=== PATIENT | male | born 1950 | race Caucasian/White ===

== ENCOUNTER 2022-02-12 13:20 | Inpatient (IN) | payer OTHER, SELFPAY ==
[2022-02-12] VITALS (12 sets, daily range): BP systolic 106–149; BP diastolic 64–88; PULSE 86–92; RESP 18–46; O2SAT 99–100; BMI 19.8; BMI 17.9
--- NOTE | 2022-02-12 14:00 | DI.RAD.S_ITS ---
PROCEDURE: XR ACUTE ABDOMEN SERIES INDICATIONS: abdominal pain, decreased BM TECHNIQUE: One view chest and two views of the abdomen were acquired. COMPARISON: None. FINDINGS: Surgical changes and devices: None. Chest: Lungs are clear. Heart size is normal. No pleural effusions. No pneumoperitoneum. Abdomen: Prominent colonic stool is present. There are several mildly dilated loops of colon in overall nonspecific pattern. No suspicious calcifications. Visualized solid organ contours appear normal. Bones: No suspicious bony lesions. IMPRESSION: Several prominent: Loops with significant stool consistent with constipation. Overall gas pattern is nonspecific. Dictated by: Margot Garcia M.D. on 02/12/2022 at 15:06 Approved by: Margot Garcia M.D. on 02/12/2022 at 15:15
--- NOTE | 2022-02-12 14:01 | ED_ITS ---
HPI - General Adult General Chief complaint: Abdominal Pain Stated complaint: Pain in Legs/Abdomen Time Seen by Provider: 02/12/22 13:32 History of Present Illness HPI narrative: 71-year-old male smoker presents by EMS for evaluation of abdominal pain and decreased bowel movements. He is well known to their EMS service and apparently frequently goes to [facility]. He lives at home alone but frequently has friends to check on him. He apparently has not been taking his medications for quite some time and has not been able to eat or drink. He does not have a phone and has not been able to call. He was seen by APS today who finally talked him into coming to be seen. He states he has not had a bowel movement multiple weeks and is unable to eat or drink, he does not have access to food and it is unclear why he is not taking his medications. He denies dizziness, lightheadedness but is profoundly weak. He denies chest pain, cough or shortness of breath. He states that he has abdominal pain and has had trouble with bowel movements for quite some time. He denies any urinary complaints. EMS states that his house is in terrible disrepair, patient is covered in his own urine and feces Related Data Allergies Allergy/AdvReac Type Severity Reaction Status Date / Time acetaminophen AdvReac Verified 02/12/22 14:11 aspirin AdvReac Verified 02/12/22 14:11 NSAIDS (Non-Steroidal AdvReac Verified 02/12/22 14:11 Anti-Inflamma Review of Systems Review of Systems Narrative: GENERAL: See HPI. HEENT: Denies sinus pain, ear pain, sore throat, difficulty swallowing, dizziness. RESPIRATORY: See HPI CARDIOVASCULAR: Denies chest pain, palpitations, orthopnea, edema, GASTROINTESTINAL: See HPI : Denies dysuria, frequency, incontinence, hematuria, urinary retention. MUSCULOSKELETAL: denies weakness, joint pain, or bony pain SKIN: Denies rash, skin lesions, or other NEUROLOGIC: Denies weakness, headache, numbness, change in speech, confusion, seizures, incoordination. PSYCHIATRIC: No concerning psychosocial issues. 12 point review of systems is negative except for those stated above Patient History Social History household members: friend(s) Smoking Status: Former smoker alcohol intake: former Exam Narrative Exam Narrative: GENERAL: [71] year old patient appears older than stated age. Thin, temporal wasting, poor skin turgor, foul-smelling of urine and fecal material HEAD: Atraumatic. Normocephalic. EYES: Pupils equal round and reactive. Extraocular motions intact. No scleral icterus. No injection or drainage. ENT: Poor dentition throughout, dry mucous membranes Nose without bleeding, purulent drainage. Throat without erythema, tonsillar hypertrophy or exudate. Airway patent. NECK: Trachea midline. Non tender CARDIOVASCULAR: Regular rate and rhythm without murmurs, gallops, or rubs. RESPIRATORY: Clear to auscultation. Breath sounds equal bilaterally. No wheezes, rales, or rhonchi. GASTROINTESTINAL: Abdomen soft, mild generalized tenderness, nondistended. Decreased bowel sounds in all 4 quadrants EXTREMITIES: Evidence of chronic venous stasis and some swelling, this is reported to be significantly improved over historical presentation by EMS BACK: Nontender without deformity or crepitance. No flank tenderness. NEURO: AOx3. SKIN: No rash or erythema of visible areas Initial Vital Signs Initial Vital Signs: Vital Signs Pulse Rate 91 H 02/12/22 13:57 Respiratory Rate 33 H 02/12/22 13:57 Pulse Oximetry 100 02/12/22 13:57 Course Orders Ordered: Hydromorphone HCl (Hydromorphone 0.5 Mg Inj) 0.25 mg IV Q4H PRN PRN Reason: Pain, Moderate (4-6) Last Admin: 02/13/22 00:23 Dose: 0.25 mg Documented By: JAMES Ceftriaxone Sodium 1,000 mg/ (Sodium Chloride) 100 mls @ 200 mls/hr IV Q24H [facility] Stop: 02/18/22 08:59 Last Admin: 02/13/22 08:56 Dose: 200 mls/hr Documented By: CANDIDO Melatonin (Melatonin 3 Mg Tablet) 6 mg PO BEDTIME PRN PRN Reason: Insomnia Naloxone HCl (Naloxone 0.4 Mg/Ml Vial) 0.2 mg IV Q2MIN PRN PRN Reason: Opiate Reversal Pantoprazole Sodium (Pantoprazole Dr 40 Mg Tablet) 40 mg PO 0700 [facility] Last Admin: 02/13/22 06:02 Dose: 40 mg Documented By: Admin: 02/12/22 19:46 Dose: 40 mg Documented By: JAMES Polyethylene Glycol (Polyethylene Glycol 3350 17 Gm Powd.Pack) 17 gm PO DAILY [facility] Last Admin: 02/13/22 09:11 Dose: Not Given Documented By: CANDIDO Sennosides (Sennosides 8.6 Mg Tablet) 8.6 mg PO BID [facility] Last Admin: 02/13/22 09:12 Dose: Not Given Documented By: Admin: 02/12/22 22:21 Dose: 8.6 mg Documented By: JAMES Discontinued Medications Sodium Chloride (Normal Saline 0.9%) 1,000 mls @ 1,000 mls/hr IV BOLUS ONE Stop: 02/12/22 14:48 Last Infusion: 02/12/22 16:43 Dose: 0 mls/hr Documented By: Admin: 02/12/22 15:16 Dose: 1,000 mls/hr Documented By: KAREN Sodium Chloride (Normal Saline 0.9%) 1,000 mls @ 1,000 mls/hr IV BOLUS ONE Stop: 02/12/22 17:52 Last Admin: 02/12/22 17:20 Dose: 1,000 mls/hr Documented By: KAREN Ceftriaxone Sodium 2,000 mg/ (Sodium Chloride) 100 mls @ 200 mls/hr IV NOW ONE Stop: 02/12/22 16:54 Last Admin: 02/12/22 17:20 Dose: 200 mls/hr Documented By: KAREN Sodium Chloride (Normal Saline 0.9%) 1,000 mls @ 125 mls/hr IV CONT KELLI Stop: 02/13/22 06:14 Last Admin: 02/13/22 04:05 Dose: 125 mls/hr Documented By: Infusion: 02/13/22 02:35 Dose: 125 mls/hr Documented By: Admin: 02/12/22 18:35 Dose: 125 mls/hr Documented By: CHELSI Potassium Chloride (Potassium Chloride 20 Meq Tab) 40 meq PO NOW ONE Stop: 02/12/22 18:45 Last Admin: 02/12/22 19:46 Dose: 40 meq Documented By: JAMES Vital Signs Vital signs: Vital Signs - 8 hr 02/12/22 13:57 02/12/22 14:00 02/12/22 14:22 Pulse Rate 91 H 92 H Respiratory Rate 33 H 40 H Blood Pressure 106/64 Pulse Oximetry 100 99 02/12/22 14:22 02/12/22 14:38 02/12/22 14:38 Pulse Rate 87 91 H Respiratory Rate 25 H 29 H Blood Pressure 138/80 Pulse Oximetry 100 99 02/12/22 15:00 02/12/22 15:00 02/12/22 15:30 Pulse Rate 88 Respiratory Rate 31 H Blood Pressure 134/74 134/74 Pulse Oximetry 100 02/12/22 15:30 02/12/22 16:00 02/12/22 16:00 Pulse Rate 86 88 Respiratory Rate 27 H 46 H Blood Pressure 149/80 H Pulse Oximetry 100 100 02/12/22 16:27 02/12/22 16:27 02/12/22 16:30 Pulse Rate 89 Respiratory Rate 22 Blood Pressure 139/79 143/88 H Pulse Oximetry 100 02/12/22 16:30 02/12/22 17:00 02/12/22 17:00 Pulse Rate 87 87 Respiratory Rate 22 21 Blood Pressure 140/81 Pulse Oximetry 100 100 02/12/22 17:30 Pulse Rate 90 Respiratory Rate 22 Blood Pressure Pulse Oximetry 100 Medical Decision Making Lab Data Result diagrams: 02/13/22 05:55 02/13/22 05:55 Labs: Lab Results 02/12/22 02/12/22 02/12/22 Range/Units 14:31 14:31 14:31 WBC 3.9 L (4.5-11.0) X10^3/uL RBC 2.99 L (4.5-5.9) X10^6/uL Hgb 9.2 L (13.5-17.5) g/dL Hct 27.0 L (41-53) % MCV 90.5 (80-100) fL MCH 30.8 (26-34) PG MCHC 34.0 (30-36) % RDW 16.7 H (11.6-14.8) % Plt Count 85 L (150-400) X10^3/uL Neut % (Auto) 57.3 (50-75) % Lymph % (Auto) 31.9 (25-40) % [place] % (Auto) 9.0 (3-14) % Eos % (Auto) 0.9 L (2-4) % Baso % (Auto) 0.9 (0-2) % Neut # (Auto) 2300 (2079-8641) /uL Lymph # (Auto) 1300 (7062-0857) /uL [place] # (Auto) 400 (0-900) /uL Eos # (Auto) 0 (0-450) /uL Baso # (Auto) 0 (0-100) /uL ESR 64 H (0-15) MM/HR PT 15.5 H (10.1-12.7) SECONDS INR 1.3 (0.9-1.3) APTT 28 (26-36) SECONDS Sodium 139 (137-145) mmol/L Potassium 3.4 (3.4-5.1) mmol/L Chloride 108 H (98-107) mmol/L Carbon Dioxide 23 (22-32) mmol/L BUN 15 (9-20) mg/dL Creatinine 0.75 (0.66-1.25) mg/dL Estimated GFR > 60 (>60) mL/min BUN/Creatinine Ratio 20.0 (6-22) Glucose 84 (80-110) mg/dL Lactate (0.7-2.1) mmol/L Calcium 7.2 L (8.4-10.2) mg/dL Magnesium 1.8 (1.6-2.3) mg/dL Total Bilirubin 0.5 (0.2-1.3) mg/dL AST 32 (17-59) IU/L ALT 17 (<50) IU/L Alkaline Phosphatase 191 H (38-126) U/L Total Creatine Kinase 41 L (55-170) U/L CK-MB (CK-2) TNP CK-MB (CK-2) Rel Index TNP Troponin I < 0.012 (0.01-0.034) ng/mL C-Reactive Protein 1.0 (<1.0) mg/dL NT-Pro-B Natriuret Pep 148 H (<125) pg/mL Total Protein 7.0 (6.3-8.2) g/dL Albumin 2.5 L (3.5-5.0) g/dL Globulin 4.5 H (1.7-4.1) g/dL Albumin/Globulin Ratio 0.6 L (1.0-2.8) Lipase 522 H (23-300) U/L Procalcitonin (<0.5) ng/mL TSH (0.47-4.68) uIU/mL Urine Color Urine Appearance Urine pH Ur Specific [place] Urine Protein Urine Glucose (UA) Urine Ketones Urine Occult Blood Urine Nitrate Urine Bilirubin Ur Bilirubin Confirm (Negative) Urine Urobilinogen Ur Leukocyte Esterase Urine RBC Urine WBC Ur Squamous Epith Cells Ur Transition Epith Cell Ur Renal Epithelial Cell Calcium Oxalate Crystal Uric Acid Crystals Triple Phos Crystals Other Crystals Amorphous Sediment Urine Bacteria Hyaline Casts Granular Casts RBC Casts WBC Casts Other Casts Urine Mucus Urine Trichomonas Urine Yeast Urine Sperm Ur Culture Indicated? Micro UA Comment U Opiates 300ng/mL cut (Negative) Ur Oxycodone Screen (Negative) Urine Methadone Screen (Negative) Ur Barbiturates Screen (Negative) U Tricyclic Antidepress (Negative) Ur Phencyclidine Scrn (Negative) Ur Amphetamines Screen (Negative) U Methamphetamines Scrn (Negative) Ur MDMA Scrn (Ecstasy) (Negative) U Benzodiazepines Scrn (Negative) Urine Cocaine Screen (Negative) U Marijuana (THC) Screen (Negative) Ethyl Alcohol ( - 10) mg/dL SARS-CoV-2 (PCR) (Negative) 02/12/22 02/12/22 02/12/22 Range/Units 14:31 14:31 14:31 WBC (4.5-11.0) X10^3/uL RBC (4.5-5.9) X10^6/uL Hgb (13.5-17.5) g/dL Hct (41-53) % MCV (80-100) fL MCH (26-34) PG MCHC (30-36) % RDW (11.6-14.8) % Plt Count (150-400) X10^3/uL Neut % (Auto) (50-75) % Lymph % (Auto) (25-40) % [place] % (Auto) (3-14) % Eos % (Auto) (2-4) % Baso % (Auto) (0-2) % Neut # (Auto) (7938-1190) /uL Lymph # (Auto) (9986-7575) /uL [place] # (Auto) (0-900) /uL Eos # (Auto) (0-450) /uL Baso # (Auto) (0-100) /uL ESR (0-15) MM/HR PT (10.1-12.7) SECONDS INR (0.9-1.3) APTT (26-36) SECONDS Sodium (137-145) mmol/L Potassium (3.4-5.1) mmol/L Chloride (98-107) mmol/L Carbon Dioxide (22-32) mmol/L BUN (9-20) mg/dL Creatinine (0.66-1.25) mg/dL Estimated GFR (>60) mL/min BUN/Creatinine Ratio (6-22) Glucose (80-110) mg/dL Lactate 2.3 H (0.7-2.1) mmol/L Calcium (8.4-10.2) mg/dL Magnesium (1.6-2.3) mg/dL Total Bilirubin (0.2-1.3) mg/dL AST (17-59) IU/L ALT (<50) IU/L Alkaline Phosphatase (38-126) U/L Total Creatine Kinase (55-170) U/L CK-MB (CK-2) CK-MB (CK-2) Rel Index Troponin I (0.01-0.034) ng/mL C-Reactive Protein (<1.0) mg/dL NT-Pro-B Natriuret Pep (<125) pg/mL Total Protein (6.3-8.2) g/dL Albumin (3.5-5.0) g/dL Globulin (1.7-4.1) g/dL Albumin/Globulin Ratio (1.0-2.8) Lipase (23-300) U/L Procalcitonin 0.13 (<0.5) ng/mL TSH 3.38 (0.47-4.68) uIU/mL Urine Color Urine Appearance Urine pH Ur Specific [place] Urine Protein Urine Glucose (UA) Urine Ketones Urine Occult Blood Urine Nitrate Urine Bilirubin Ur Bilirubin Confirm (Negative) Urine Urobilinogen Ur Leukocyte Esterase Urine RBC Urine WBC Ur Squamous Epith Cells Ur Transition Epith Cell Ur Renal Epithelial Cell Calcium Oxalate Crystal Uric Acid Crystals Triple Phos Crystals Other Crystals Amorphous Sediment Urine Bacteria Hyaline Casts Granular Casts RBC Casts WBC Casts Other Casts Urine Mucus Urine Trichomonas Urine Yeast Urine Sperm Ur Culture Indicated? Micro UA Comment U Opiates 300ng/mL cut (Negative) Ur Oxycodone Screen (Negative) Urine Methadone Screen (Negative) Ur Barbiturates Screen (Negative) U Tricyclic Antidepress (Negative) Ur Phencyclidine Scrn (Negative) Ur Amphetamines Screen (Negative) U Methamphetamines Scrn (Negative) Ur MDMA Scrn (Ecstasy) (Negative) U Benzodiazepines Scrn (Negative) Urine Cocaine Screen (Negative) U Marijuana (THC) Screen (Negative) Ethyl Alcohol ( - 10) mg/dL SARS-CoV-2 (PCR) (Negative) 02/12/22 02/12/22 02/12/22 Range/Units 14:31 15:46 15:46 WBC (4.5-11.0) X10^3/uL RBC (4.5-5.9) X10^6/uL Hgb (13.5-17.5) g/dL Hct (41-53) % MCV (80-100) fL MCH (26-34) PG MCHC (30-36) % RDW (11.6-14.8) % Plt Count (150-400) X10^3/uL Neut % (Auto) (50-75) % Lymph % (Auto) (25-40) % [place] % (Auto) (3-14) % Eos % (Auto) (2-4) % Baso % (Auto) (0-2) % Neut # (Auto) (9425-5512) /uL Lymph # (Auto) (3784-3246) /uL [place] # (Auto) (0-900) /uL Eos # (Auto) (0-450) /uL Baso # (Auto) (0-100) /uL ESR (0-15) MM/HR PT (10.1-12.7) SECONDS INR (0.9-1.3) APTT (26-36) SECONDS Sodium (137-145) mmol/L Potassium (3.4-5.1) mmol/L Chloride (98-107) mmol/L Carbon Dioxide (22-32) mmol/L BUN (9-20) mg/dL Creatinine (0.66-1.25) mg/dL Estimated GFR (>60) mL/min BUN/Creatinine Ratio (6-22) Glucose (80-110) mg/dL Lactate (0.7-2.1) mmol/L Calcium (8.4-10.2) mg/dL Magnesium (1.6-2.3) mg/dL Total Bilirubin (0.2-1.3) mg/dL AST (17-59) IU/L ALT (<50) IU/L Alkaline Phosphatase (38-126) U/L Total Creatine Kinase (55-170) U/L CK-MB (CK-2) CK-MB (CK-2) Rel Index Troponin I (0.01-0.034) ng/mL C-Reactive Protein (<1.0) mg/dL NT-Pro-B Natriuret Pep (<125) pg/mL Total Protein (6.3-8.2) g/dL Albumin (3.5-5.0) g/dL Globulin (1.7-4.1) g/dL Albumin/Globulin Ratio (1.0-2.8) Lipase (23-300) U/L Procalcitonin (<0.5) ng/mL TSH (0.47-4.68) uIU/mL Urine Color Cancelled Urine Appearance Cancelled Urine pH Cancelled Ur Specific [place] Cancelled Urine Protein Cancelled Urine Glucose (UA) Cancelled Urine Ketones Cancelled Urine Occult Blood Cancelled Urine Nitrate Cancelled Urine Bilirubin Cancelled Ur Bilirubin Confirm (Negative) Urine Urobilinogen Cancelled Ur Leukocyte Esterase Cancelled Urine RBC Cancelled 30-100/hpf H Urine WBC Cancelled 5-10/hpf H Ur Squamous Epith Cells Cancelled Ur Transition Epith Cell Cancelled Ur Renal Epithelial Cell Cancelled Calcium Oxalate Crystal Cancelled Uric Acid Crystals Cancelled Triple Phos Crystals Cancelled Other Crystals Cancelled Amorphous Sediment Cancelled Urine Bacteria Cancelled Many (>30) H Hyaline Casts Cancelled Granular Casts Cancelled RBC Casts Cancelled WBC Casts Cancelled Other Casts Cancelled Urine Mucus Cancelled Urine Trichomonas Cancelled Urine Yeast Cancelled Urine Sperm Cancelled Ur Culture Indicated? Cancelled Micro UA Comment Cancelled U Opiates 300ng/mL cut (Negative) Ur Oxycodone Screen (Negative) Urine Methadone Screen (Negative) Ur Barbiturates Screen (Negative) U Tricyclic Antidepress (Negative) Ur Phencyclidine Scrn (Negative) Ur Amphetamines Screen (Negative) U Methamphetamines Scrn (Negative) Ur MDMA Scrn (Ecstasy) (Negative) U Benzodiazepines Scrn (Negative) Urine Cocaine Screen (Negative) U Marijuana (THC) Screen (Negative) Ethyl Alcohol < 10 ( - 10) mg/dL SARS-CoV-2 (PCR) (Negative) 02/12/22 02/12/22 02/12/22 Range/Units 15:46 15:46 15:46 WBC (4.5-11.0) X10^3/uL RBC (4.5-5.9) X10^6/uL Hgb (13.5-17.5) g/dL Hct (41-53) % MCV (80-100) fL MCH (26-34) PG MCHC (30-36) % RDW (11.6-14.8) % Plt Count (150-400) X10^3/uL Neut % (Auto) (50-75) % Lymph % (Auto) (25-40) % [place] % (Auto) (3-14) % Eos % (Auto) (2-4) % Baso % (Auto) (0-2) % Neut # (Auto) (1693-9824) /uL Lymph # (Auto) (9794-0004) /uL [place] # (Auto) (0-900) /uL Eos # (Auto) (0-450) /uL Baso # (Auto) (0-100) /uL ESR (0-15) MM/HR PT (10.1-12.7) SECONDS INR (0.9-1.3) APTT (26-36) SECONDS Sodium (137-145) mmol/L Potassium (3.4-5.1) mmol/L Chloride (98-107) mmol/L Carbon Dioxide (22-32) mmol/L BUN (9-20) mg/dL Creatinine (0.66-1.25) mg/dL Estimated GFR (>60) mL/min BUN/Creatinine Ratio (6-22) Glucose (80-110) mg/dL Lactate (0.7-2.1) mmol/L Calcium (8.4-10.2) mg/dL Magnesium (1.6-2.3) mg/dL Total Bilirubin (0.2-1.3) mg/dL AST (17-59) IU/L ALT (<50) IU/L Alkaline Phosphatase (38-126) U/L Total Creatine Kinase (55-170) U/L CK-MB (CK-2) CK-MB (CK-2) Rel Index Troponin I (0.01-0.034) ng/mL C-Reactive Protein (<1.0) mg/dL NT-Pro-B Natriuret Pep (<125) pg/mL Total Protein (6.3-8.2) g/dL Albumin (3.5-5.0) g/dL Globulin (1.7-4.1) g/dL Albumin/Globulin Ratio (1.0-2.8) Lipase (23-300) U/L Procalcitonin (<0.5) ng/mL TSH (0.47-4.68) uIU/mL Urine Color Cancelled Urine Appearance Cancelled Urine pH Cancelled Ur Specific [place] Cancelled Urine Protein Cancelled Urine Glucose (UA) Cancelled Urine Ketones Cancelled Urine Occult Blood Cancelled Urine Nitrate Cancelled Urine Bilirubin Cancelled Ur Bilirubin Confirm Negative (Negative) Urine Urobilinogen Cancelled Ur Leukocyte Esterase Cancelled Urine RBC Cancelled Urine WBC Cancelled Ur Squamous Epith Cells Cancelled Ur Transition Epith Cell Cancelled Ur Renal Epithelial Cell Cancelled Calcium Oxalate Crystal Cancelled Uric Acid Crystals Cancelled Triple Phos Crystals Cancelled Other Crystals Cancelled Amorphous Sediment Cancelled Urine Bacteria Cancelled Hyaline Casts Cancelled Granular Casts Cancelled RBC Casts Cancelled WBC Casts Cancelled Other Casts Cancelled Urine Mucus Cancelled Urine Trichomonas Cancelled Urine Yeast Cancelled Urine Sperm Cancelled Ur Culture Indicated? Cancelled Micro UA Comment Cancelled U Opiates 300ng/mL cut Negative (Negative) Ur Oxycodone Screen Negative (Negative) Urine Methadone Screen Negative (Negative) Ur Barbiturates Screen Negative (Negative) U Tricyclic Antidepress Negative (Negative) Ur Phencyclidine Scrn Negative (Negative) Ur Amphetamines Screen Negative (Negative) U Methamphetamines Scrn Positive H (Negative) Ur MDMA Scrn (Ecstasy) Negative (Negative) U Benzodiazepines Scrn Negative (Negative) Urine Cocaine Screen Negative (Negative) U Marijuana (THC) Screen Negative (Negative) Ethyl Alcohol ( - 10) mg/dL SARS-CoV-2 (PCR) (Negative) 02/12/22 02/12/22 Range/Units 16:11 16:40 WBC (4.5-11.0) X10^3/uL RBC (4.5-5.9) X10^6/uL Hgb (13.5-17.5) g/dL Hct (41-53) % MCV (80-100) fL MCH (26-34) PG MCHC (30-36) % RDW (11.6-14.8) % Plt Count (150-400) X10^3/uL Neut % (Auto) (50-75) % Lymph % (Auto) (25-40) % [place] % (Auto) (3-14) % Eos % (Auto) (2-4) % Baso % (Auto) (0-2) % Neut # (Auto) (9457-8740) /uL Lymph # (Auto) (9224-5535) /uL [place] # (Auto) (0-900) /uL Eos # (Auto) (0-450) /uL Baso # (Auto) (0-100) /uL ESR (0-15) MM/HR PT (10.1-12.7) SECONDS INR (0.9-1.3) APTT (26-36) SECONDS Sodium (137-145) mmol/L Potassium (3.4-5.1) mmol/L Chloride (98-107) mmol/L Carbon Dioxide (22-32) mmol/L BUN (9-20) mg/dL Creatinine (0.66-1.25) mg/dL Estimated GFR (>60) mL/min BUN/Creatinine Ratio (6-22) Glucose (80-110) mg/dL Lactate 1.3 (0.7-2.1) mmol/L Calcium (8.4-10.2) mg/dL Magnesium (1.6-2.3) mg/dL Total Bilirubin (0.2-1.3) mg/dL AST (17-59) IU/L ALT (<50) IU/L Alkaline Phosphatase (38-126) U/L Total Creatine Kinase (55-170) U/L CK-MB (CK-2) CK-MB (CK-2) Rel Index Troponin I (0.01-0.034) ng/mL C-Reactive Protein (<1.0) mg/dL NT-Pro-B Natriuret Pep (<125) pg/mL Total Protein (6.3-8.2) g/dL Albumin (3.5-5.0) g/dL Globulin (1.7-4.1) g/dL Albumin/Globulin Ratio (1.0-2.8) Lipase (23-300) U/L Procalcitonin (<0.5) ng/mL TSH (0.47-4.68) uIU/mL Urine Color Urine Appearance Urine pH Ur Specific [place] Urine Protein Urine Glucose (UA) Urine Ketones Urine Occult Blood Urine Nitrate Urine Bilirubin Ur Bilirubin Confirm (Negative) Urine Urobilinogen Ur Leukocyte Esterase Urine RBC Urine WBC Ur Squamous Epith Cells Ur Transition Epith Cell Ur Renal Epithelial Cell Calcium Oxalate Crystal Uric Acid Crystals Triple Phos Crystals Other Crystals Amorphous Sediment Urine Bacteria Hyaline Casts Granular Casts RBC Casts WBC Casts Other Casts Urine Mucus Urine Trichomonas Urine Yeast Urine Sperm Ur Culture Indicated? Micro UA Comment U Opiates 300ng/mL cut (Negative) Ur Oxycodone Screen (Negative) Urine Methadone Screen (Negative) Ur Barbiturates Screen (Negative) U Tricyclic Antidepress (Negative) Ur Phencyclidine Scrn (Negative) Ur Amphetamines Screen (Negative) U Methamphetamines Scrn (Negative) Ur MDMA Scrn (Ecstasy) (Negative) U Benzodiazepines Scrn (Negative) Urine Cocaine Screen (Negative) U Marijuana (THC) Screen (Negative) Ethyl Alcohol ( - 10) mg/dL SARS-CoV-2 (PCR) Positive H (Negative) Urine Dip Bedside Urine Glucose Negative Bedside Urine Bilirubin - Negative Bedside Urine Ketone - Negative Urine Specific [place] 1.020 Bedside Urine Occult Blood +++ Bedside Urine pH 6.0 Bedside Urine Protein +/- 15 Bedside Urine Urobilinogen +/- 1mg Bedside Urine Nitrite + Positive Bedside Urine Leukocytes + 70 Esterase Point of care testing: Urine Dip Bedside Urine Glucose Negative Bedside Urine Bilirubin - Negative Bedside Urine Ketone - Negative Urine Specific [place] 1.020 Bedside Urine Occult Blood +++ Bedside Urine pH 6.0 Bedside Urine Protein +/- 15 Bedside Urine Urobilinogen +/- 1mg Bedside Urine Nitrite + Positive Bedside Urine Leukocytes + 70 Esterase MDM Narrative Medical decision making narrative: [71-year-old male presents by EMS for evaluation of abdominal pain] Multiple etiologies for patient's symptoms considered including, but not limited to: [Bowel obstruction, pancreatitis versus other] Prior Charts reviewed: Charts sent up from [facility] Emergency Department Labs reviewed and interpreted by myself: Lipase noted to be elevated, there is evidence of UTI which has been treated Imaging reviewed: No obstructive process noted on imaging, no evidence of pancreatitis on CT Patient will require hospitalization to treat and stabilize pancreatitis and urinary tract infection. Furthermore social determinants contributing to his decision include APS consultation earlier, patient's inability to eat, drink and perform ADLs at home with lack of social support. Patient has not had access to medications and will require social work consultation Patient's symptoms improved over duration of stay with above-stated therapies. Findings and admission diagnosis discussed with patient/family followed by verbalization of understanding Discharge Plan Departure Patient Disposition: Admitted as Observation Clinical Impression: Acute pancreatitis, Acute UTI Admit Date/Time: 02/12/22 17:34 Admit Provider: Rashid Moncada
[2022-02-12 14:42] LABS: Add Manual Diff / Slide Review NO; Basophils Absolute Auto 0 /uL (0-100); Basophils Percent Auto 0.9 % (0-2); Eosinophils Absolute Auto 0 /uL (0-450); Eosinophils Percent Auto 0.9 % (2-4); Hemoglobin 9.2 g/dL (13.5-17.5); Lymphocytes Absolute Auto 1300 /uL (1100-4500); Lymphocytes Percent Auto 31.9 % (25-40); Mean Corpuscular Hemoglobin 30.8 PG (26-34); Mean Corpuscular Volume 90.5 fL (80-100); Monocytes Absolute Auto 400 /uL (0-900); Neutrophils Absolute Auto 2300 /uL (1500-7000); Neutrophils Percent Auto 57.3 % (50-75); Platelet Count 85 X10^3/uL (150-400); Red Blood Cell Count 2.99 X10^6/uL (4.5-5.9); Red Cell Distribution Width 16.7 % (11.6-14.8); White Blood Cell Count 3.9 X10^3/uL (4.5-11.0)
[2022-02-12 14:43] LABS: INR 1.3 (0.9-1.3); Prothrombin Time 15.5 SECONDS (10.1-12.7)
[2022-02-12 14:46] LABS: PTT Partial Thromboplastin Tim 28 SECONDS (26-36)
[2022-02-12 14:50] LABS: Lactate (Lactic Acid) 2.3 mmol/L (0.7-2.1)
[2022-02-12 14:54] LABS: Alanine Aminotransferase 17 IU/L (<50); Albumin 2.5 g/dL (3.5-5.0); Albumin Globulin Ratio 0.6 (1.0-2.8); Alkaline Phosphatase 191 U/L (38-126); Aspartate Aminotransferase 32 IU/L (17-59); Bilirubin Total 0.5 mg/dL (0.2-1.3); Blood Urea Nitrogen 15 mg/dL (9-20); Carbon Dioxide 23 mmol/L (22-32); Chloride 108 mmol/L (98-107); Creatine Kinase 41 U/L (55-170); Estimated Glomerular Filt Rate > 60 mL/min (>60); Globulin 4.5 g/dL (1.7-4.1); Glucose 84 mg/dL (80-110); HEMOLYSIS < 15 (0-50); Lipase 522 U/L (23-300); Magnesium 1.8 mg/dL (1.6-2.3); Potassium 3.4 mmol/L (3.4-5.1); Sodium 139 mmol/L (137-145)
[2022-02-12 15:03] LABS: NT-proBNP (BNP-Adult 18+) 148 pg/mL (<125); Troponin I < 0.012 ng/mL (0.01-0.034)
[2022-02-12 15:07] LABS: Erythrocyte Sedimentation Rate 64 MM/HR (0-15)
[2022-02-12 15:13] LABS: Calcium 7.2 mg/dL (8.4-10.2)
[2022-02-12] MEDS: SODIUM CHLORIDE 0.9% 1,000 ML 1000 ML IV ×2 (15:16→17:20)
--- NOTE | 2022-02-12 15:44 | DI.CT.S_ITS ---
PROCEDURE: CT CHEST ABD PEL W CON INDICATIONS: pain, elevated lipase TECHNIQUE: After the administration of intravenous contrast, 5 mm thick sections acquired from the lung apices to the symphysis. 5 mm coronal and sagittal reformats were performed, with additional 7 mm MIP reformats through the lungs. For radiation dose reduction, the following was used: automated exposure control, adjustment of mA and/or kV according to patient size. COMPARISON: None. FINDINGS: Image quality: Excellent. CHEST: Lungs and pleura: No acute air space opacities. Patchy areas of atelectasis in the right posterior lung base are seen. No pleural effusions or pneumothorax. Central and peripheral airways are patent and normal in caliber. Mediastinum: Heart size is normal. No pericardial effusion. No mediastinal adenopathy by size criteria. The aorta has atherosclerosis with no aneurysmal dilatation. Esophagus is normal in caliber. Small hiatal hernia. Chest wall: No axillary or supraclavicular adenopathy by size criteria. Thyroid gland is normal . ABDOMEN: Liver: The liver is cirrhotic. There is enlargement of the left lobe of the liver. The right lobe of the liver has a 1.8 cm hypodensity in hepatic segment VII which is indeterminate, with a density of 55 Hounsfield units. The main portal vein is dilated measuring 1.7 cm. Biliary: The gallbladder has a large stone. No wall thickening or pericholecystic fluid. Pancreas: The pancreas has no mass or ductal dilatation. There is no surrounding inflammation. Spleen: The spleen is enlarged. Adrenals: No hypertrophy or nodules. Kidneys: No obstructive calculus or hydronephrosis. No solid mass. No cystic mass. Bowel: Small hiatal hernia. The stomach is normal. The small bowel has a normal caliber and appearance. The terminal ileum is normal. The large bowel has increased stool consistent with constipation. The appendix is not definitively visualized and therefore acute appendicitis cannot be excluded; however there are no secondary findings to suggest acute appendicitis. Small amount of ascites is seen. No free air. Nodes and vessels: No retroperitoneal or mesenteric adenopathy by size criteria. The aorta has atherosclerosis with no aneurysmal dilatation. Abdominal wall: No abdominal wall mass or hernia. PELVIS: Genitourinary: The bladder has no wall thickening or mass. No bladder calcifications. Bone: Degenerative changes with no focal abnormality. No vertebral body compression fractures. Multiple healed bilateral rib fractures. Multiple healed bilateral rib fractures. IMPRESSION: 1. Cirrhosis with evidence of portal venous hypertension including ascites, enlargement of the main portal vein, and splenomegaly. 2. 1.8 cm hypodensity in hepatic segment VII is indeterminate and cannot exclude neoplasm. In the setting of cirrhosis hepatocellular carcinoma should be considered. Recommend correlation with AFP. 3. Cholelithiasis without evidence of cholecystitis. 4. Coronary artery disease. Dictated by: Júnior Todd M.D. on 02/12/2022 at 16:51 Approved by: Júnior Todd M.D. on 02/12/2022 at 17:05
[2022-02-12 16:02] LABS: RBC Urine 30-100/HPF (0-5/HPF)
[2022-02-12 16:03] LABS: Bacteria Urine Many (>30); Ictotest Urine Negative (Negative); WBC Urine 5-10/HPF (0-5/HPF)
--- NOTE | 2022-02-12 16:13 | PC.NURSE ---
pt presents to ER with incontinence of bowel. permission obtained to cut clothing off pt. fecal matter is caked on pt and appears to have been there for some time. attempts made to clean this off, pt did not tolerate well. states it feels like i am rubbing my skin off. soiled brief taken off patient, mold was present on brief. pt has scale like appearance on bilateral lower extremities. EMS reports this is much improved since last seen. pt did have severe edema that was oozing previously. Edema is localized to feet currently. good pedal pulses palpated. pt has redness, stage one pressure ulcer on left hip. states he thinks it is out of socket or broken, denies any trauma. pt states he has history of kidney stones and he can feel them now blocking his penis, which makes it hard to pee. Pt urinated with much difficulty, blood seen dripping of urethral meatus. tip of penis is very swollen and has open sores present. multiple sores in various stages of healing on forearms.
[2022-02-12 16:31] LABS: Reflexed Lactate in 2 Hours Y
[2022-02-12 16:48] LABS: COVID19 -Nasal RAPID POSITIVE (Negative)
[2022-02-12] MEDS: cefTRIAXone 2,000 MG in SODIUM CHLORIDE 0.9% 100 ML 200 MG IV (17:20)
[2022-02-12 17:23] LABS: Lactate 2HR (Lactic Acid Rflx) 1.3 mmol/L (0.7-2.1)
--- NOTE | 2022-02-12 18:31 | P.HP_ITS ---
History of Present Illness History of Present Illness Date Patient Seen: 02/12/22 Time Patient Seen: 18:34 Chief complaint: Pain in Legs/Abdomen Narrative: Demarcus Paredes is a 71yo M with past medical history of 60 pack year smoker, and previous alcohol abuse who presents to the ED from EMS due to being found in his home covered in stool and urine and his home in disarray. Found to be COVID positive in ED. Patient is very hard of hearing. He says his abdominal pain is due to acid reflux. He is wanting to eat and asking for juice. Patient says he was supposed to get a colonoscopy coming up but he cancelled it due to not having a ride to get there. Patient says he has friends who bring him food and cook for him. He says he has trouble walking so stays in bed most of the time. He denies recent alcohol use but said he drank heavily in the past. Continues to smoke. Says he has had a cough with dyspnea the past week or so and didn't realize he had COVID. He denies CP, NV, diarrhea or headache. Patient History Family & Social History Safety & Behavioral: Feels Safe in Current Unwilling to Answer Environment Been Physically Hurt or Unwilling to Answer Threatened By a Person Tobacco & Substance use: Smoking Status Former smoker Substance Use Type does not use Meds Home Medications and Allergies Allergies Allergy/AdvReac Type Severity Reaction Status Date / Time acetaminophen AdvReac Verified 02/12/22 14:11 aspirin AdvReac Verified 02/12/22 14:11 NSAIDS (Non-Steroidal AdvReac Verified 02/12/22 14:11 Anti-Inflamma Review of Systems Review of Systems Narrative: All other systems reviewed with the patient and are negative unless otherwise stated. Exam Vital Signs (past 8 hours): - 02/12/22 13:57 02/12/22 14:00 02/12/22 14:22 Pulse Rate 91 H 92 H Respiratory Rate 33 H 40 H Blood Pressure 106/64 Pulse Oximetry 100 99 02/12/22 14:22 02/12/22 14:38 02/12/22 14:38 Pulse Rate 87 91 H Respiratory Rate 25 H 29 H Blood Pressure 138/80 Pulse Oximetry 100 99 02/12/22 15:00 02/12/22 15:00 02/12/22 15:30 Pulse Rate 88 Respiratory Rate 31 H Blood Pressure 134/74 134/74 Pulse Oximetry 100 02/12/22 15:30 02/12/22 16:00 02/12/22 16:00 Pulse Rate 86 88 Respiratory Rate 27 H 46 H Blood Pressure 149/80 H Pulse Oximetry 100 100 02/12/22 16:27 02/12/22 16:27 02/12/22 16:30 Pulse Rate 89 Respiratory Rate 22 Blood Pressure 139/79 143/88 H Pulse Oximetry 100 02/12/22 16:30 02/12/22 17:00 02/12/22 17:00 Pulse Rate 87 87 Respiratory Rate 22 21 Blood Pressure 140/81 Pulse Oximetry 100 100 02/12/22 17:30 Pulse Rate 90 Respiratory Rate 22 Blood Pressure Pulse Oximetry 100 Narrative Exam Narrative: GEN: no acute distress HEENT: moist mucous membranes, PERRL NECK: trachea midline, no JVD CV: regular rate and rhythm, no murmurs PULM: clear bilaterally ABD: soft, nontender, nondistended, no organomegaly EXT: warm and well perfused with no edema NEURO: awake, alert, oriented, no focal deficits Objective Labs Result Diagrams: 02/12/22 14:31 02/12/22 14:31 Labs: Laboratory Results - last 24 hr 02/12/22 02/12/22 02/12/22 14:31 14:31 14:31 WBC 3.9 L RBC 2.99 L Hgb 9.2 L Hct 27.0 L MCV 90.5 MCH 30.8 MCHC 34.0 RDW 16.7 H Plt Count 85 L Neut % (Auto) 57.3 Lymph % (Auto) 31.9 [place] % (Auto) 9.0 Eos % (Auto) 0.9 L Baso % (Auto) 0.9 Neut # (Auto) 2300 Lymph # (Auto) 1300 [place] # (Auto) 400 Eos # (Auto) 0 Baso # (Auto) 0 ESR 64 H PT 15.5 H INR 1.3 APTT 28 Sodium 139 Potassium 3.4 Chloride 108 H Carbon Dioxide 23 BUN 15 Creatinine 0.75 Estimated GFR > 60 BUN/Creatinine Ratio 20.0 Glucose 84 Lactate Calcium 7.2 L Magnesium 1.8 Total Bilirubin 0.5 AST 32 ALT 17 Alkaline Phosphatase 191 H Total Creatine Kinase 41 L CK-MB (CK-2) TNP CK-MB (CK-2) Rel Index TNP Troponin I < 0.012 C-Reactive Protein 1.0 NT-Pro-B Natriuret Pep 148 H Total Protein 7.0 Albumin 2.5 L Globulin 4.5 H Albumin/Globulin Ratio 0.6 L Lipase 522 H Urine Color Urine Appearance Urine pH Ur Specific [place] Urine Protein Urine Glucose (UA) Urine Ketones Urine Occult Blood Urine Nitrate Urine Bilirubin Ur Bilirubin Confirm Urine Urobilinogen Ur Leukocyte Esterase Urine RBC Urine WBC Ur Squamous Epith Cells Ur Transition Epith Cell Ur Renal Epithelial Cell Calcium Oxalate Crystal Uric Acid Crystals Triple Phos Crystals Other Crystals Amorphous Sediment Urine Bacteria Hyaline Casts Granular Casts RBC Casts WBC Casts Other Casts Urine Mucus Urine Trichomonas Urine Yeast Urine Sperm Ur Culture Indicated? Micro UA Comment SARS-CoV-2 (PCR) 02/12/22 02/12/22 02/12/22 14:31 15:46 15:46 WBC RBC Hgb Hct MCV MCH MCHC RDW Plt Count Neut % (Auto) Lymph % (Auto) [place] % (Auto) Eos % (Auto) Baso % (Auto) Neut # (Auto) Lymph # (Auto) [place] # (Auto) Eos # (Auto) Baso # (Auto) ESR PT INR APTT Sodium Potassium Chloride Carbon Dioxide BUN Creatinine Estimated GFR BUN/Creatinine Ratio Glucose Lactate 2.3 H Calcium Magnesium Total Bilirubin AST ALT Alkaline Phosphatase Total Creatine Kinase CK-MB (CK-2) CK-MB (CK-2) Rel Index Troponin I C-Reactive Protein NT-Pro-B Natriuret Pep Total Protein Albumin Globulin Albumin/Globulin Ratio Lipase Urine Color Cancelled Urine Appearance Cancelled Urine pH Cancelled Ur Specific [place] Cancelled Urine Protein Cancelled Urine Glucose (UA) Cancelled Urine Ketones Cancelled Urine Occult Blood Cancelled Urine Nitrate Cancelled Urine Bilirubin Cancelled Ur Bilirubin Confirm Urine Urobilinogen Cancelled Ur Leukocyte Esterase Cancelled Urine RBC Cancelled 30-100/hpf H Urine WBC Cancelled 5-10/hpf H Ur Squamous Epith Cells Cancelled Ur Transition Epith Cell Cancelled Ur Renal Epithelial Cell Cancelled Calcium Oxalate Crystal Cancelled Uric Acid Crystals Cancelled Triple Phos Crystals Cancelled Other Crystals Cancelled Amorphous Sediment Cancelled Urine Bacteria Cancelled Many (>30) H Hyaline Casts Cancelled Granular Casts Cancelled RBC Casts Cancelled WBC Casts Cancelled Other Casts Cancelled Urine Mucus Cancelled Urine Trichomonas Cancelled Urine Yeast Cancelled Urine Sperm Cancelled Ur Culture Indicated? Cancelled Micro UA Comment Cancelled SARS-CoV-2 (PCR) 02/12/22 02/12/22 02/12/22 15:46 16:11 16:40 WBC RBC Hgb Hct MCV MCH MCHC RDW Plt Count Neut % (Auto) Lymph % (Auto) [place] % (Auto) Eos % (Auto) Baso % (Auto) Neut # (Auto) Lymph # (Auto) [place] # (Auto) Eos # (Auto) Baso # (Auto) ESR PT INR APTT Sodium Potassium Chloride Carbon Dioxide BUN Creatinine Estimated GFR BUN/Creatinine Ratio Glucose Lactate 1.3 Calcium Magnesium Total Bilirubin AST ALT Alkaline Phosphatase Total Creatine Kinase CK-MB (CK-2) CK-MB (CK-2) Rel Index Troponin I C-Reactive Protein NT-Pro-B Natriuret Pep Total Protein Albumin Globulin Albumin/Globulin Ratio Lipase Urine Color Urine Appearance Urine pH Ur Specific [place] Urine Protein Urine Glucose (UA) Urine Ketones Urine Occult Blood Urine Nitrate Urine Bilirubin Ur Bilirubin Confirm Negative Urine Urobilinogen Ur Leukocyte Esterase Urine RBC Urine WBC Ur Squamous Epith Cells Ur Transition Epith Cell Ur Renal Epithelial Cell Calcium Oxalate Crystal Uric Acid Crystals Triple Phos Crystals Other Crystals Amorphous Sediment Urine Bacteria Hyaline Casts Granular Casts RBC Casts WBC Casts Other Casts Urine Mucus Urine Trichomonas Urine Yeast Urine Sperm Ur Culture Indicated? Micro UA Comment SARS-CoV-2 (PCR) Positive H Assessment & Plan Assessment & Plan narrative: # generalized abd pain -patient says he has pain from acid reflux -start protonix po daily # UTI -pyuria on UA, culture pending -continue rocephin 1g daily x5 days # COVID positive -tested positive in ED, no current resp symptoms and on room air so will not treat -isolation precautions # cirrhosis with ascites and portal HTN # 1.8cm hepatic density concerning for HCC -seen on CT abd pelvis, pt notes he previously drank alcohol heavily so likely cause of cirrhosis -check AFP, ethanol level #normocytic anemia, thrombocytopenia -Hgb 9.2 and platelets 85, likely due to cirrhosis -will avoid lovenox/heparin as platelets <100k -monitor for bleeding # hypokalemia -K 3.4 on admission -replete and monitor # constipation -scheduled laxatives # failure to thrive # unsafe living environment -patient apparently not caring for himself and house is in disarray -brought in covered in urine and feces -MASS [employer] consult for dispo planning # malnutrition -evidence of temporal wasting on exam -fixed capital clerk consult Code status is full code. COVID positive. DVT prophylaxis with SCD's. Patient has no proxy. I have reviewed home meds and used all available resources to reconcile the home meds. This patient will be admitted as obs and will require less than 2 midnights of hospital time to treat UTI, failure to thrive. Time Spent With Patient Critical Care time: I spent a total of [] minutes of critical care time on this patient's care today; this time is exclusive of procedural time.
[2022-02-12] MEDS: SODIUM CHLORIDE 0.9% 1,000 ML 125 ML IV (18:35)
[2022-02-12 19:08] LABS: Ethanol (ETOH) < 10 mg/dL
[2022-02-12 19:24] LABS: Procalcitonin 0.13 ng/mL (<0.5)
--- NOTE | 2022-02-12 19:28 | PC.NURSE ---
Pt arrived on a stretcher from ED at 1800, incredibly hard of hearing making assessment difficult. Alert and oriented to self and location. Lung sounds diminished, bowel sounds present. Legs contracted, unable to straighten. Bedding soiled, pt cleaned and bedding changed. Pt moaned with pain during movement and with any pressure to his skin from the washcloth. Open/reddened areas on back and all over bottom, very painful to patient. Open sores on penis. Skin on bilat LE rough, scaly and discolored from knees down. Pictures taken for documentation. NS at 125mL/hr infusing to IV in L forearm. Pt oriented to call light, bed left in low position, bed alarm activated.
[2022-02-12 19:40] LABS: TSH w/ Reflex to FT4 3.38 uIU/mL (0.47-4.68)
[2022-02-12] MEDS: PANTOPRAZOLE DR 40 MG TABLET PO (19:46)
[2022-02-12] MEDS: POTASSIUM CHLORIDE 20 MEQ TAB 40 MEQ PO (19:46)
[2022-02-12] MEDS: SENNOSIDES 8.6 MG TABLET PO (22:21)
[2022-02-13] MEDS: HYDROMORPHONE 0.5 MG INJ 0.25 MG IV (00:23)
[2022-02-13 02:40] LABS: UR Morphine/Opiate cutoff 300 Negative (Negative); Ur Creatinine 20 (Normal); Urine Amphetamines Negative (Negative); Urine Barbiturates Negative (Negative); Urine Benzodiazepines Negative (Negative); Urine Cocaine Negative (Negative); Urine MDMA Negative (Negative); Urine Methadone Negative (Negative); Urine Methamphetamines Positive (Negative); Urine Oxycodone Negative (Negative); Urine Phencyclidine Negative (Negative); Urine Tetrahydrocannabinol Negative (Negative); Urine Tricyclic Antidepressant Negative (Negative); Urine pH 5 (Normal)
[2022-02-13 03:40] VITALS: BP 105/60; PULSE 87; RESP 22; TEMP 36.8; O2SAT 97
[2022-02-13] MEDS: SODIUM CHLORIDE 0.9% 1,000 ML 125 ML IV ×2 (04:05→14:33)
[2022-02-13] MEDS: PANTOPRAZOLE DR 40 MG TABLET PO (06:02)
[2022-02-13 06:30] LABS: Add Manual Diff / Slide Review NO; Basophils Absolute Auto 0 /uL (0-100); Basophils Percent Auto 0.7 % (0-2); Eosinophils Absolute Auto 0 /uL (0-450); Eosinophils Percent Auto 1.1 % (2-4); Hematocrit 26.9 % (41-53); Hemoglobin 9.2 g/dL (13.5-17.5); Lymphocytes Absolute Auto 800 /uL (1100-4500); Lymphocytes Percent Auto 33.8 % (25-40); Mean Corpuscular HGB Conc 34.4 % (30-36); Mean Corpuscular Hemoglobin 30.9 PG (26-34); Mean Corpuscular Volume 90.1 fL (80-100); Monocytes Absolute Auto 200 /uL (0-900); Monocytes Percent Auto 9.5 % (3-14); Neutrophils Absolute Auto 1300 /uL (1500-7000); Neutrophils Percent Auto 54.9 % (50-75); Platelet Count 60 X10^3/uL (150-400); Red Blood Cell Count 2.99 X10^6/uL (4.5-5.9); Red Cell Distribution Width 16.7 % (11.6-14.8); White Blood Cell Count 2.4 X10^3/uL (4.5-11.0)
[2022-02-13 06:31] LABS: BUN Creatinine Ratio 18.9 (6-22); Blood Urea Nitrogen 14 mg/dL (9-20); Calcium 6.8 mg/dL (8.4-10.2); Carbon Dioxide 21 mmol/L (22-32); Chloride 114 mmol/L (98-107); Estimated Glomerular Filt Rate > 60 mL/min (>60); Glucose 79 mg/dL (80-110); HEMOLYSIS < 15 (0-50); Potassium 3.6 mmol/L (3.4-5.1); Sodium 141 mmol/L (137-145)
[2022-02-13 06:40] LABS: Lipase 425 U/L (23-300)
--- NOTE | 2022-02-13 07:39 | PM.PN.1 ---
Subjective Subjective Date Patient Seen: 02/13/22 Interval history: Patient febrile to 100.4F at noon today. He has no complaints. PT eval rec SNF. Exam Vital Signs (past 8 hours): - 02/13/22 03:40 Temperature 98.3 F Pulse Rate 87 Respiratory Rate 22 Blood Pressure 105/60 Pulse Oximetry 97 Oxygen Flow Rate 0 Oxygen Delivery Method Room Air Oxygen Flow Rate 0 Narrative Exam Narrative: GEN: no acute distress, cachectic male, very hard of hearing HEENT: moist mucous membranes, PERRL NECK: trachea midline, no JVD CV: regular rate and rhythm, no murmurs PULM: clear bilaterally ABD: firm, mildly tender, evidence caput madusae on abdomen EXT: warm and well perfused with no edema NEURO: awake, alert, oriented, no focal deficits Objective Labs Result Diagrams: 02/13/22 05:55 02/13/22 05:55 Labs: Laboratory Results - last 24 hr 02/12/22 02/12/22 02/12/22 14:31 14:31 14:31 WBC 3.9 L RBC 2.99 L Hgb 9.2 L Hct 27.0 L MCV 90.5 MCH 30.8 MCHC 34.0 RDW 16.7 H Plt Count 85 L Neut % (Auto) 57.3 Lymph % (Auto) 31.9 [place] % (Auto) 9.0 Eos % (Auto) 0.9 L Baso % (Auto) 0.9 Neut # (Auto) 2300 Lymph # (Auto) 1300 [place] # (Auto) 400 Eos # (Auto) 0 Baso # (Auto) 0 ESR 64 H PT 15.5 H INR 1.3 APTT 28 Sodium 139 Potassium 3.4 Chloride 108 H Carbon Dioxide 23 BUN 15 Creatinine 0.75 Estimated GFR > 60 BUN/Creatinine Ratio 20.0 Glucose 84 Lactate Calcium 7.2 L Magnesium 1.8 Total Bilirubin 0.5 AST 32 ALT 17 Alkaline Phosphatase 191 H Total Creatine Kinase 41 L CK-MB (CK-2) TNP CK-MB (CK-2) Rel Index TNP Troponin I < 0.012 C-Reactive Protein 1.0 NT-Pro-B Natriuret Pep 148 H Total Protein 7.0 Albumin 2.5 L Globulin 4.5 H Albumin/Globulin Ratio 0.6 L Lipase 522 H Procalcitonin TSH Urine Color Urine Appearance Urine pH Ur Specific [place] Urine Protein Urine Glucose (UA) Urine Ketones Urine Occult Blood Urine Nitrate Urine Bilirubin Ur Bilirubin Confirm Urine Urobilinogen Ur Leukocyte Esterase Urine RBC Urine WBC Ur Squamous Epith Cells Ur Transition Epith Cell Ur Renal Epithelial Cell Calcium Oxalate Crystal Uric Acid Crystals Triple Phos Crystals Other Crystals Amorphous Sediment Urine Bacteria Hyaline Casts Granular Casts RBC Casts WBC Casts Other Casts Urine Mucus Urine Trichomonas Urine Yeast Urine Sperm Ur Culture Indicated? Micro UA Comment U Opiates 300ng/mL cut Ur Oxycodone Screen Urine Methadone Screen Ur Barbiturates Screen U Tricyclic Antidepress Ur Phencyclidine Scrn Ur Amphetamines Screen U Methamphetamines Scrn Ur MDMA Scrn (Ecstasy) U Benzodiazepines Scrn Urine Cocaine Screen U Marijuana (THC) Screen Ethyl Alcohol SARS-CoV-2 (PCR) 02/12/22 02/12/22 02/12/22 14:31 14:31 14:31 WBC RBC Hgb Hct MCV MCH MCHC RDW Plt Count Neut % (Auto) Lymph % (Auto) [place] % (Auto) Eos % (Auto) Baso % (Auto) Neut # (Auto) Lymph # (Auto) [place] # (Auto) Eos # (Auto) Baso # (Auto) ESR PT INR APTT Sodium Potassium Chloride Carbon Dioxide BUN Creatinine Estimated GFR BUN/Creatinine Ratio Glucose Lactate 2.3 H Calcium Magnesium Total Bilirubin AST ALT Alkaline Phosphatase Total Creatine Kinase CK-MB (CK-2) CK-MB (CK-2) Rel Index Troponin I C-Reactive Protein NT-Pro-B Natriuret Pep Total Protein Albumin Globulin Albumin/Globulin Ratio Lipase Procalcitonin 0.13 TSH 3.38 Urine Color Urine Appearance Urine pH Ur Specific [place] Urine Protein Urine Glucose (UA) Urine Ketones Urine Occult Blood Urine Nitrate Urine Bilirubin Ur Bilirubin Confirm Urine Urobilinogen Ur Leukocyte Esterase Urine RBC Urine WBC Ur Squamous Epith Cells Ur Transition Epith Cell Ur Renal Epithelial Cell Calcium Oxalate Crystal Uric Acid Crystals Triple Phos Crystals Other Crystals Amorphous Sediment Urine Bacteria Hyaline Casts Granular Casts RBC Casts WBC Casts Other Casts Urine Mucus Urine Trichomonas Urine Yeast Urine Sperm Ur Culture Indicated? Micro UA Comment U Opiates 300ng/mL cut Ur Oxycodone Screen Urine Methadone Screen Ur Barbiturates Screen U Tricyclic Antidepress Ur Phencyclidine Scrn Ur Amphetamines Screen U Methamphetamines Scrn Ur MDMA Scrn (Ecstasy) U Benzodiazepines Scrn Urine Cocaine Screen U Marijuana (THC) Screen Ethyl Alcohol SARS-CoV-2 (PCR) 02/12/22 02/12/22 02/12/22 14:31 15:46 15:46 WBC RBC Hgb Hct MCV MCH MCHC RDW Plt Count Neut % (Auto) Lymph % (Auto) [place] % (Auto) Eos % (Auto) Baso % (Auto) Neut # (Auto) Lymph # (Auto) [place] # (Auto) Eos # (Auto) Baso # (Auto) ESR PT INR APTT Sodium Potassium Chloride Carbon Dioxide BUN Creatinine Estimated GFR BUN/Creatinine Ratio Glucose Lactate Calcium Magnesium Total Bilirubin AST ALT Alkaline Phosphatase Total Creatine Kinase CK-MB (CK-2) CK-MB (CK-2) Rel Index Troponin I C-Reactive Protein NT-Pro-B Natriuret Pep Total Protein Albumin Globulin Albumin/Globulin Ratio Lipase Procalcitonin TSH Urine Color Cancelled Urine Appearance Cancelled Urine pH Cancelled Ur Specific [place] Cancelled Urine Protein Cancelled Urine Glucose (UA) Cancelled Urine Ketones Cancelled Urine Occult Blood Cancelled Urine Nitrate Cancelled Urine Bilirubin Cancelled Ur Bilirubin Confirm Urine Urobilinogen Cancelled Ur Leukocyte Esterase Cancelled Urine RBC Cancelled 30-100/hpf H Urine WBC Cancelled 5-10/hpf H Ur Squamous Epith Cells Cancelled Ur Transition Epith Cell Cancelled Ur Renal Epithelial Cell Cancelled Calcium Oxalate Crystal Cancelled Uric Acid Crystals Cancelled Triple Phos Crystals Cancelled Other Crystals Cancelled Amorphous Sediment Cancelled Urine Bacteria Cancelled Many (>30) H Hyaline Casts Cancelled Granular Casts Cancelled RBC Casts Cancelled WBC Casts Cancelled Other Casts Cancelled Urine Mucus Cancelled Urine Trichomonas Cancelled Urine Yeast Cancelled Urine Sperm Cancelled Ur Culture Indicated? Cancelled Micro UA Comment Cancelled U Opiates 300ng/mL cut Ur Oxycodone Screen Urine Methadone Screen Ur Barbiturates Screen U Tricyclic Antidepress Ur Phencyclidine Scrn Ur Amphetamines Screen U Methamphetamines Scrn Ur MDMA Scrn (Ecstasy) U Benzodiazepines Scrn Urine Cocaine Screen U Marijuana (THC) Screen Ethyl Alcohol < 10 SARS-CoV-2 (PCR) 02/12/22 02/12/22 02/12/22 15:46 15:46 15:46 WBC RBC Hgb Hct MCV MCH MCHC RDW Plt Count Neut % (Auto) Lymph % (Auto) [place] % (Auto) Eos % (Auto) Baso % (Auto) Neut # (Auto) Lymph # (Auto) [place] # (Auto) Eos # (Auto) Baso # (Auto) ESR PT INR APTT Sodium Potassium Chloride Carbon Dioxide BUN Creatinine Estimated GFR BUN/Creatinine Ratio Glucose Lactate Calcium Magnesium Total Bilirubin AST ALT Alkaline Phosphatase Total Creatine Kinase CK-MB (CK-2) CK-MB (CK-2) Rel Index Troponin I C-Reactive Protein NT-Pro-B Natriuret Pep Total Protein Albumin Globulin Albumin/Globulin Ratio Lipase Procalcitonin TSH Urine Color Cancelled Urine Appearance Cancelled Urine pH Cancelled Ur Specific [place] Cancelled Urine Protein Cancelled Urine Glucose (UA) Cancelled Urine Ketones Cancelled Urine Occult Blood Cancelled Urine Nitrate Cancelled Urine Bilirubin Cancelled Ur Bilirubin Confirm Negative Urine Urobilinogen Cancelled Ur Leukocyte Esterase Cancelled Urine RBC Cancelled Urine WBC Cancelled Ur Squamous Epith Cells Cancelled Ur Transition Epith Cell Cancelled Ur Renal Epithelial Cell Cancelled Calcium Oxalate Crystal Cancelled Uric Acid Crystals Cancelled Triple Phos Crystals Cancelled Other Crystals Cancelled Amorphous Sediment Cancelled Urine Bacteria Cancelled Hyaline Casts Cancelled Granular Casts Cancelled RBC Casts Cancelled WBC Casts Cancelled Other Casts Cancelled Urine Mucus Cancelled Urine Trichomonas Cancelled Urine Yeast Cancelled Urine Sperm Cancelled Ur Culture Indicated? Cancelled Micro UA Comment Cancelled U Opiates 300ng/mL cut Negative Ur Oxycodone Screen Negative Urine Methadone Screen Negative Ur Barbiturates Screen Negative U Tricyclic Antidepress Negative Ur Phencyclidine Scrn Negative Ur Amphetamines Screen Negative U Methamphetamines Scrn Positive H Ur MDMA Scrn (Ecstasy) Negative U Benzodiazepines Scrn Negative Urine Cocaine Screen Negative U Marijuana (THC) Screen Negative Ethyl Alcohol SARS-CoV-2 (PCR) 02/12/22 02/12/22 02/13/22 16:11 16:40 05:55 WBC 2.4 L RBC 2.99 L Hgb 9.2 L Hct 26.9 L MCV 90.1 MCH 30.9 MCHC 34.4 RDW 16.7 H Plt Count 60 L Neut % (Auto) 54.9 Lymph % (Auto) 33.8 [place] % (Auto) 9.5 Eos % (Auto) 1.1 L Baso % (Auto) 0.7 Neut # (Auto) 1300 L Lymph # (Auto) 800 L [place] # (Auto) 200 Eos # (Auto) 0 Baso # (Auto) 0 ESR PT INR APTT Sodium Potassium Chloride Carbon Dioxide BUN Creatinine Estimated GFR BUN/Creatinine Ratio Glucose Lactate 1.3 Calcium Magnesium Total Bilirubin AST ALT Alkaline Phosphatase Total Creatine Kinase CK-MB (CK-2) CK-MB (CK-2) Rel Index Troponin I C-Reactive Protein NT-Pro-B Natriuret Pep Total Protein Albumin Globulin Albumin/Globulin Ratio Lipase Procalcitonin TSH Urine Color Urine Appearance Urine pH Ur Specific [place] Urine Protein Urine Glucose (UA) Urine Ketones Urine Occult Blood Urine Nitrate Urine Bilirubin Ur Bilirubin Confirm Urine Urobilinogen Ur Leukocyte Esterase Urine RBC Urine WBC Ur Squamous Epith Cells Ur Transition Epith Cell Ur Renal Epithelial Cell Calcium Oxalate Crystal Uric Acid Crystals Triple Phos Crystals Other Crystals Amorphous Sediment Urine Bacteria Hyaline Casts Granular Casts RBC Casts WBC Casts Other Casts Urine Mucus Urine Trichomonas Urine Yeast Urine Sperm Ur Culture Indicated? Micro UA Comment U Opiates 300ng/mL cut Ur Oxycodone Screen Urine Methadone Screen Ur Barbiturates Screen U Tricyclic Antidepress Ur Phencyclidine Scrn Ur Amphetamines Screen U Methamphetamines Scrn Ur MDMA Scrn (Ecstasy) U Benzodiazepines Scrn Urine Cocaine Screen U Marijuana (THC) Screen Ethyl Alcohol SARS-CoV-2 (PCR) Positive H 02/13/22 02/13/22 05:55 05:55 WBC RBC Hgb Hct MCV MCH MCHC RDW Plt Count Neut % (Auto) Lymph % (Auto) [place] % (Auto) Eos % (Auto) Baso % (Auto) Neut # (Auto) Lymph # (Auto) [place] # (Auto) Eos # (Auto) Baso # (Auto) ESR PT INR APTT Sodium 141 Potassium 3.6 Chloride 114 H Carbon Dioxide 21 L BUN 14 Creatinine 0.74 Estimated GFR > 60 BUN/Creatinine Ratio 18.9 Glucose 79 L Lactate Calcium 6.8 L Magnesium Total Bilirubin AST ALT Alkaline Phosphatase Total Creatine Kinase CK-MB (CK-2) CK-MB (CK-2) Rel Index Troponin I C-Reactive Protein NT-Pro-B Natriuret Pep Total Protein Albumin Globulin Albumin/Globulin Ratio Lipase 425 H Procalcitonin TSH Urine Color Urine Appearance Urine pH Ur Specific [place] Urine Protein Urine Glucose (UA) Urine Ketones Urine Occult Blood Urine Nitrate Urine Bilirubin Ur Bilirubin Confirm Urine Urobilinogen Ur Leukocyte Esterase Urine RBC Urine WBC Ur Squamous Epith Cells Ur Transition Epith Cell Ur Renal Epithelial Cell Calcium Oxalate Crystal Uric Acid Crystals Triple Phos Crystals Other Crystals Amorphous Sediment Urine Bacteria Hyaline Casts Granular Casts RBC Casts WBC Casts Other Casts Urine Mucus Urine Trichomonas Urine Yeast Urine Sperm Ur Culture Indicated? Micro UA Comment U Opiates 300ng/mL cut Ur Oxycodone Screen Urine Methadone Screen Ur Barbiturates Screen U Tricyclic Antidepress Ur Phencyclidine Scrn Ur Amphetamines Screen U Methamphetamines Scrn Ur MDMA Scrn (Ecstasy) U Benzodiazepines Scrn Urine Cocaine Screen U Marijuana (THC) Screen Ethyl Alcohol SARS-CoV-2 (PCR) [facility] Social History household members: friend(s) Smoking Status: Former smoker alcohol intake: former Assessment & Plan Assessment & Plan narrative: # failure to thrive # unsafe living environment -patient apparently not caring for himself and house is in disarray -brought in covered in urine and feces -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 -PT eval recommending SNF # generalized abd pain, improving -patient says he has pain from acid reflux -start protonix po daily # UTI -pyuria on UA, culture with >100k GNB -continue rocephin 1g daily x5 days # COVID positive -tested positive in ED, no current resp symptoms and on room air so will not treat -isolation precautions -fever on 02/13 to 100.4F likely due to COVID # cirrhosis with ascites and portal HTN # 1.8cm hepatic density concerning for HCC -seen on CT abd pelvis, pt notes he previously drank alcohol heavily so likely cause of cirrhosis -AFP pending, ethanol level normal #pancytopenia -WBC 2.4, Hgb 9.2 and platelets 85, unclear cause but could be due to cirrhosis and portal HTN causing splenomegaly -will avoid lovenox/heparin as platelets <100k -monitor for bleeding -check B12/folate # hypokalemia -K 3.4 on admission -replete and monitor # constipation -scheduled laxatives # Severe chronic protein calorie malnutrition r/t limited ability to cook, predicted inadequate PO, and poor dentition aeb BMI low for age (<21) and physical signs of wasting per physical exam. The patient is at much higher risk for medical and surgical complications because of his malnutrition. This increases the difficulty and complexity of medical and surgical interventions and increases the chances of poor outcomes such as morbidity and mortality. Code status is full code. COVID positive. DVT prophylaxis with SCD's. Patient has no proxy. I have reviewed home meds and used all available resources to reconcile the home meds. This patient will be admitted as obs and will require less than 2 midnights of hospital time to treat UTI, failure to thrive. Time Spent With Patient Critical Care time: I spent a total of [] minutes of critical care time on this patient's care today; this time is exclusive of procedural time. Quality VTE Deep Vein Thrombosis/Pulmonary Embolism Present on Admission: No
[2022-02-13] MEDS: cefTRIAXone 1,000 MG in SODIUM CHLORIDE 0.9% 100 ML 200 MG IV (08:56)
--- NOTE | 2022-02-13 09:20 | PC.NURSE ---
Pt is extremely [place]. Communication is assisted with agrease board. Pt is able to make his needs knonw and is cooperative and helpful with turns and daily cares. Meds and care continues as ordered.
--- NOTE | 2022-02-13 11:24 | DIET.CONS ---
Dietary Consultation Note Admission Date: 02/12/2022 17:34 Assessment: 71 y/o M admitted covid+ with FTT, cirrhosis, hypokalemia, and normocytic anemia with h/o ETOH abuse. Toxicology + for methamphetamines. BMI low especially for age (<21 for adult over 65 y/o)-- severe. Hospitalist endorses significant muscle and fat wasting, including temporal wasting, protruding clavicle, orbital hollowed, and square shoulders-- severe. Per notes, pt is mostly bed bound with friends providing food and cooking. Due to Covid+, RD tried calling pt to further assess. No answer. pt is hard of hearing. Per nursing, they are using an [employer] board for communication. RN states he has poor dentition and unable to chew foods easily. No weight hx in EMR. Ht: 185.42 cm Wt: 61.5 kg BMI: 17.9 Last BM: 02/13/22 (02/13/22 01:00) MNA: 5 Prasanna Score: 14 Diet: 02/12/22 Dinner Regular [General (Regular) Diet] Diet Modifications: Labs: RBC 2.99 X10^6/uL (4.5-5.9) L 02/13/22 05:55 Hgb 9.2 g/dL (13.5-17.5) L 02/13/22 05:55 Hct 26.9 % (41-53) L 02/13/22 05:55 Creatinine 0.74 mg/dL (0.66-1.25) 02/13/22 05:55 Lactate 1.3 mmol/L (0.7-2.1) 02/12/22 16:40 NT-Pro-B Natriuret Pep 148 pg/mL (<125) H 02/12/22 14:31 Nutrition Diagnosis: Severe chronic protein calorie malnutrition r/t limited ability to cook, predicted inadequate PO, and poor dentition aeb BMI low for age (<21) and physical signs of wasting per physical exam. The patient is at much higher risk for medical and surgical complications because of his malnutrition.? This increases the difficulty and complexity of medical and surgical interventions and increases the chances of poor outcomes such as morbidity and mortality. Interventions: 1. high kcal ONS BID 2. coordinate with kitchen easy chew textures EER: 2498-6303 kcals per day (35-40kcal/kg per BMI 110-120g PRO (1.8-2g/kg per malnutrition) Monitoring/Evaluations: ONS tolerance, weights, and PO. RD follow-up in 3 days Electronically Signed by: Madnie Rene 02/13/22 11:24 Clinical Dietitian [address] [id number]
--- NOTE | 2022-02-13 11:45 | PT.IIE ---
Physical Therapy Inpatient Evaluation/Re-Eval M1 PT/OT-IP Prior Functional Status Start: 02/13/22 13:28 Freq: NEEDED Status: Active Protocol: Document 02/13/22 11:45 AB (Rec: 02/13/22 13:46 AB [email or web address]) Medical Review Prior Functional Status Medical History Reviewed Yes Communication with confusion and hard to understand verbage, very MOHEGAN Mobility and Gait unable to obtain PLOF and home set up due to pt's cognitive level, very MOHEGAN and hard to understand verbage Social History Additional Social History Comment pt is not very clear with information but stated that he lives alone but has somebody that does his groceries M2 PT-IP Current Condition Start: 02/13/22 13:28 Freq: NEEDED Status: Active Protocol: Document 02/13/22 11:45 AB (Rec: 02/13/22 13:46 AB [email or web address]) Physical Therapy Current Condition Current Condition Evaluation Date 02/13/22 Treatment Diagnosis pancreatitis; UTI; Covid; difficulty in walking Onset Date 02/12/22 M3 PT-IP Subjective Start: 02/13/22 13:28 Freq: NEEDED Status: Active Protocol: Document 02/13/22 11:45 AB (Rec: 02/13/22 13:46 AB [email or web address]) Subjective Physical Therapy Visit Type Type Initial Evaluation Visit Start Time 11:45 Visit Stop Time 12:45 Total Visit Minutes 60 Number of VALVE GRINDER Visits 0 Physical Therapy Visit Comments Patient Comments pt moans and groans and when ask why, he said he does not know Therapy Pain Assessment Pain When Pain Assessed During Mobility Location Generalized Scale Used pain scale not stated; mainly his LE due to arthritis per pt M4 PT-IP Mobility and Gait Start: 02/13/22 13:28 Freq: NEEDED Status: Active Protocol: Document 02/13/22 11:45 AB (Rec: 02/13/22 13:46 AB [email or web address]) PT-Bed Mobility Assessment Rolling Type of Rolling Log Rolling Level of Assist Maximal Assistance,1 Person Assistance Supine to Sit Supine to Sit Total Assistance,2 Person Assistance,Head of Bed Elevated,Bedrails Sit to Supine Sit to Supine Total Assistance,2 Person Assistance Scooting Scooting to Edge of Bed Dependent Scooting Up and Down in Bed Dependent PT-Transfer Assessment Sit to and From Stand Sit to and from Stand Maximum Assistance,2 Person Assistance,Use of Upper Extremities Equipment Transfer Assistive Device Front Wheeled Walker Orthotic/Prosthetic Devices or Brace: No Comments Mobility Comments O2 sat: 98-100% MS: 86 unable to obtain BP due to pt's excessive motion. pt is very restless, moan and groans but does not actually state that he feels. NAC in room to assist. pt needs to be cleaned up and brief change. completed rolling L<>R max A and max cues. pt is very MOHEGAN, used white board to communicate with pt. pt completed supine to sit total A x 2 and max cues. able to sit on EOB min A. LE in adduction and with B knee flexion contractures. completed sit to stand max A x 2 and max cues. repeated x 2 and pt only tolerated ~ 5 -7 sec of standing. unable to complete a pivot transfer. assisted back to bed total A x 2 and max cues. positioned in bed total A x 2 and max cues. positioned in bed. call light and table placed within reach. PT-Balance Assessment Sitting Balance and Reactions Static Sitting Balance Ability Fair Dynamic Sitting Balance Ability Poor Standing Balance and Reactions Static Standing Balance Ability Poor Dynamic Standing Balance Ability Poor Device Used FWW M5 PT-IP Objective Assessments Start: 02/13/22 13:28 Freq: NEEDED Status: Active Protocol: Document 02/13/22 11:45 AB (Rec: 02/13/22 13:46 AB [email or web address]) Orientation Orientation/Cognition Level of Alertness Confusional State Orientation Name Language Function Ability Hard of Hearing Safety Awareness Decreased Safety Awareness Memory Description Short Term 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 Muscle Tone Muscle Tone WNL Yes M6 PT-IP Treatment Start: 02/13/22 13:28 Freq: NEEDED Status: Active Protocol: Document 02/13/22 11:45 AB (Rec: 02/13/22 13:46 AB [email or web address]) Physical Therapy Treatment Education Education Provided Safety M7 PT-IP Assessment and Plan Start: 02/13/22 13:28 Freq: NEEDED Status: Active Protocol: Document 02/13/22 11:45 AB (Rec: 02/13/22 13:46 AB [email or web address]) PT Summary Assessment and Plan Potential Rehabilitation Potential Fair Status of Condition at Evaluation Evolving Summary Impairments Pain,ROM,Strength,Balance, Coordination,Sensation,Tone, Cognition,Bed Mobility, Transfers,Gait,Activity Tolerance Assessment Summary pt requiring total A x 2 and max cues. Has (+) B knee contractures affecting mobility. pt also has decrease cognitive level affecting following directions and safety awareness. pt will require SNF rehab but eventually needs LTC. will continue to assess. Goals Bed Mobility Goal Moderate Assistance Transfer Goal Moderate Assistance,Front Wheeled Walker Gait Goal Moderate Assistance,Front Wheel Walker Gait Distance 20 Days to Meet Goals 10 Frequency of Treatment Frequency Of Treatment Once a Day Treatment Plan Physical Therapy Treatment Plan Bed Mobility Training,Transfer Training,Gait Training, Therapeutic Exercise,Balance Retraining,Discharge Planning, Hot or Cold Pack,Neuromuscular Re-ed,Coordination Retraining ,Manual Therapy Precautions Other Precautions Covid; falls Recommendations To Nursing Amount of Assist Needed Mechanical Lift Discharge Recommendations PT Discharge Recommendations SNF Rehab Transportation Needs at Discharge Wheelchair/Cabulance,Stretcher /Ambulance
[2022-02-13 12:00] VITALS: BP 136/94; PULSE 91; RESP 20; TEMP 38; O2SAT 99
[2022-02-13 18:00] VITALS: BP 114/65; PULSE 92; RESP 18; TEMP 37.8; O2SAT 98
[2022-02-13 19:06] LABS: Folate 7.5 ng/mL (2.76-20.0); Vitamin B12 Reflex MMA if <400 680 pg/mL (239-931)
--- NOTE | 2022-02-13 19:44 | OT.IPNOTE ---
Unable to see pt for OT eval as at meal time and high census load.
[2022-02-13] MEDS: MELATONIN 3 MG TABLET 6 MG PO (22:04)
[2022-02-13] MEDS: SENNOSIDES 8.6 MG TABLET PO (22:04)
[2022-02-13 22:38] VITALS: BP 111/58; PULSE 86; RESP 18; TEMP 37.6; O2SAT 97
[2022-02-14 03:17] VITALS: BP 91/59; PULSE 81; RESP 18; TEMP 37.1; O2SAT 96
[2022-02-14] MEDS: PANTOPRAZOLE DR 40 MG TABLET PO (06:12)
[2022-02-14 07:17] LABS: Hematocrit 25.4 % (41-53); Hemoglobin 8.7 g/dL (13.5-17.5); Mean Corpuscular HGB Conc 34.1 % (30-36); Mean Corpuscular Hemoglobin 30.8 PG (26-34); Mean Corpuscular Volume 90.2 fL (80-100); Platelet Count 54 X10^3/uL (150-400); Red Blood Cell Count 2.81 X10^6/uL (4.5-5.9); Red Cell Distribution Width 16.3 % (11.6-14.8)
[2022-02-14 07:22] LABS: Add Manual Diff / Slide Review YES; White Blood Cell Count 1.5 X10^3/uL (4.5-11.0)
[2022-02-14 07:27] LABS: BUN Creatinine Ratio 18.4 (6-22); Blood Urea Nitrogen 14 mg/dL (9-20); Calcium 6.8 mg/dL (8.4-10.2); Carbon Dioxide 20 mmol/L (22-32); Chloride 112 mmol/L (98-107); Estimated Glomerular Filt Rate > 60 mL/min (>60); Glucose 115 mg/dL (80-110); HEMOLYSIS < 15 (0-50); Potassium 3.5 mmol/L (3.4-5.1); Sodium 138 mmol/L (137-145)
[2022-02-14 07:40] LABS: Alpha Fetoprotein 3.7 ng/mL (0.0-8.4)
[2022-02-14 07:47] LABS: Anisocytosis 1+; Neutrophils Absolute Manual 660 /uL (3000-5900); Total Cells Counted 50
--- NOTE | 2022-02-14 09:15 | PT.IPTN ---
Current Diagnoses COVID-19 (02/13/22) Physical Therapy Treatment Note M2 PT-IP Current Condition Start: 02/13/22 13:28 Freq: NEEDED Status: Active Protocol: Document 02/13/22 11:45 AB (Rec: 02/13/22 13:46 AB [id number]) Physical Therapy Current Condition Current Condition Evaluation Date 02/13/22 Treatment Diagnosis pancreatitis; UTI; Covid; difficulty in walking Onset Date 02/12/22 M3 PT-IP Subjective Start: 02/13/22 13:28 Freq: NEEDED Status: Active Protocol: Document 02/14/22 09:15 AB (Rec: 02/14/22 12:33 AB [email or web address]) Subjective Physical Therapy Visit Type Type Treatment Note Visit Start Time 09:15 Visit Stop Time 09:55 Total Visit Minutes 40 Number of SOLAR PROJECT COORDINATION SPECIALIST Visits 0 Therapy Pain Assessment Pain When Pain Assessed During Mobility Location Bilateral Leg Scale Used pain scale not stated Pain Behaviors Calling Out,Facial Grimacing, Guarding,Moaning,Restlessness, Wincing Pain Management Techniques Distraction,Modification of Treatment,Re-positioning M4 PT-IP Mobility and Gait Start: 02/13/22 13:28 Freq: NEEDED Status: Active Protocol: Document 02/14/22 09:15 AB (Rec: 02/14/22 12:33 AB [id number]) PT-Bed Mobility Assessment Supine to Sit Supine to Sit Maximum Assistance,1 Person Assistance,2 Person Assistance ,Head of Bed Elevated Sit to Supine Sit to Supine Total Assistance,2 Person Assistance,Bedrails PT-Transfer Assessment Sit to and From Stand Sit to and from Stand Maximum Assistance,2 Person Assistance,Use of Upper Extremities Equipment Transfer Assistive Device Gait Belt,Front Wheeled Walker Orthotic/Prosthetic Devices or Brace: No Comments Mobility Comments used white board to communicate with pt due to WALES . pt moans and groans throughout tx session but when asked why, cannot really say why. pt also stated that he cannot get up due to BLE pain and has been stated that it has been bent for a while. informed pt that he has to try to move and pt agreed. completed supine to sit max A x 1-2 and max cues. able to sit on EOB mod to max A. completed sit to stand max Ax 2 and max cues and repeated x 2. unable to stand fully upright due to B knee contractures. assisted pt back to bed. total Ax 2 and max cues. pt needs to be cleaned up and changed. max A for rolling L<>R and NAC assist pt with toileting needs . positioned pt in bed. Left pt with NAC and nurse. M5 PT-IP Objective Assessments Start: 02/13/22 13:28 Freq: NEEDED Status: Active Protocol: Document 02/13/22 11:45 AB (Rec: 02/13/22 13:46 AB [id number]) Orientation Orientation/Cognition Level of Alertness Confusional State Orientation Name Language Function Ability Hard of Hearing Safety Awareness Decreased Safety Awareness Memory Description Short Term Impaired,Usp Impaired Gross Range of Motion Lower Extremity ROM Assessment Bilaterally Impaired Impairments R knee flexion contracture: ~ 20 deg PROM L knee flexion contractre: ~ 30 deg PROM Strength Lower Extremity Strength Assessment Bilaterally Impaired Comments Strength Comments pt unable to following directions to complete MMT but unable to move LE to EOB during bed mobility requiring max A and max cues. Muscle Tone Muscle Tone WNL Yes M6 PT-IP Treatment Start: 02/13/22 13:28 Freq: NEEDED Status: Active Protocol: Document 02/14/22 09:15 AB (Rec: 02/14/22 12:33 AB [email or web address]) Physical Therapy Treatment Education Education Provided Safety M7 PT-IP Assessment and Plan Start: 02/13/22 13:28 Freq: NEEDED Status: Active Protocol: Document 02/14/22 09:15 AB (Rec: 02/14/22 12:33 AB [email or web address]) PT Summary Assessment and Plan Potential Rehabilitation Potential Fair Summary Impairments Pain,ROM,Strength,Balance, Coordination,Sensation,Tone, Cognition,Bed Mobility, Transfers,Gait,Activity Tolerance Progress Towards Goals Slow Progress due to Pain,Slow Progress due to Medical Issues,Slow Progress due to Activity Tolerance Assessment Summary pt requiring max A x 2 to total A x 2 with mobility and will require SNF rehab to improve strength and function. will continue to assess progress. Goals Bed Mobility Goal Moderate Assistance Transfer Goal Moderate Assistance,Front Wheeled Walker Gait Goal Moderate Assistance,Front Wheel Walker Gait Distance 20 Days to Meet Goals 10 Frequency of Treatment Frequency Of Treatment Once a Day Treatment Plan Physical Therapy Treatment Plan Bed Mobility Training,Transfer Training,Gait Training, Therapeutic Exercise,Balance Retraining,Discharge Planning, Hot or Cold Pack,Neuromuscular Re-ed,Coordination Retraining ,Manual Therapy Precautions Other Precautions Covid; falls Recommendations To Nursing Amount of Assist Needed Mechanical Lift Discharge Recommendations PT Discharge Recommendations SNF Rehab Transportation Needs at Discharge Wheelchair/Cabulance,Stretcher /Ambulance
[2022-02-14] MEDS: SENNOSIDES 8.6 MG TABLET PO ×2 (09:33→23:11)
[2022-02-14] MEDS: polyethylene glycoL 3350 17 GM POWD.PACK PO (09:33)
[2022-02-14] MEDS: HYDROMORPHONE 0.5 MG INJ 0.25 MG IV (09:33)
[2022-02-14] MEDS: cefTRIAXone 1,000 MG in SODIUM CHLORIDE 0.9% 100 ML 200 MG IV (09:34)
[2022-02-14 10:00] VITALS: BP 109/65; PULSE 93; RESP 18; TEMP 36.8; O2SAT 95
[2022-02-14 12:00] VITALS: BP 136/68; PULSE 67; RESP 17; TEMP 36.4; O2SAT 96
--- NOTE | 2022-02-14 12:12 | PM.PN.1 ---
Subjective Subjective Date Patient Seen: 02/14/22 Interval history: 71yo M with past medical history of 60 pack year smoker, and previous alcohol abuse who presents to the ED from EMS due to being found in his home covered in stool and urine and his home in disarray. Found to be COVID positive in ED. Patient is very hard of hearing.? Patient complains of cough. He is extremely weak, with bilateral knee flexion contractures, requiring max assist. He complains of generalized pain. He is on antibiotic for UTI. He has dropping blood counts with pancytopenia. Exam Vital Signs (past 8 hours): - 02/14/22 10:00 Temperature 98.2 F Pulse Rate 93 H Respiratory Rate 18 Blood Pressure 109/65 Pulse Oximetry 95 Oxygen Delivery Method Room Air Oxygen Flow Rate 0 Narrative Exam Narrative: General: Alert very hard of hearing cooperative male Lungs: Clear to auscultation Heart: Regular rhythm Abdomen: Severe ascites, liver palpable in right upper quadrant, large abdominal varicose veins noted as well Extremities: No pitting pretibial edema Neurological: Affect okay, speech normal, appears well oriented Objective Labs Result Diagrams: 02/14/22 06:50 02/14/22 06:50 Labs: Laboratory Results - last 24 hr 02/13/22 02/13/22 02/14/22 05:55 17:29 06:50 WBC 1.5 L* RBC 2.81 L Hgb 8.7 L Hct 25.4 L MCV 90.2 MCH 30.8 MCHC 34.1 RDW 16.3 H Plt Count 54 L Neut % (Auto) Not Reportable Lymph % (Auto) Not Reportable [place] % (Auto) Not Reportable Eos % (Auto) Not Reportable Baso % (Auto) Not Reportable Lymph # (Auto) Not Reportable [place] # (Auto) Not Reportable Baso # (Auto) Not Reportable Total Counted 50 Seg Neutrophils % 44.0 Lymphocytes % (Manual) 50.0 H Monocytes % (Manual) 4.0 Basophils % (Manual) 2.0 H Neutrophils # (Manual) 660 L RBC Morphology See below Anisocytosis 1+ H Sodium Potassium Chloride Carbon Dioxide BUN Creatinine Estimated GFR BUN/Creatinine Ratio Glucose Calcium Alpha Fetoprotein 3.7 Vitamin B12 680 Folate 7.5 02/14/22 06:50 WBC RBC Hgb Hct MCV MCH MCHC RDW Plt Count Neut % (Auto) Lymph % (Auto) [place] % (Auto) Eos % (Auto) Baso % (Auto) Lymph # (Auto) [place] # (Auto) Baso # (Auto) Total Counted Seg Neutrophils % Lymphocytes % (Manual) Monocytes % (Manual) Basophils % (Manual) Neutrophils # (Manual) RBC Morphology Anisocytosis Sodium 138 Potassium 3.5 Chloride 112 H Carbon Dioxide 20 L BUN 14 Creatinine 0.76 Estimated GFR > 60 BUN/Creatinine Ratio 18.4 Glucose 115 H Calcium 6.8 L Alpha Fetoprotein Vitamin B12 Folate [facility] Social History household members: friend(s) Smoking Status: Former smoker alcohol intake: former Assessment & Plan Assessment & Plan narrative: # failure to thrive # unsafe living environment -patient apparently not caring for himself and house is in disarray -brought in covered in urine and feces -CELLAR PUMPER consult for dispo planning -PT eval recommending SNF # generalized abd pain, improving -patient says he has pain from acid reflux -on protonix po daily -cannot rule out SBE, consider US guided paracentesis if not improving # UTI, E coli -pyuria on UA, culture with >100k GNB -continue rocephin 1g daily x5 days # COVID positive -tested positive in ED, has dry cough with normal O2 sats -isolation precautions -fever on 02/13 to 100.4F likely due to COVID -manage symptomatically # cirrhosis with ascites and portal HTN # 1.8cm hepatic density concerning for HCC -seen on CT abd pelvis, pt notes he previously drank alcohol heavily so likely cause of cirrhosis -has significant abdominal varices on exam -AFP 3.7 (normal), hepatitis panel pending -check INR for coag status #pancytopenia -initial WBC 2.4, Hgb 9.2 and platelets 85, unclear cause but could be due to cirrhosis and portal HTN causing splenomegaly -avoid lovenox/heparin as platelets <100k -monitor for bleeding -B12 and folate normal -worsening pancytopenia probably due to COVID and cirrhosis # hypokalemia, corrected -K 3.4 on admission -replete and monitor # constipation -scheduled laxatives # Severe chronic protein calorie malnutrition r/t limited ability to cook, predicted inadequate PO, and poor dentition aeb BMI low for age (<21) and physical signs of wasting per physical exam. The patient is at much higher risk for medical and surgical complications because of his malnutrition.? This increases the difficulty and complexity of medical and surgical interventions and increases the chances of poor outcomes such as morbidity and mortality. #generalized pain -musculoskeletal pain with significant bilateral knee contractures in extremeties -use low to moderate dose schedule Tylenol, avoid narcotics due to advanced liver disease DVT prophylaxis: SCDs Time Spent With Patient Critical Care time: I spent a total of [] minutes of critical care time on this patient's care today; this time is exclusive of procedural time. Quality VTE Deep Vein Thrombosis/Pulmonary Embolism Present on Admission: No
[2022-02-14] MEDS: POTASSIUM CHLORIDE 20 MEQ TAB 40 MEQ PO (12:37)
--- NOTE | 2022-02-14 14:47 | CM.DANOTE ---
Initial DCP Assessment Note Pt is a 71 yo male, resident of [place]. patient presents via EMS. Record indicates that patient does not have a phone, has not been taking medications, not able to ambulate and so covered in urine and feces when picked up. APS talked him into coming to be seen d/t complaints of abd pain and constipation. Patient is profoundly weak upon presentation to the ED, had fecal matter caked on clothing and skin, brief taken off patient's body had mold. Patient has multiple sores in various stages of healing to include BLE, hip and penis. report from EMS is that patient is well known to EMS in [place], house is always in disarray and patient is a frequent flyer at [facility]. Patient COVID+ multiple attempts to contact patient by phone in room have failed. Communication difficult since patient is documented as being confused and extremely [place] Patient seen by PT and the recommendation is SNF Payer: [facility] Initial assessment started with information available on the chart. Patient certainly is a failure to thrive at home with self neglectful behaviors Discussion with APS Wednesday. Contacts ? ALISHA Chavez Discharge Planning/Care Management CM Discharge Assessment Start: 02/14/22 14:44 Freq: Status: Active Protocol: Document 02/14/22 14:45 KAYLA (Rec: 02/14/22 14:47 KAYLA [id number]) Discharge Planning Assessment Assigned Director Cpg ALISHA Benson DPOA/Assigned Designee Name No one listed Advance Directives? No History Provided By Medical Record Prior Living Arrangements Mobile home Household Members friend(s) Independent with ADL's No Is patient alert and oriented? No Barriers to Discharge Yes Comment See narrative for discussion re barriers to safe DC home
[2022-02-14 15:49] VITALS: BP 103/59; PULSE 85; RESP 16; TEMP 37.3; O2SAT 94
--- NOTE | 2022-02-14 16:39 | PC.NURSE ---
Spoke to Dr. Long about the pt's pain. She said that she would review his chart and then order something for pain.
[2022-02-14] MEDS: HYDROMORPHONE 2 MG TABLET PO (17:09)
[2022-02-14 18:51] VITALS: BP 110/56; PULSE 85; RESP 16; TEMP 36.7; O2SAT 92
[2022-02-14 23:00] VITALS: BP 104/59; PULSE 86; RESP 18; TEMP 37.3; O2SAT 95
[2022-02-15] MEDS: MELATONIN 3 MG TABLET 6 MG PO (02:33)
[2022-02-15 03:38] VITALS: BP 108/71; PULSE 77; RESP 16; TEMP 36.9; O2SAT 96
[2022-02-15] MEDS: PANTOPRAZOLE DR 40 MG TABLET PO (06:04)
[2022-02-15 06:44] LABS: Hematocrit 25.6 % (41-53); Hemoglobin 8.7 g/dL (13.5-17.5); INR 1.5 (0.9-1.3); Mean Corpuscular HGB Conc 34.2 % (30-36); Mean Corpuscular Hemoglobin 30.5 PG (26-34); Mean Corpuscular Volume 89.2 fL (80-100); Platelet Count 60 X10^3/uL (150-400); Prothrombin Time 16.9 SECONDS (10.1-12.7); Red Blood Cell Count 2.87 X10^6/uL (4.5-5.9); Red Cell Distribution Width 16.7 % (11.6-14.8)
[2022-02-15 06:49] LABS: BUN Creatinine Ratio 25.3 (6-22); Blood Urea Nitrogen 19 mg/dL (9-20); Calcium 6.9 mg/dL (8.4-10.2); Carbon Dioxide 22 mmol/L (22-32); Chloride 110 mmol/L (98-107); Estimated Glomerular Filt Rate > 60 mL/min (>60); Glucose 95 mg/dL (80-110); HEMOLYSIS < 15 (0-50); Potassium 4.2 mmol/L (3.4-5.1); Sodium 136 mmol/L (137-145)
[2022-02-15 06:58] LABS: Add Manual Diff / Slide Review YES; White Blood Cell Count 1.9 X10^3/uL (4.5-11.0)
[2022-02-15 07:20] LABS: Neutrophils Absolute Manual 798 /uL (3000-5900); Total Cells Counted 50
[2022-02-15 07:21] LABS: Anisocytosis 1+
[2022-02-15] MEDS: cefTRIAXone 1,000 MG in SODIUM CHLORIDE 0.9% 100 ML 200 MG IV (09:18)
[2022-02-15] MEDS: SENNOSIDES 8.6 MG TABLET PO (09:20)
[2022-02-15] MEDS: polyethylene glycoL 3350 17 GM POWD.PACK PO (09:20)
--- NOTE | 2022-02-15 11:25 | P.PN_ITS ---
Subjective Subjective Date Patient Seen: 02/15/22 Interval history: He is seen today to follow-up his cirrhosis, COVID infection, severe dishevelment and disorganized living situation. The white blood count has risen from 1.5 up to 1.9. The hemoglobin is stable at 8.7. The BMP is normal. He has quite a rigid abdomen and exhibits tenderness/guarding but otherwise appears quite comfortable. He is generally unresponsive and uncooperative to my attempts to interact with him. Nursing staff report that he had recently said ?just let me sleep, and that appears to be his fixation at the moment. Exam Vital Signs (past 8 hours): - 02/15/22 03:38 Temperature 98.5 F Pulse Rate 77 Respiratory Rate 16 Blood Pressure 108/71 Pulse Oximetry 96 Oxygen Flow Rate 0 Oxygen Delivery Method Room Air Oxygen Flow Rate 0 Narrative Exam Narrative: The patient is avoiding interaction, sleeping and only responds when his abdomen is palpated. Heart is regular rate and rhythm without murmur Lungs are clear to auscultation bilaterally Extremities have 1+ pitting edema with brownish darkened skin on the ankles. Abdomen is moderately distended and rigid consistent with known cirrhosis. His tenderness is definitely a reactive/guarding type tenderness as he appears to have no primary pain. Objective Labs Result Diagrams: 02/15/22 06:30 02/15/22 06:30 Labs: Laboratory Results - last 24 hr 02/15/22 02/15/22 02/15/22 06:30 06:30 06:30 WBC 1.9 L* RBC 2.87 L Hgb 8.7 L Hct 25.6 L MCV 89.2 MCH 30.5 MCHC 34.2 RDW 16.7 H Plt Count 60 L Neut % (Auto) Not Reportable Lymph % (Auto) Not Reportable [place] % (Auto) Not Reportable Eos % (Auto) Not Reportable Baso % (Auto) Not Reportable Lymph # (Auto) Not Reportable [place] # (Auto) Not Reportable Baso # (Auto) Not Reportable Total Counted 50 Seg Neutrophils % 42.0 Lymphocytes % (Manual) 50.0 H Monocytes % (Manual) 8.0 Neutrophils # (Manual) 798 L RBC Morphology See below Anisocytosis 1+ H PT 16.9 H INR 1.5 H Sodium 136 L Potassium 4.2 Chloride 110 H Carbon Dioxide 22 BUN 19 Creatinine 0.75 Estimated GFR > 60 BUN/Creatinine Ratio 25.3 H Glucose 95 Calcium 6.9 L [facility] Social History household members: friend(s) Smoking Status: Former smoker alcohol intake: former Assessment & Plan Assessment & Plan narrative: This is a 71-year-old male brought in for grave disability and found to have COVID along with cirrhosis, ascites and portal hypertension on CT scan. # failure to thrive # unsafe living environment -patient apparently not caring for himself and house is in disarray -brought in covered in urine and feces -CREDIT RISK SPECIALIST consult for dispo planning -PT eval recommending SNF # generalized abd pain, improving -patient says he has pain from acid reflux -on protonix po daily -cannot rule out SBE, consider US guided paracentesis if not improving # UTI, E coli -pyuria on UA, culture with >100k GNB -continue rocephin 1g daily x5 days # COVID positive -tested positive in ED, has dry cough with normal O2 sats -isolation precautions -fever on 02/13 to 100.4F likely due to COVID -manage symptomatically # cirrhosis with ascites and portal HTN # 1.8cm hepatic density concerning for HCC -seen on CT abd pelvis, pt notes he previously drank alcohol heavily so likely cause of cirrhosis -has significant abdominal varices on exam -AFP 3.7 (normal), hepatitis panel pending -check INR for coag status -CMP pending for 02/16 #pancytopenia -initial WBC 2.4, Hgb 9.2 and platelets 85, unclear cause but could be due to cirrhosis and portal HTN causing splenomegaly -WBC 1.9 on 02/15/22 -avoid lovenox/heparin as platelets <100k -monitor for bleeding -B12 and folate normal -worsening pancytopenia probably due to COVID and cirrhosis # hypokalemia, corrected -K 3.4 on admission -replete and monitor # constipation -scheduled laxatives # Severe chronic protein calorie malnutrition r/t limited ability to cook, predicted inadequate PO, and poor dentition aeb BMI low for age (<21) and phys ical signs of wasting per physical exam. The patient is at much higher risk for medical and surgical complications because of his malnutrition.? This increases the difficulty and complexity of medical and surgical interventions and increases the chances of poor outcomes such as morbidity and mortality. #generalized pain -musculoskeletal pain with significant bilateral knee contractures in extremi ties -use low to moderate dose schedule Tylenol, avoid narcotics due to advanced liver disease On 02/15/2022 the patient was unable to cooperate with a discussion about next of kin, backup decision maker, possibility of hospice/palliative care. Time Spent With Patient Critical Care time: I spent a total of [] minutes of critical care time on this patient's care today; this time is exclusive of procedural time. Quality VTE Deep Vein Thrombosis/Pulmonary Embolism Present on Admission: No
[2022-02-15 12:00] VITALS: BP 113/71; PULSE 84; RESP 20; TEMP 36.2; O2SAT 97
--- NOTE | 2022-02-15 17:05 | PT-IP ANOTE ---
Attempted to see pt at 1650. He had just been repositioned in bed by nursing and his meal tray had just been delivered. Communicated with pt by writing on white board. Pt clearly refused mobility. Attempted to assist pt with supine exercises but pt called out in pain with all touch. Assisted pt to set up his meal tray and observed pt eating with no overt signs of aspiration. Will attempt to follow up with pt next day.
[2022-02-15 18:00] VITALS: BP 106/59; PULSE 91; RESP 18; TEMP 36.9; O2SAT 92
[2022-02-15] MEDS: HYDROMORPHONE 0.5 MG INJ 0.25 MG IV (18:51)
[2022-02-15 23:56] VITALS: BP 90/55; PULSE 85; RESP 19; TEMP 37.6; O2SAT 92
[2022-02-16 00:28] VITALS: BP 93/52; PULSE 89; RESP 15; TEMP 37.7; O2SAT 94
[2022-02-16 01:59] VITALS: BP 103/62; PULSE 83; RESP 19; TEMP 37.9; O2SAT 94
[2022-02-16 06:00] VITALS: BP 119/77; PULSE 77; RESP 14; TEMP 36.9; O2SAT 95
[2022-02-16 06:25] LABS: Mean Corpuscular HGB Conc 34.5 % (30-36); Mean Corpuscular Hemoglobin 30.4 PG (26-34); Mean Corpuscular Volume 88.2 fL (80-100); Platelet Count 60 X10^3/uL (150-400); Red Blood Cell Count 2.95 X10^6/uL (4.5-5.9); Red Cell Distribution Width 16.4 % (11.6-14.8)
[2022-02-16 06:27] LABS: White Blood Cell Count 1.9 X10^3/uL (4.5-11.0)
[2022-02-16 06:36] LABS: Alanine Aminotransferase 15 IU/L (<50); Albumin 2.1 g/dL (3.5-5.0); Albumin Globulin Ratio 0.5 (1.0-2.8); Alkaline Phosphatase 128 U/L (38-126); Aspartate Aminotransferase 27 IU/L (17-59); BUN Creatinine Ratio 21.7 (6-22); Bilirubin Total 0.4 mg/dL (0.2-1.3); Blood Urea Nitrogen 15 mg/dL (9-20); Calcium 6.8 mg/dL (8.4-10.2); Carbon Dioxide 22 mmol/L (22-32); Chloride 109 mmol/L (98-107); Estimated Glomerular Filt Rate > 60 mL/min (>60); Glucose 83 mg/dL (80-110); HEMOLYSIS < 15 (0-50); Potassium 3.7 mmol/L (3.4-5.1); Sodium 136 mmol/L (137-145); Total Protein 6.1 g/dL (6.3-8.2)
[2022-02-16 08:09] LABS: Add Manual Diff / Slide Review YES
[2022-02-16 08:13] LABS: Neutrophils Absolute Manual 912 /uL (3000-5900); Poikilocytosis 1+; Total Cells Counted 50
--- NOTE | 2022-02-16 08:46 | PM.PN.1 ---
Subjective Subjective Date Patient Seen: 02/16/22 Interval history: Demarcus Paredes is a 71yo M with past medical history of 60 pack year smoker, and previous alcohol abuse who presented to the ED from EMS due to being found in his home covered in stool and urine and his home in disarray. Found to be COVID positive in ED. Patient very hard of hearing and not willing to listen or try to listen to my questions or answer any questions. Exam Vital Signs (past 8 hours): - 02/16/22 01:59 02/16/22 06:00 Temperature 100.2 F H 98.5 F Pulse Rate 83 77 Respiratory Rate 19 14 Blood Pressure 103/62 119/77 Pulse Oximetry 94 95 Oxygen Flow Rate 0 0 Oxygen Delivery Method Room Air Oxygen Flow Rate 0 Narrative Exam Narrative: GEN: no acute distress, has very dramatic mouth breathing HEENT: PERRL, wearing glasses head is normocephalic NECK: trachea midline CV: regular rate and rhythm, no murmurs PULM: clear bilaterally ABD: soft, nontender, nondistended, no organomegaly EXT: warm and well perfused with no edema NEURO: Awake and alert, will not answer questions about orientation Objective Labs Result Diagrams: 02/16/22 06:08 02/16/22 06:08 Labs: Laboratory Results - last 24 hr 02/16/22 02/16/22 06:08 06:08 WBC 1.9 L* RBC 2.95 L Hgb 9.0 L Hct 26.0 L MCV 88.2 MCH 30.4 MCHC 34.5 RDW 16.4 H Plt Count 60 L Neut % (Auto) Mixer Operator Vacuum [place] Lymph % (Auto) Mixer Operator Vacuum Pan [place] % (Auto) Mixer Operator Vacuum [place] Eos % (Auto) Mixer Operator Vacuum [place] Baso % (Auto) Mixer Operator Vacuum [place] Neut # (Auto) Mixer Operator Vacuum [place] Lymph # (Auto) Mixer Operator Vacuum [place] # (Auto) Mixer Operator Vacuum [place] Eos # (Auto) Mixer Operator Vacuum [place] Baso # (Auto) Mixer Operator Vacuum Pan [place] Total Counted 50 Seg Neutrophils % 44.0 Band Neutrophils % 4.0 Lymphocytes % (Manual) 36.0 Monocytes % (Manual) 14.0 H Eosinophils % (Manual) 2.0 Neutrophils # (Manual) 912 L RBC Morphology Not Reportable Poikilocytosis 1+ H Sodium 136 L Potassium 3.7 Chloride 109 H Carbon Dioxide 22 BUN 15 Creatinine 0.69 Estimated GFR > 60 BUN/Creatinine Ratio 21.7 Glucose 83 Calcium 6.8 L Total Bilirubin 0.4 AST 27 ALT 15 Alkaline Phosphatase 128 H Total Protein 6.1 L Albumin 2.1 L Globulin 4.0 Albumin/Globulin Ratio 0.5 L PFSH Social History household members: friend(s) Smoking Status: Former smoker alcohol intake: former Assessment & Plan Assessment & Plan narrative: This is a 71-year-old male brought in for grave disability and found to have COVID along with cirrhosis, ascites and portal hypertension on CT scan.? # failure to thrive # unsafe living environment -patient apparently not caring for himself and house is in disarray -brought in covered in urine and feces -BROKERAGE CLERK consult for dispo planning -PT eval recommending SNF # generalized abd pain, improving -patient has said previously he has pain from acid reflux -on protonix po daily -cannot rule out SBE, consider US guided paracentesis if not improving # UTI, E coli -pyuria on UA, culture with >100k GNB -continue rocephin 1g daily x5 days, last dose will be February 17. # COVID positive -tested positive in ED, has dry cough with normal O2 sats -isolation precautions -fever on 02/13 to 100.4F likely due to COVID, still spiking fevers with 100.2F last night. -manage symptomatically # cirrhosis with ascites and portal HTN # 1.8cm hepatic density concerning for HCC -seen on CT abd pelvis, pt notes he previously drank alcohol heavily so likely cause of cirrhosis -has significant abdominal varices on exam -AFP 3.7 (normal), INR 1.5 yesterday and today ALT and AST are normal -CMP -sodium 136 calcium 6.8 alkaline phosphatase 128 total protein 6.1 and albumin 2.1 #pancytopenia -initial WBC 2.4, Hgb 9.2 and platelets 85, unclear cause but could be due to cirrhosis and portal HTN causing splenomegaly -WBC 1.9 on 02/16/22, this is stable, platelets 60 today -avoid lovenox/heparin as platelets <100k -monitor for bleeding -B12 and folate normal -worsening pancytopenia probably due to COVID and cirrhosis # hypokalemia, corrected -K 3.4 on admission, normal today at 3.7 -replete and monitor as necessary # hypocalcemia. Replace and also give multivitamin, vitamin-D # constipation -scheduled laxatives # Severe chronic protein calorie malnutrition r/t limited ability to cook, predicted inadequate PO, and poor dentition aeb BMI low for age (<21) and physical signs of wasting per physical exam. Eating breakfast well currently. The patient is at much higher risk for medical and surgical complications because of his malnutrition.? This increases the difficulty and complexity of medical and surgical interventions and increases the chances of poor outcomes such as morbidity and mortality. #generalized pain -musculoskeletal pain with significant bilateral knee contractures in extremities -use low to moderate dose schedule Tylenol, avoid narcotics due to advanced liver disease Follow labs and patient clinically. DVT prophylaxis: Held due to thrombocytopenia On 02/16/2022 the patient was unable to cooperate with a discussion about next of kin, backup decision maker, possibility of hospice/palliative care. Time Spent With Patient Critical Care time: I spent a total of [] minutes of critical care time on this patient's care today; this time is exclusive of procedural time. Quality VTE Deep Vein Thrombosis/Pulmonary Embolism Present on Admission: No
[2022-02-16] MEDS: cefTRIAXone 1,000 MG in SODIUM CHLORIDE 0.9% 100 ML 200 MG IV (08:53)
[2022-02-16 08:56] VITALS: BP 101/66; PULSE 78; RESP 22; TEMP 35.9; O2SAT 91
[2022-02-16] MEDS: CALCIUM CARBONATE 600 MG TABLET 1200 MG PO (10:01)
[2022-02-16] MEDS: MULTIVITAMIN 1 TABLET 1 TAB PO (10:01)
[2022-02-16] MEDS: CHOLECALCIFEROL (VITAMIN D3) 1,000 UNIT TABLET 1000 UNIT PO (10:01)
--- NOTE | 2022-02-16 11:26 | CM.DPNOTE ---
Addendum entered by Orin Kaye R.N. 02/16/22 12:51: Called over at [facility], and left a message for care management, transitions of transitional care nurse, Renee, a message, did not leave patient's name over the phone. Attempting to get more information on patient, since notes indicate patient is a frequent flyer there. Will ask Renee if they have attempted swing bed at their facility for patient as well. Addendum entered by Orin Kaye R.N. 02/16/22 11:54: Called over at the [facility] number. The number is: [phone]. Andres is the [facility] rep for [facility]. Asked him if he would be eligible for any type of [facility] rehab. He indicated that he has no VA connection, and would at least need to have 70%. Original Note: DCP: Assisting ALISHA Rice, with case. [facility] Their phone number is: [phone]. Left a message asking if they still have motel vouchers for those with COVID> Did get a return call from [facility], and they no longer have motel vouchers for COVID, they ended on . Orin Kaye RN/Stitch Bonding Machine Operator
[2022-02-16] MEDS: HYDROMORPHONE 2 MG TABLET PO (12:24)
--- NOTE | 2022-02-16 13:27 | PT-IP ANOTE ---
Discussed pt with hospitalist physician and care management. Pt has been refusing care and therapies. Hospitalist directed to see pt again to assess willingness to participate with skilled therapy. Pt clearly states that he has been bed bound for at least three months but has struggled with his mobility for 20+ years. I know my limitations and I can't stand without falling over. Educated pt that PT and OT could provide assist for standing and transfer. Educated pt on risks of immobility. Pt continued to decline. Pt did mention that he has a wheelchair at home but that the brakes do not function properly. Pt states he has friends who bring him food. Pt is refusing therapies. Discharge PT at this time.
--- NOTE | 2022-02-16 13:48 | OT.IPNOTE ---
Attempted to see pt for OT eval with PT. Pt not willing to get up as feels that he is at his baseline and not wanting to try skilled therapy. Pt insists that he has been bed bound for the past 3 months and has friends bring him food. Pt states he know his limitations and therefore refusing OT eval. Hospitalist and renal case manager aware of pt's refusal to participate, therefore discharge OT eval orders.
[2022-02-16 15:37] VITALS: BP 131/71; PULSE 85; RESP 20; TEMP 37.4; O2SAT 93
[2022-02-17] VITALS: BP 116/71; PULSE 84; RESP 18; TEMP 37.5; O2SAT 98
--- NOTE | 2022-02-17 00:28 | PC.NURSE ---
Pt c/o 11/17 pain, Dilaudid PO offered and pt refused saying 'that shit doesn't work'. Offered water pt stated 'get that out of my face before i throw it'. Pt continuously hacking, educated pt to spit saliva out into baggie to prevent aspiration, pt again stated 'get that out of my face before i throw it'. Pt was educated no aggression is tolerated per policy. Pt placed in high fowlers position.
[2022-02-17 05:55] VITALS: BP 102/64; PULSE 80; RESP 19; TEMP 37.3; O2SAT 97
[2022-02-17 07:32] LABS: Hematocrit 27.1 % (41-53); Hemoglobin 9.1 g/dL (13.5-17.5); Mean Corpuscular HGB Conc 33.7 % (30-36); Mean Corpuscular Hemoglobin 30.1 PG (26-34); Mean Corpuscular Volume 89.3 fL (80-100); Platelet Count 62 X10^3/uL (150-400); Red Blood Cell Count 3.03 X10^6/uL (4.5-5.9); Red Cell Distribution Width 16.4 % (11.6-14.8)
[2022-02-17 07:34] LABS: Add Manual Diff / Slide Review YES; White Blood Cell Count 1.9 X10^3/uL (4.5-11.0)
[2022-02-17 07:48] LABS: Neutrophils Absolute Manual 855 /uL (3000-5900); Total Cells Counted 100
[2022-02-17 07:49] LABS: Alanine Aminotransferase 15 IU/L (<50); Albumin 2.2 g/dL (3.5-5.0); Albumin Globulin Ratio 0.6 (1.0-2.8); Alkaline Phosphatase 147 U/L (38-126); Aspartate Aminotransferase 30 IU/L (17-59); Bilirubin Total 0.3 mg/dL (0.2-1.3); Blood Urea Nitrogen 15 mg/dL (9-20); Carbon Dioxide 24 mmol/L (22-32); Chloride 109 mmol/L (98-107); Estimated Glomerular Filt Rate > 60 mL/min (>60); Glucose 92 mg/dL (80-110); HEMOLYSIS < 15 (0-50); Potassium 3.9 mmol/L (3.4-5.1); RBC Morphology Normal Morphology; Sodium 136 mmol/L (137-145); Total Protein 6.2 g/dL (6.3-8.2)
--- NOTE | 2022-02-17 08:04 | P.DS_ITS ---
History of Present Illness History of Present Illness Date Patient Seen: 02/17/22 Chief complaint: Pain in Legs/Abdomen Narrative: Demarcus Paredes is a 71yo M with past medical history of 60 pack year smoker, and previous alcohol abuse who presents to the ED from EMS due to being found in his home covered in stool and urine and his home in disarray. Found to be COVID positive in ED. Patient is very hard of hearing. He says his abdominal pain is due to acid reflux. He is wanting to eat and asking for juice. Patient says he was supposed to get a colonoscopy coming up but he cancelled it due to not having a ride to get there. Patient says he has friends who bring him food and cook for him. He says he has trouble walking so stays in bed most of the time. He denies recent alcohol use but said he drank heavily in the past. Continues to smoke. Says he has had a cough with dyspnea the past week or so and didn't realize he had COVID. He denies CP, NV, diarrhea or headache. Discharge Providers Provider Date of admission: 02/13/22 09:16 Discharge Date: 02/17/22 Primary care physician: Doctor Adalberto MD Consults: 02/12/22 15:21 Consult to INFORMATION SCIENTIST - Community Placement Worker Stat Comment: 02/12/22 18:05 Consult to Dietitian, Adult Routine Comment: Reason For Exam: malnutrition, temporal wasting 02/12/22 19:08 Consult to Occupational Therapy Evaluate & Treat Comment: Physician Instructions: Evaluate and treat Consult to Physical Therapy Evaluate & Treat Comment: Physician Instructions: Evaluate and Treat Discharge provider: Rashid Moncada DO Summary Hospital Course Discharge Diagnosis: # failure to thrive # unsafe living environment -patient apparently not caring for himself and house is in disarray -brought in covered in urine and feces -[facility] [place] consult for dispo planning -PT eval recommending SNF, however per INFORMATION SCIENTIST patient doesn't have the insurance benefits to pay for SNF. He will need to dc home. Given this patient and I had a 17 minute conversation about hospice given he would likely qualify due to his advanced liver cirrhosis and malnutrition. He agreed to hospice so a referral was placed. # generalized abd pain, improving -patient has said previously he has pain from acid reflux -on protonix po daily # UTI, E coli -pyuria on UA, culture with >100k GNB -continue rocephin 1g daily x5 days # COVID positive -tested positive in ED, has dry cough with normal O2 sats -isolation precautions -fever on 02/13 to 100.4F likely due to COVID -manage symptomatically # cirrhosis with ascites and portal HTN # 1.8cm hepatic density concerning for HCC -seen on CT abd pelvis, pt notes he previously drank alcohol and is also hep C positive so likely cause of cirrhosis -has significant abdominal varices on exam -AFP 3.7 (normal), ALT and AST are normal -sodium 136 calcium 6.8 alkaline phosphatase 128 total protein 6.1 and albumin 2.1 -would likely not be candidate for liver transplant due to lack of support #pancytopenia -initial WBC 2.4, Hgb 9.2 and platelets 85, unclear cause but could be due to cirrhosis and portal HTN causing splenomegaly -WBC 1.9 on 02/16/22, this is stable, platelets 60 today -avoid lovenox/heparin as platelets <100k -monitor for bleeding -B12 and folate normal -worsening pancytopenia probably due to COVID and cirrhosis # hypokalemia, corrected -K 3.4 on admission, normal today at 3.7 -replete and monitor as necessary # hypocalcemia.? Replace and also give multivitamin, vitamin-D # constipation -scheduled laxatives # Severe chronic protein calorie malnutrition r/t limited ability to cook, predicted inadequate PO, and poor dentition aeb BMI low for age (<21) and physical signs of wasting per physical exam.? Eating breakfast well currently. The patient is at much higher risk for medical and surgical complications because of his malnutrition.? This increases the difficulty and complexity of medical and surgical interventions and increases the chances of poor outcomes such as morbidity and mortality. #generalized pain -musculoskeletal pain with significant bilateral knee contractures in extremities -use low to moderate dose schedule Tylenol, avoid narcotics due to advanced liver disease Hospital Course: Admitted for failure to thrive and found to have advanced liver cirrhosis and chronic hep C. PT rec SNF but patient unwilling to continue working with PT and doesn't want to go to rehab. He also didn't have the insurance benefits per INFORMATION SCIENTIST to pay for it. Was noted to have severe malnutrition per dietary. Due to these, hospice was recommended and patient obliged. He was discharged home on hospice and with to supplement. Time Spent with Patient Time spent: Greater than 30 minutes Exam Vital Signs (past 8 hours): - 02/17/22 05:55 Temperature 99.2 F Pulse Rate 80 Respiratory Rate 19 Blood Pressure 102/64 Pulse Oximetry 97 Oxygen Flow Rate 0 Oxygen Delivery Method Room Air Oxygen Flow Rate 0 Narrative Exam Narrative: The patient is avoiding interaction, sleeping and only responds when his abdomen is palpated. Heart is regular rate and rhythm without murmur Lungs are clear to auscultation bilaterally Extremities have 1+ pitting edema with brownish darkened skin on the ankles. Abdomen is moderately distended and rigid consistent with known cirrhosis. His tenderness is definitely a reactive/guarding type tenderness as he appears to have no primary pain. Objective Labs Result Diagrams: 02/17/22 07:14 02/17/22 07:14 Labs: Laboratory Results - last 24 hr 02/16/22 02/17/22 02/17/22 06:08 07:14 07:14 WBC 1.9 L* RBC 3.03 L Hgb 9.1 L Hct 27.1 L MCV 89.3 MCH 30.1 MCHC 33.7 RDW 16.4 H Plt Count 62 L Neut % (Auto) Director Product Not Reportable Lymph % (Auto) Director Product Not Reportable [place] % (Auto) Director Product Not Reportable Eos % (Auto) Director Product Not Reportable Baso % (Auto) Director Product Not Reportable Neut # (Auto) Director Product Lymph # (Auto) Director Product Not Reportable [place] # (Auto) Director Product Not Reportable Eos # (Auto) Director Product Baso # (Auto) Director Product Not Reportable Total Counted 50 100 Seg Neutrophils % 44.0 45.0 Band Neutrophils % 4.0 Lymphocytes % (Manual) 36.0 24.0 L Atypical Lymphs % 19.0 H Monocytes % (Manual) 14.0 H 10.0 Eosinophils % (Manual) 2.0 2.0 Neutrophils # (Manual) 912 L 855 L RBC Morphology Not Reportable Normal morphology Poikilocytosis 1+ H Sodium 136 L Potassium 3.9 Chloride 109 H Carbon Dioxide 24 BUN 15 Creatinine 0.60 L Estimated GFR > 60 BUN/Creatinine Ratio 25.0 H Glucose 92 Calcium 7.0 L Total Bilirubin 0.3 AST 30 ALT 15 Alkaline Phosphatase 147 H Total Protein 6.2 L Albumin 2.2 L Globulin 4.0 Albumin/Globulin Ratio 0.6 L PFSH Social History household members: friend(s) Smoking Status: Former smoker alcohol intake: former Discharge Plan Discharge Plan Patient Disposition: Hospice - Home Discharge orders & Medications Follow up/Referrals: Miscellaneous,Doctor, MD [Primary Care Provider] - Visit Report/Discharge Packet Instructions: DI for Cirrhosis, DI for Urinary Tract Infection (UTI), DI for Abdominal Pain-Adult, How to Prevent Falls, DI for Pancytopenia, DI for COVID-19 (Suspected or Confirmed ) Stand Alone Forms: Patient Portal/API, Stroke Signs & Symptoms Discharge Data Primary Care Provider: Sandracellaneous,Doctor Quality VTE Deep Vein Thrombosis/Pulmonary Embolism Present on Admission: No
[2022-02-17 08:38] VITALS: BP 124/82; PULSE 80; RESP 20; TEMP 36.9; O2SAT 94
[2022-02-17] MEDS: MULTIVITAMIN 1 TABLET 1 TAB PO (09:58)
[2022-02-17] MEDS: SENNOSIDES 8.6 MG TABLET PO (09:58)
[2022-02-17] MEDS: CALCIUM CARBONATE 600 MG TABLET 1200 MG PO (09:58)
[2022-02-17] MEDS: CHOLECALCIFEROL (VITAMIN D3) 1,000 UNIT TABLET 1000 UNIT PO (09:58)
[2022-02-17] MEDS: cefTRIAXone 1,000 MG in SODIUM CHLORIDE 0.9% 100 ML 200 MG IV (09:59)
[2022-02-17 10:24] LABS: HBsAg Screen Negative (Negative); Hepatitis A Antibody IgM Negative (Negative); Hepatitis B Core Antibody IgM Negative (Negative); Hepatitis C Antibody >11.0 s/co ratio (0.0-0.9); Hepatitis C Quant 4570 IU/mL (.)
--- NOTE | 2022-02-17 13:44 | CM.DPNOTE ---
Called for BLS transport for pickup to patient's residence. Spoke to Lupillo at [facility] for a [phone] pickup time. Told her pt. is Covid + with no O2. Not sure if there were stairs and told her patient cannot go by stair emy. Relayed this information to ALISHA Larkin. Eva West CM Assist.
--- NOTE | 2022-02-17 14:38 | CM.DPC ---
Addendum entered by Honey Elizabeth, HUMAN FACTORS ERGONOMIST 02/18/22 08:57: ADD: MD Digital Research Analyst, [facility], Cheryl Izquierdo [phone] ext [phone] called to follow up. Reviewed note below. MD Jose F plans to follow up w/patient re any available [facility] resources and services JW Addendum entered by Krystal Samuels, HUMAN FACTORS ERGONOMIST 02/17/22 16:03: ADD: Call back from [facility] and they have a cancellation and can provide transport closer to 1615 today. RN, IT ASSOCIATE, and waxed bag machine operator aware. Original Note: DCP Discharge Home with HH Per MD, pt medically stable to d/c today and confirmed bedside that pt declines going to a facility (LTC or SNF) and pt also currently does not have insurance benefits for either and pt states his preference is to go home but wants HH RN and was noncommittal about Hospice referral but was not opposed to MD requesting Hospice Info Visit and referral. VERÓNICA updated [facility] on d/c home today and faxed F2F and HH orders and d/c summ not yet available and alerted them that pt may be agreeable with [facility] in the near future but not yet wanting to commit to Hospice. HH RN/PT/OT/MISSION ANALYST/HUMAN FACTORS ERGONOMIST towards attempting to assist pt in maybe applying for Medicare/medicaid/community resources. VERÓNICA called APS assigned VERÓNICA Nguyenblin [phone] and left ms updating on HH and Hospice referral and d/c to home tonight. VERÓNICA called pt's PCP office at [facility] and updated on d/c to home with HH today and faxed clinicals for PCP to review to fax [phone] towards scheduling a f/u appointment and they confirm they can do Telehealth or in person appointment and pt has not been seen by PCP for at least 6 months and they did set up HH through [facility] back in May 2020. VERÓNICA left msg for MD VERÓNICA Vazquez requesting she review pt to determine if any other services could be put in place to better assist pt and alerted her that clinicals were faxed to their office to review. SUBHASH Velasquez kindly called [facility] and scheduled BLS transport for next available which is 1800 to home today and BLS form completed and on chart. Plan: Patient to d/c home today with [facility] to follow via [facility] and [facility] to help determine if pt agreeable with Hospice after discharge. APS to continue following. ALISHA Larkin
[2022-02-17] MEDS: HYDROMORPHONE 2 MG TABLET PO (16:37)
--- NOTE | 2022-02-17 19:37 | PC.NURSE ---
Discharge: Pt distressed he was to be discharged. Had him work with DAY CARE AIDE. He made comments such as SI'm going to go home and . Know one cares Everyone is gone now. When asked about self harm he would not answer the question. Dr. Moncada made aware of patients comments and he went in and spoke with pt for a long time. A hospice referral was made. [facility] was also [facility]. DAY CARE AIDE made calls to numerous agency's. In the end pt was satisfied with the results. [facility] crew came and given report. Given paper work and house collins, however later the paper work was found in the room, they had accidently forgotten it and it is to be mailed to him. Paper work was reviewed with the patient but he appeared to not understand some of the information. Pt d/c to home via ambulance.
== END 2022-02-17 16:00 | disposition hospice, home (50) | DRG 177 ==
LOC: ED 17:23 → AC 17:35
PROVIDERS: Family Medicine; Internal Medicine; Neuromusculoskeletal Medicine, Sports Medicine; Admitting Provider Student in an Organized Health Care Education/Training Program; Emergency Provider Emergency Medicine; Referring Provider Emergency Medicine; Visit Provider Student in an Organized Health Care Education/Training Program
DX: U07.1 COVID-19 (principal); E43 Unspecified severe protein-calorie malnutrition; N39.0 Urinary tract infection, site not specified; D61.818 Other pancytopenia; A08.39 Other viral enteritis; Z68.1 Body mass index [BMI] 19.9 or less, adult; K76.6 Portal hypertension; K70.31 Alcoholic cirrhosis of liver with ascites; E87.6 Hypokalemia; K59.00 Constipation, unspecified; R62.7 Adult failure to thrive; K21.9 Gastro-esophageal reflux disease without esophagitis; B96.20 Unspecified Escherichia coli [E. coli] as the cause of diseases classified elsewhere; R52 Pain, unspecified; F10.11 Alcohol abuse, in remission; E83.51 Hypocalcemia; Y90.0 Blood alcohol level of less than 20 mg/100 ml; Z87.891 Personal history of nicotine dependence
CPT/HCPCS: 36415; 71260; 74022; 74177; 80048; 80053; 80074; 80305; 80320; 81003; 81015; 82105; 82550; 82607; 82746; 83605; 83690; 83735; 83880; 84145; 84443; 84484; 85007; 85025; 85610; 85651; 85730; 86140; 87040; 87077; 87086; 87186; 87635; 93005; 93010; 97162; 97530; 99284; C9803; G0378; J0696; J1170; Q9967

== ENCOUNTER 2022-03-06 13:33 | Observation (INO) | payer OTHER, SELFPAY ==
[2022-02-12 17:43] VITALS: BMI 17.9
[2022-03-06] VITALS (25 sets, daily range): BP systolic 108–158; BP diastolic 68–96; PULSE 66–92; RESP 12–56; TEMP 35.9; O2SAT 95–100
--- NOTE | 2022-03-06 13:40 | DI.RAD.S_ITS ---
PROCEDURE: XR ACUTE ABDOMEN SERIES INDICATIONS: states no bm in 4 weeks TECHNIQUE: One view chest and two views of the abdomen were acquired. COMPARISON: [facility], CR, XR ACUTE ABDOMEN SERIES, 02/12/2022, 14:12. FINDINGS: Surgical changes and devices: None. Chest: Lungs are clear. Heart size is normal. No pleural effusions. No pneumoperitoneum. Abdomen: Bowel gas pattern is normal. No suspicious calcifications. Visualized solid organ contours appear normal. Bones: No suspicious bony lesions. Multiple healed left rib fractures are noted. IMPRESSION: No acute intra-abdominal findings. Minimal to moderate stool burden appreciated. Dictated by: Almaz Kerr M.D. on 03/06/2022 at 14:37 Approved by: Almaz Kerr M.D. on 03/06/2022 at 14:38
[2022-03-06] MEDS: LACTULOSE 20 GM/30 ML SOLUTION PO (15:11)
[2022-03-06 15:35] LABS: Add Manual Diff / Slide Review NO; Basophils Absolute Auto 0 /uL (0-100); Basophils Percent Auto 0.6 % (0-2); Eosinophils Absolute Auto 100 /uL (0-450); Eosinophils Percent Auto 0.7 % (2-4); Hematocrit 30.5 % (41-53); Hemoglobin 10.4 g/dL (13.5-17.5); Lymphocytes Absolute Auto 1200 /uL (1100-4500); Mean Corpuscular HGB Conc 34.1 % (30-36); Mean Corpuscular Hemoglobin 31.2 PG (26-34); Mean Corpuscular Volume 91.6 fL (80-100); Monocytes Absolute Auto 600 /uL (0-900); Monocytes Percent Auto 8.1 % (3-14); Neutrophils Absolute Auto 5800 /uL (1500-7000); Neutrophils Percent Auto 75.6 % (50-75); Platelet Count 136 X10^3/uL (150-400); Red Blood Cell Count 3.34 X10^6/uL (4.5-5.9); White Blood Cell Count 7.7 X10^3/uL (4.5-11.0)
[2022-03-06 15:50] LABS: Alanine Aminotransferase 19 IU/L (<50); Albumin 2.4 g/dL (3.5-5.0); Albumin Globulin Ratio 0.5 (1.0-2.8); Alkaline Phosphatase 92 U/L (38-126); Aspartate Aminotransferase 41 IU/L (17-59); BUN Creatinine Ratio 28.8 (6-22); Bilirubin Total 1.3 mg/dL (0.2-1.3); Blood Urea Nitrogen 19 mg/dL (9-20); Calcium 7.7 mg/dL (8.4-10.2); Carbon Dioxide 26 mmol/L (22-32); Chloride 109 mmol/L (98-107); Estimated Glomerular Filt Rate > 60 mL/min (>60); Globulin 4.6 g/dL (1.7-4.1); Glucose 110 mg/dL (80-110); Lipase 94 U/L (23-300); Potassium 4.2 mmol/L (3.4-5.1); Sodium 141 mmol/L (137-145)
[2022-03-06 15:51] LABS: HEMOLYSIS 87 (0-50)
[2022-03-06] MEDS: BISACODYL 10 MG SUPP PR (15:59)
--- NOTE | 2022-03-06 16:10 | PC.NURSE ---
pt is poor historian. states he was just in the hospital and the antibiotics that they gave him did not work and he has not pooped in over 4 weeks. patient presents with fecal matter dried onto his backside. pressure ulcers on hips and buttocks.
--- NOTE | 2022-03-06 16:52 | ED_ITS ---
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 (Negative) U Benzodiazepines Scrn (Negative) Urine Cocaine Screen (Negative) U Marijuana (THC) Screen (Negative) Ethyl Alcohol ( - 10) mg/dL SARS-CoV-2 (PCR) (Negative) 03/06/22 03/06/22 03/06/22 Range/Units 15:20 18:26 18:26 WBC (4.5-11.0) X10^3/uL RBC (4.5-5.9) X10^6/uL Hgb (13.5-17.5) g/dL Hct (41-53) % MCV (80-100) fL MCH (26-34) PG MCHC (30-36) % RDW (11.6-14.8) % Plt Count (150-400) X10^3/uL Neut % (Auto) (50-75) % Lymph % (Auto) (25-40) % [place] % (Auto) (3-14) % Eos % (Auto) (2-4) % Baso % (Auto) (0-2) % Neut # (Auto) (2453-4399) /uL Lymph # (Auto) (5155-8088) /uL [place] # (Auto) (0-900) /uL Eos # (Auto) (0-450) /uL Baso # (Auto) (0-100) /uL PT (10.1-12.7) SECONDS INR (0.9-1.3) APTT (26-36) SECONDS Sodium (137-145) mmol/L Potassium (3.4-5.1) mmol/L Chloride (98-107) mmol/L Carbon Dioxide (22-32) mmol/L BUN (9-20) mg/dL Creatinine (0.66-1.25) mg/dL Estimated GFR (>60) mL/min BUN/Creatinine Ratio (6-22) Glucose (80-110) mg/dL Calcium (8.4-10.2) mg/dL Total Bilirubin (0.2-1.3) mg/dL AST (17-59) IU/L ALT (<50) IU/L Alkaline Phosphatase (38-126) U/L Total Protein (6.3-8.2) g/dL Albumin (3.5-5.0) g/dL Globulin (1.7-4.1) g/dL Albumin/Globulin Ratio (1.0-2.8) Lipase (23-300) U/L Urine Color Yellow Urine Appearance Clear Urine pH 6.0 (4.5-8.0) Ur Specific [place] 1.025 (1.000-1.035) Urine Protein Negative (Negative) Urine Glucose (UA) Negative (Negative) g/dL Urine Ketones Trace H (NEGATIVE) Urine Occult Blood Trace-intact (Negative) Urine Nitrate Negative (Negative) Urine Bilirubin 1+ H (NEGATIVE) Ur Bilirubin Confirm Negative (Negative) Urine Urobilinogen >=8.0 (0.2) E.U./dL Ur Leukocyte Esterase Negative (NEGATIVE) Urine RBC 1-5/hpf D (0-5/HPF) Urine WBC 5-10/hpf H (0-5/HPF) Ur Squamous Epith Cells 0-1 /hpf (0-5/HPF) Urine Bacteria Many (>30) H (None) Ur Culture Indicated? Specimen cultured U Opiates 300ng/mL cut Negative (Negative) Ur Oxycodone Screen Negative (Negative) Urine Methadone Screen Negative (Negative) Ur Barbiturates Screen Negative (Negative) U Tricyclic Antidepress Negative (Negative) Ur Phencyclidine Scrn Negative (Negative) Ur Amphetamines Screen Negative (Negative) U Methamphetamines Scrn Negative (Negative) Ur MDMA Scrn (Ecstasy) Negative (Negative) U Benzodiazepines Scrn Negative (Negative) Urine Cocaine Screen Negative (Negative) U Marijuana (THC) Screen Negative (Negative) Ethyl Alcohol < 10 ( - 10) mg/dL SARS-CoV-2 (PCR) (Negative) 03/06/22 03/07/22 03/07/22 Range/Units 19:31 07:30 07:30 WBC 5.5 (4.5-11.0) X10^3/uL RBC 3.17 L (4.5-5.9) X10^6/uL Hgb 9.8 L (13.5-17.5) g/dL Hct 28.8 L (41-53) % MCV 90.9 (80-100) fL MCH 30.8 (26-34) PG MCHC 33.9 (30-36) % RDW 16.2 H (11.6-14.8) % Plt Count 121 L (150-400) X10^3/uL Neut % (Auto) 68.5 (50-75) % Lymph % (Auto) 19.2 L (25-40) % [place] % (Auto) 9.9 (3-14) % Eos % (Auto) 1.5 L (2-4) % Baso % (Auto) 0.9 (0-2) % Neut # (Auto) 3800 (3703-9555) /uL Lymph # (Auto) 1100 (6504-8219) /uL [place] # (Auto) 500 (0-900) /uL Eos # (Auto) 100 (0-450) /uL Baso # (Auto) 100 (0-100) /uL PT (10.1-12.7) SECONDS INR (0.9-1.3) APTT (26-36) SECONDS Sodium 141 (137-145) mmol/L Potassium 3.7 (3.4-5.1) mmol/L Chloride 112 H (98-107) mmol/L Carbon Dioxide 27 (22-32) mmol/L BUN 15 (9-20) mg/dL Creatinine 0.63 L (0.66-1.25) mg/dL Estimated GFR > 60 (>60) mL/min BUN/Creatinine Ratio 23.8 H (6-22) Glucose 96 (80-110) mg/dL Calcium 7.4 L (8.4-10.2) mg/dL Total Bilirubin 1.0 (0.2-1.3) mg/dL AST 35 (17-59) IU/L ALT 16 (<50) IU/L Alkaline Phosphatase 91 (38-126) U/L Total Protein 6.4 (6.3-8.2) g/dL Albumin 2.2 L (3.5-5.0) g/dL Globulin 4.2 H (1.7-4.1) g/dL Albumin/Globulin Ratio 0.5 L (1.0-2.8) Lipase (23-300) U/L Urine Color Urine Appearance Urine pH (4.5-8.0) Ur Specific [place] (1.000-1.035) Urine Protein (Negative) Urine Glucose (UA) (Negative) g/dL Urine Ketones (NEGATIVE) Urine Occult Blood (Negative) Urine Nitrate (Negative) Urine Bilirubin (NEGATIVE) Ur Bilirubin Confirm (Negative) Urine Urobilinogen (0.2) E.U./dL Ur Leukocyte Esterase (NEGATIVE) Urine RBC (0-5/HPF) Urine WBC (0-5/HPF) Ur Squamous Epith Cells (0-5/HPF) Urine Bacteria (None) Ur Culture Indicated? U Opiates 300ng/mL cut (Negative) Ur Oxycodone Screen (Negative) Urine Methadone Screen (Negative) Ur Barbiturates Screen (Negative) U Tricyclic Antidepress (Negative) Ur Phencyclidine Scrn (Negative) Ur Amphetamines Screen (Negative) U Methamphetamines Scrn (Negative) Ur MDMA Scrn (Ecstasy) (Negative) U Benzodiazepines Scrn (Negative) Urine Cocaine Screen (Negative) U Marijuana (THC) Screen (Negative) Ethyl Alcohol ( - 10) mg/dL SARS-CoV-2 (PCR) Positive H (Negative) Point of care testing: Point of Care Testing Glucose POC 137 Imaging Data chest/abd xray: Radiologist's Impression: [address] [address] XRay Report Signed Patient: Demarcus Paredes MR#: [id number] : 1950 Acct:[id number] Age/Sex: 71 / M Date of Service: 03/06/22 Loc: ED Accession Number: [id number] ?? Procedure: XR acute abdomen series Ordering Provider: Verónica Hairston D.O. PROCEDURE:? XR ACUTE ABDOMEN SERIES ? INDICATIONS:? states no bm in 4 weeks ? TECHNIQUE:? One view chest and two views of the abdomen were acquired.? ? COMPARISON:? [facility], CR, XR ACUTE ABDOMEN SERIES, 02/12/2022, 14:12. ? FINDINGS:? ? Surgical changes and devices:? None.? ? Chest:? Lungs are clear.? Heart size is normal.? No pleural effusions.? No pneumoperitoneum.? ? Abdomen:? Bowel gas pattern is normal.? No suspicious calcifications.? Visualized solid organ contours appear normal.? ? Bones:? No suspicious bony lesions.? Multiple healed left rib fractures are noted. ? IMPRESSION:? No acute intra-abdominal findings.? Minimal to moderate stool burden appreciated. ? ? Dictated by: Almaz Kerr M.D. on 03/06/2022 at 14:37 ? ? Approved by: Almaz Kerr M.D. on 03/06/2022 at 14:38?? US - DVT: Radiologist's Impression: prelim from tech negative. ECG Data Attestation: I personally reviewed and interpreted this ECG as follows: Prior ECG tracings: available for review Interpretation: Sinus rhythm rate of 76 WA 178 QRS 86 QTC 481. No acute ST changes. No acute ST changes. MDM Narrative Medical decision making narrative: This is a 71-year-old male who presents for multiple complaints he states he is not able to stool but is currently stooling appropriately here in the department. Is not diarrheal is not black or bloody. X-ray was obtained shows no acute changes labs overall are much improved from his last visit and he is no longer pancytopenic, platelets are low at 136 but improved from the 60s range, hemoglobin is 10.4 also much improved. Patient's INR is elevated 1.5 consistent with visit on 02/15/2022 likely secondary to his cirrhosis. Patient's CMP shows a chloride of 109 normal renal function electrolytes, bilirubin, AST alk-phos are slightly improved and lipase is negative. UTI shows trace ketones positive for bilirubin. U tox negative, ETOH is negative. <Aftab Cortez, DO - Last Filed: 03/08/22 02:24> Lab Data Labs: Lab Results 03/06/22 03/06/22 03/06/22 Range/Units 15:20 15:20 15:20 WBC 7.7 (4.5-11.0) X10^3/uL RBC 3.34 L (4.5-5.9) X10^6/uL Hgb 10.4 L (13.5-17.5) g/dL Hct 30.5 L (41-53) % MCV 91.6 (80-100) fL MCH 31.2 (26-34) PG MCHC 34.1 (30-36) % RDW 16.0 H (11.6-14.8) % Plt Count 136 L (150-400) X10^3/uL Neut % (Auto) 75.6 H (50-75) % Lymph % (Auto) 15.0 L (25-40) % [place] % (Auto) 8.1 (3-14) % Eos % (Auto) 0.7 L (2-4) % Baso % (Auto) 0.6 (0-2) % Neut # (Auto) 5800 (4983-7381) /uL Lymph # (Auto) 1200 (0394-6727) /uL [place] # (Auto) 600 (0-900) /uL Eos # (Auto) 100 (0-450) /uL Baso # (Auto) 0 (0-100) /uL PT 17.7 H (10.1-12.7) SECONDS INR 1.5 H (0.9-1.3) APTT 32 (26-36) SECONDS Sodium 141 (137-145) mmol/L Potassium 4.2 (3.4-5.1) mmol/L Chloride 109 H (98-107) mmol/L Carbon Dioxide 26 (22-32) mmol/L BUN 19 (9-20) mg/dL Creatinine 0.66 (0.66-1.25) mg/dL Estimated GFR > 60 (>60) mL/min BUN/Creatinine Ratio 28.8 H (6-22) Glucose 110 (80-110) mg/dL Calcium 7.7 L (8.4-10.2) mg/dL Total Bilirubin 1.3 (0.2-1.3) mg/dL AST 41 (17-59) IU/L ALT 19 (<50) IU/L Alkaline Phosphatase 92 (38-126) U/L Total Protein 7.0 (6.3-8.2) g/dL Albumin 2.4 L (3.5-5.0) g/dL Globulin 4.6 H (1.7-4.1) g/dL Albumin/Globulin Ratio 0.5 L (1.0-2.8) Lipase 94 (23-300) U/L Urine Color Urine Appearance Urine pH (4.5-8.0) Ur Specific [place] (1.000-1.035) Urine Protein (Negative) Urine Glucose (UA) (Negative) g/dL Urine Ketones (NEGATIVE) Urine Occult Blood (Negative) Urine Nitrate (Negative) Urine Bilirubin (NEGATIVE) Ur Bilirubin Confirm (Negative) Urine Urobilinogen (0.2) E.U./dL Ur Leukocyte Esterase (NEGATIVE) Urine RBC (0-5/HPF) Urine WBC (0-5/HPF) Ur Squamous Epith Cells (0-5/HPF) Urine Bacteria (None) Ur Culture Indicated? U Opiates 300ng/mL cut (Negative) Ur Oxycodone Screen (Negative) Urine Methadone Screen (Negative) Ur Barbiturates Screen (Negative) U Tricyclic Antidepress (Negative) Ur Phencyclidine Scrn (Negative) Ur Amphetamines Screen (Negative) U Methamphetamines Scrn (Negative) Ur MDMA Scrn (Ecstasy) (Negative) U Benzodiazepines Scrn (Negative) Urine Cocaine Screen (Negative) U Marijuana (THC) Screen (Negative) Ethyl Alcohol ( - 10) mg/dL SARS-CoV-2 (PCR) (Negative) 03/06/22 03/06/22 03/06/22 Range/Units 15:20 18:26 18:26 WBC (4.5-11.0) X10^3/uL RBC (4.5-5.9) X10^6/uL Hgb (13.5-17.5) g/dL Hct (41-53) % MCV (80-100) fL MCH (26-34) PG MCHC (30-36) % RDW (11.6-14.8) % Plt Count (150-400) X10^3/uL Neut % (Auto) (50-75) % Lymph % (Auto) (25-40) % [place] % (Auto) (3-14) % Eos % (Auto) (2-4) % Baso % (Auto) (0-2) % Neut # (Auto) (6923-9822) /uL Lymph # (Auto) (3697-0929) /uL [place] # (Auto) (0-900) /uL Eos # (Auto) (0-450) /uL Baso # (Auto) (0-100) /uL PT (10.1-12.7) SECONDS INR (0.9-1.3) APTT (26-36) SECONDS Sodium (137-145) mmol/L Potassium (3.4-5.1) mmol/L Chloride (98-107) mmol/L Carbon Dioxide (22-32) mmol/L BUN (9-20) mg/dL Creatinine (0.66-1.25) mg/dL Estimated GFR (>60) mL/min BUN/Creatinine Ratio (6-22) Glucose (80-110) mg/dL Calcium (8.4-10.2) mg/dL Total Bilirubin (0.2-1.3) mg/dL AST (17-59) IU/L ALT (<50) IU/L Alkaline Phosphatase (38-126) U/L Total Protein (6.3-8.2) g/dL Albumin (3.5-5.0) g/dL Globulin (1.7-4.1) g/dL Albumin/Globulin Ratio (1.0-2.8) Lipase (23-300) U/L Urine Color Yellow Urine Appearance Clear Urine pH 6.0 (4.5-8.0) Ur Specific [place] 1.025 (1.000-1.035) Urine Protein Negative (Negative) Urine Glucose (UA) Negative (Negative) g/dL Urine Ketones Trace H (NEGATIVE) Urine Occult Blood Trace-intact (Negative) Urine Nitrate Negative (Negative) Urine Bilirubin 1+ H (NEGATIVE) Ur Bilirubin Confirm Negative (Negative) Urine Urobilinogen >=8.0 (0.2) E.U./dL Ur Leukocyte Esterase Negative (NEGATIVE) Urine RBC 1-5/hpf D (0-5/HPF) Urine WBC 5-10/hpf H (0-5/HPF) Ur Squamous Epith Cells 0-1 /hpf (0-5/HPF) Urine Bacteria Many (>30) H (None) Ur Culture Indicated? Specimen cultured U Opiates 300ng/mL cut Negative (Negative) Ur Oxycodone Screen Negative (Negative) Urine Methadone Screen Negative (Negative) Ur Barbiturates Screen Negative (Negative) U Tricyclic Antidepress Negative (Negative) Ur Phencyclidine Scrn Negative (Negative) Ur Amphetamines Screen Negative (Negative) U Methamphetamines Scrn Negative (Negative) Ur MDMA Scrn (Ecstasy) Negative (Negative) U Benzodiazepines Scrn Negative (Negative) Urine Cocaine Screen Negative (Negative) U Marijuana (THC) Screen Negative (Negative) Ethyl Alcohol < 10 ( - 10) mg/dL SARS-CoV-2 (PCR) (Negative) 03/06/22 03/07/22 03/07/22 Range/Units 19:31 07:30 07:30 WBC 5.5 (4.5-11.0) X10^3/uL RBC 3.17 L (4.5-5.9) X10^6/uL Hgb 9.8 L (13.5-17.5) g/dL Hct 28.8 L (41-53) % MCV 90.9 (80-100) fL MCH 30.8 (26-34) PG MCHC 33.9 (30-36) % RDW 16.2 H (11.6-14.8) % Plt Count 121 L (150-400) X10^3/uL Neut % (Auto) 68.5 (50-75) % Lymph % (Auto) 19.2 L (25-40) % [place] % (Auto) 9.9 (3-14) % Eos % (Auto) 1.5 L (2-4) % Baso % (Auto) 0.9 (0-2) % Neut # (Auto) 3800 (7840-6182) /uL Lymph # (Auto) 1100 (0544-8764) /uL [place] # (Auto) 500 (0-900) /uL Eos # (Auto) 100 (0-450) /uL Baso # (Auto) 100 (0-100) /uL PT (10.1-12.7) SECONDS INR (0.9-1.3) APTT (26-36) SECONDS Sodium 141 (137-145) mmol/L Potassium 3.7 (3.4-5.1) mmol/L Chloride 112 H (98-107) mmol/L Carbon Dioxide 27 (22-32) mmol/L BUN 15 (9-20) mg/dL Creatinine 0.63 L (0.66-1.25) mg/dL Estimated GFR > 60 (>60) mL/min BUN/Creatinine Ratio 23.8 H (6-22) Glucose 96 (80-110) mg/dL Calcium 7.4 L (8.4-10.2) mg/dL Total Bilirubin 1.0 (0.2-1.3) mg/dL AST 35 (17-59) IU/L ALT 16 (<50) IU/L Alkaline Phosphatase 91 (38-126) U/L Total Protein 6.4 (6.3-8.2) g/dL Albumin 2.2 L (3.5-5.0) g/dL Globulin 4.2 H (1.7-4.1) g/dL Albumin/Globulin Ratio 0.5 L (1.0-2.8) Lipase (23-300) U/L Urine Color Urine Appearance Urine pH (4.5-8.0) Ur Specific [place] (1.000-1.035) Urine Protein (Negative) Urine Glucose (UA) (Negative) g/dL Urine Ketones (NEGATIVE) Urine Occult Blood (Negative) Urine Nitrate (Negative) Urine Bilirubin (NEGATIVE) Ur Bilirubin Confirm (Negative) Urine Urobilinogen (0.2) E.U./dL Ur Leukocyte Esterase (NEGATIVE) Urine RBC (0-5/HPF) Urine WBC (0-5/HPF) Ur Squamous Epith Cells (0-5/HPF) Urine Bacteria (None) Ur Culture Indicated? U Opiates 300ng/mL cut (Negative) Ur Oxycodone Screen (Negative) Urine Methadone Screen (Negative) Ur Barbiturates Screen (Negative) U Tricyclic Antidepress (Negative) Ur Phencyclidine Scrn (Negative) Ur Amphetamines Screen (Negative) U Methamphetamines Scrn (Negative) Ur MDMA Scrn (Ecstasy) (Negative) U Benzodiazepines Scrn (Negative) Urine Cocaine Screen (Negative) U Marijuana (THC) Screen (Negative) Ethyl Alcohol ( - 10) mg/dL SARS-CoV-2 (PCR) Positive H (Negative) Point of care testing: Point of Care Testing Glucose POC [address] scan - abdomen/pelvis: Radiologist's Impression: [address] [address] [address] Scan Report Signed Patient: Demarcus Paredes MR#: [id number] : 1950 Acct:[id number] Age/Sex: 71 / M Date of Service: 03/06/22 Loc: ED Accession Number: [id number] ?? Procedure: CT abdomen pelvis w con Ordering Provider: Aftab Cortez D.O. PROCEDURE:? CT ABDOMEN PELVIS W CON ? INDICATIONS:? Lower abdominal pain ? TECHNIQUE:? After the administration of IV contrast, axial sections were acquired from the lung bases to the pubic symphysis.? Coronal and sagittal reformats were performed.? For radiation dose reduction, the following was used:? automated exposure control, adjustment of mA and/or kV according to patient size. ? COMPARISON:? [facility], CT, CT CHEST ABD PEL W CON, 02/12/2022, 16:22. ? FINDINGS:? Image quality:? There is motion artifact limiting evaluation.? ? Lung bases:? There is a small left pleural effusion with bibasilar atelectasis, left greater than right.? ? Heart:? Heart is normal in size.? There is moderate fluid distention of the visualized distal esophagus with wall enhancement. ? ? ABDOMEN: Liver:? There is a lobulated cirrhotic liver redemonstrated.? Within segment 4A of the left hepatic lobe there is an oval hypervascular lesion measuring up to 1.7 x 1.5 cm as seen on series 2, image 17.? Within segment 7 of the right hepatic lobe, there is a peripheral hypoattenuating lesion redemonstrated.? This measures up to approximately 1.4 x 1.4 cm in transverse dimension. Gallbladder:? There is a densely calcified stone in the gallbladder measuring up to 2.4 cm.? There is nonspecific gallbladder wall thickening. Biliary ducts:? No biliary ductal dilatation.? ? Pancreas:? Unremarkable.? ? Spleen:? The spleen is mildly enlarged measuring up to 14.5 cm. Adrenal Glands:? No adrenal nodules.? ? Kidneys and Ureters:? No hydronephrosis.? ? ? Stomach and Bowel:? Stomach, small bowel loops, and colon are normal in caliber and wall thickness.? There are scattered air-fluid levels within the colon suggestive of a gastroenteritis.? Peritoneum:? There is a moderate amount of ascites in the abdomen and pelvis.? No free air.? ? Ventral Wall: ? No hernia.? Abdominal Nodes:? No retroperitoneal or mesenteric adenopathy by size criteria.? Vessels:? Aorta and inferior vena cava are normal in size.? There are small splenic varices.? Small gastroesophageal varices are also noted. ? PELVIS: Pelvic Organs:? There is moderate enlargement of the prostate.? ? Bladder:? There is a Reyes catheter within a nondistended urinary bladder.? There is suggestion of bladder wall thickening.? ? Pelvic Nodes: No enlarged lymph nodes.? Miscellaneous: No inguinal hernias are seen. ? ? ? Bones:? Visualized osseous structures demonstrate no suspicious focal lesions. ? IMPRESSION:? ? 1. Lobulated cirrhotic liver demonstrated with a hypervascular lesion in the left hepatic lobe and hypoattenuating lesion in the right hepatic lobe.? Recommend further evaluation with a liver protocol MRI if clinically indicated. ? 2. Findings consistent with portal hypertension with gastroesophageal and splenic varices. ? 3. Cholelithiasis without definite evidence of cholecystitis.? Recommend attention on follow-up.? ? 4. Mild fluid distention of the visualized distal esophagus.? ? Dictated by: Dale Beltran M.D. on 03/06/2022 at 23:01 ? ? Approved by: Dale Beltran M.D. on 03/06/2022 at 23:12? MDM Narrative Medical decision making narrative: This is a 71-year-old male who presents for multiple complaints he states he is not able to stool but is currently stooling appropriately here in the department. Is not diarrheal is not black or bloody. X-ray was obtained shows no acute changes labs overall are much improved from his last visit and he is no longer pancytopenic, platelets are low at 136 but improved from the 60s range, hemoglobin is 10.4 also much improved. Patient's INR is elevated 1.5 consistent with visit on 02/15/2022 likely secondary to his cirrhosis. Patient's CMP shows a chloride of 109 normal renal function electrolytes, bilirubin, AST alk-phos are slightly improved and lipase is negative. UTI shows trace ketones positive for bilirubin. U tox negative, ETOH is negative. Dr Cortez overnight 03/06-03/07: Received turned over. Should patient's history and physical exam and workup up to this point. Introduced myself to the patient. He is having UTI like symptoms. Is having frequency and urgency in the and hesitancy. He does have bacteria and white blood cells in his urine. Was given a dose of antibiotics. Patient has multiple other complaints. Please see HPI above. Was having continued abdominal pain so a CT scan was ordered. No acute surgical pathology noted. Patient is COVID positive but was COVID positive during his last admission. It appears that during his last admission it was felt he should be placed in living facility but was eventually discharged back to the living situation prior to his admission. Patient obviously can not take care of himself. He is not taken any of his medications in several days. He states he does not have a phone in order to call in refills. Social work consult has been placed. Care turned over to Dr. Carver to continue to observe until placement can be made. 0500 03/07: I was called into the patient's room. He did have a bowel movement. The patient was rolled he had to pressure ulcers on his buttocks and a 2nd more superficial pressure ulcer on the lateral aspect of his left hip. He is obviously been non mobile and sitting for an extended period of time most likely in urine and feces. He was cleaned. Wound care consult placed. 03/07/22 Wen-patient signed out to me by Dr. Cortez. Patient admitted for UTI on 02/12/2022 and discharged home on 02/17/2022 it appears that he was not safe to go home. It appears that he has not been moving very much in mostly sitting in his own feces. There were reports of constipation he apparently did receive lactulose enema. At this point patient is unable to care for himself at home. Dr. Avalos obtain patient's symptoms and test results. Social work has been involved reviewed notes difficult placement will not be placed in the next 24-48 hours. He does have a UTI and will be placed in observation. Dr Cortez overnight 03/07-03/08: Assumed care patient. Reviewed patient's daily events. Not much change since yesterday. He is had 2 doses of Rocephin for UTI. Has been evaluated by social work as well. Plan to be is to stay in the emergency department this evening and re-evaluation tomorrow regarding admission to hospital. Care turned over to Dr. Carver to continue to observe until disposition. <Carolina Carver, DO - Last Filed: 03/11/22 19:43> Lab Data Labs: Lab Results 03/06/22 03/06/22 03/06/22 Range/Units 15:20 15:20 15:20 WBC 7.7 (4.5-11.0) X10^3/uL RBC 3.34 L (4.5-5.9) X10^6/uL Hgb 10.4 L (13.5-17.5) g/dL Hct 30.5 L (41-53) % MCV 91.6 (80-100) fL MCH 31.2 (26-34) PG MCHC 34.1 (30-36) % RDW 16.0 H (11.6-14.8) % Plt Count 136 L (150-400) X10^3/uL Neut % (Auto) 75.6 H (50-75) % Lymph % (Auto) 15.0 L (25-40) % [place] % (Auto) 8.1 (3-14) % Eos % (Auto) 0.7 L (2-4) % Baso % (Auto) 0.6 (0-2) % Neut # (Auto) 5800 (2291-4541) /uL Lymph # (Auto) 1200 (9386-9578) /uL [place] # (Auto) 600 (0-900) /uL Eos # (Auto) 100 (0-450) /uL Baso # (Auto) 0 (0-100) /uL PT 17.7 H (10.1-12.7) SECONDS INR 1.5 H (0.9-1.3) APTT 32 (26-36) SECONDS Sodium 141 (137-145) mmol/L Potassium 4.2 (3.4-5.1) mmol/L Chloride 109 H (98-107) mmol/L Carbon Dioxide 26 (22-32) mmol/L BUN 19 (9-20) mg/dL Creatinine 0.66 (0.66-1.25) mg/dL Estimated GFR > 60 (>60) mL/min BUN/Creatinine Ratio 28.8 H (6-22) Glucose 110 (80-110) mg/dL Calcium 7.7 L (8.4-10.2) mg/dL Total Bilirubin 1.3 (0.2-1.3) mg/dL AST 41 (17-59) IU/L ALT 19 (<50) IU/L Alkaline Phosphatase 92 (38-126) U/L Total Protein 7.0 (6.3-8.2) g/dL Albumin 2.4 L (3.5-5.0) g/dL Globulin 4.6 H (1.7-4.1) g/dL Albumin/Globulin Ratio 0.5 L (1.0-2.8) Lipase 94 (23-300) U/L Urine Color Urine Appearance Urine pH (4.5-8.0) Ur Specific [place] (1.000-1.035) Urine Protein (Negative) Urine Glucose (UA) (Negative) g/dL Urine Ketones (NEGATIVE) Urine Occult Blood (Negative) Urine Nitrate (Negative) Urine Bilirubin (NEGATIVE) Ur Bilirubin Confirm (Negative) Urine Urobilinogen (0.2) E.U./dL Ur Leukocyte Esterase (NEGATIVE) Urine RBC (0-5/HPF) Urine WBC (0-5/HPF) Ur Squamous Epith Cells (0-5/HPF) Urine Bacteria (None) Ur Culture Indicated? U Opiates 300ng/mL cut (Negative) Ur Oxycodone Screen (Negative) Urine Methadone Screen (Negative) Ur Barbiturates Screen (Negative) U Tricyclic Antidepress (Negative) Ur Phencyclidine Scrn (Negative) Ur Amphetamines Screen (Negative) U Methamphetamines Scrn (Negative) Ur MDMA Scrn (Ecstasy) (Negative) U Benzodiazepines Scrn (Negative) Urine Cocaine Screen (Negative) U Marijuana (THC) Screen (Negative) Ethyl Alcohol ( - 10) mg/dL SARS-CoV-2 (PCR) (Negative) 03/06/22 03/06/22 03/06/22 Range/Units 15:20 18:26 18:26 WBC (4.5-11.0) X10^3/uL RBC (4.5-5.9) X10^6/uL Hgb (13.5-17.5) g/dL Hct (41-53) % MCV (80-100) fL MCH (26-34) PG MCHC (30-36) % RDW (11.6-14.8) % Plt Count (150-400) X10^3/uL Neut % (Auto) (50-75) % Lymph % (Auto) (25-40) % [place] % (Auto) (3-14) % Eos % (Auto) (2-4) % Baso % (Auto) (0-2) % Neut # (Auto) (1409-0568) /uL Lymph # (Auto) (3341-1468) /uL [place] # (Auto) (0-900) /uL Eos # (Auto) (0-450) /uL Baso # (Auto) (0-100) /uL PT (10.1-12.7) SECONDS INR (0.9-1.3) APTT (26-36) SECONDS Sodium (137-145) mmol/L Potassium (3.4-5.1) mmol/L Chloride (98-107) mmol/L Carbon Dioxide (22-32) mmol/L BUN (9-20) mg/dL Creatinine (0.66-1.25) mg/dL Estimated GFR (>60) mL/min BUN/Creatinine Ratio (6-22) Glucose (80-110) mg/dL Calcium (8.4-10.2) mg/dL Total Bilirubin (0.2-1.3) mg/dL AST (17-59) IU/L ALT (<50) IU/L Alkaline Phosphatase (38-126) U/L Total Protein (6.3-8.2) g/dL Albumin (3.5-5.0) g/dL Globulin (1.7-4.1) g/dL Albumin/Globulin Ratio (1.0-2.8) Lipase (23-300) U/L Urine Color Yellow Urine Appearance Clear Urine pH 6.0 (4.5-8.0) Ur Specific [place] 1.025 (1.000-1.035) Urine Protein Negative (Negative) Urine Glucose (UA) Negative (Negative) g/dL Urine Ketones Trace H (NEGATIVE) Urine Occult Blood Trace-intact (Negative) Urine Nitrate Negative (Negative) Urine Bilirubin 1+ H (NEGATIVE) Ur Bilirubin Confirm Negative (Negative) Urine Urobilinogen >=8.0 (0.2) E.U./dL Ur Leukocyte Esterase Negative (NEGATIVE) Urine RBC 1-5/hpf D (0-5/HPF) Urine WBC 5-10/hpf H (0-5/HPF) Ur Squamous Epith Cells 0-1 /hpf (0-5/HPF) Urine Bacteria Many (>30) H (None) Ur Culture Indicated? Specimen cultured U Opiates 300ng/mL cut Negative (Negative) Ur Oxycodone Screen Negative (Negative) Urine Methadone Screen Negative (Negative) Ur Barbiturates Screen Negative (Negative) U Tricyclic Antidepress Negative (Negative) Ur Phencyclidine Scrn Negative (Negative) Ur Amphetamines Screen Negative (Negative) U Methamphetamines Scrn Negative (Negative) Ur MDMA Scrn (Ecstasy) Negative (Negative) U Benzodiazepines Scrn Negative (Negative) Urine Cocaine Screen Negative (Negative) U Marijuana (THC) Screen Negative (Negative) Ethyl Alcohol < 10 ( - 10) mg/dL SARS-CoV-2 (PCR) (Negative) 03/06/22 03/07/22 03/07/22 Range/Units 19:31 07:30 07:30 WBC 5.5 (4.5-11.0) X10^3/uL RBC 3.17 L (4.5-5.9) X10^6/uL Hgb 9.8 L (13.5-17.5) g/dL Hct 28.8 L (41-53) % MCV 90.9 (80-100) fL MCH 30.8 (26-34) PG MCHC 33.9 (30-36) % RDW 16.2 H (11.6-14.8) % Plt Count 121 L (150-400) X10^3/uL Neut % (Auto) 68.5 (50-75) % Lymph % (Auto) 19.2 L (25-40) % [place] % (Auto) 9.9 (3-14) % Eos % (Auto) 1.5 L (2-4) % Baso % (Auto) 0.9 (0-2) % Neut # (Auto) 3800 (0575-6346) /uL Lymph # (Auto) 1100 (9289-2327) /uL [place] # (Auto) 500 (0-900) /uL Eos # (Auto) 100 (0-450) /uL Baso # (Auto) 100 (0-100) /uL PT (10.1-12.7) SECONDS INR (0.9-1.3) APTT (26-36) SECONDS Sodium 141 (137-145) mmol/L Potassium 3.7 (3.4-5.1) mmol/L Chloride 112 H (98-107) mmol/L Carbon Dioxide 27 (22-32) mmol/L BUN 15 (9-20) mg/dL Creatinine 0.63 L (0.66-1.25) mg/dL Estimated GFR > 60 (>60) mL/min BUN/Creatinine Ratio 23.8 H (6-22) Glucose 96 (80-110) mg/dL Calcium 7.4 L (8.4-10.2) mg/dL Total Bilirubin 1.0 (0.2-1.3) mg/dL AST 35 (17-59) IU/L ALT 16 (<50) IU/L Alkaline Phosphatase 91 (38-126) U/L Total Protein 6.4 (6.3-8.2) g/dL Albumin 2.2 L (3.5-5.0) g/dL Globulin 4.2 H (1.7-4.1) g/dL Albumin/Globulin Ratio 0.5 L (1.0-2.8) Lipase (23-300) U/L Urine Color Urine Appearance Urine pH (4.5-8.0) Ur Specific [place] (1.000-1.035) Urine Protein (Negative) Urine Glucose (UA) (Negative) g/dL Urine Ketones (NEGATIVE) Urine Occult Blood (Negative) Urine Nitrate (Negative) Urine Bilirubin (NEGATIVE) Ur Bilirubin Confirm (Negative) Urine Urobilinogen (0.2) E.U./dL Ur Leukocyte Esterase (NEGATIVE) Urine RBC (0-5/HPF) Urine WBC (0-5/HPF) Ur Squamous Epith Cells (0-5/HPF) Urine Bacteria (None) Ur Culture Indicated? U Opiates 300ng/mL cut (Negative) Ur Oxycodone Screen (Negative) Urine Methadone Screen (Negative) Ur Barbiturates Screen (Negative) U Tricyclic Antidepress (Negative) Ur Phencyclidine Scrn (Negative) Ur Amphetamines Screen (Negative) U Methamphetamines Scrn (Negative) Ur MDMA Scrn (Ecstasy) (Negative) U Benzodiazepines Scrn (Negative) Urine Cocaine Screen (Negative) U Marijuana (THC) Screen (Negative) Ethyl Alcohol ( - 10) mg/dL SARS-CoV-2 (PCR) Positive H (Negative) Point of care testing: Point of Care Testing Glucose POC 137 MDM Narrative Medical decision making narrative: This is a 71-year-old male who presents for multiple complaints he states he is not able to stool but is currently stooling appropriately here in the department. Is not diarrheal is not black or bloody. X-ray was obtained shows no acute changes labs overall are much improved from his last visit and he is no longer pancytopenic, platelets are low at 136 but improved from the 60s range, hemoglobin is 10.4 also much improved. Patient's INR is elevated 1.5 consistent with visit on 02/15/2022 likely secondary to his cirrhosis. Patient's CMP shows a chloride of 109 normal renal function electrolytes, bilirubin, AST alk-phos ar e slightly improved and lipase is negative. UTI shows trace ketones positive for bilirubin. U tox negative, ETOH is negative. Dr Cortez overnight 03/06-03/07: Received turned over. Should patient's history and physical exam and workup up to this point. Introduced myself to the patient. He is having UTI like symptoms. Is having frequency and urgency in the and hesitancy. He does have bacteria and white blood cells in his urine. Was given a dose of antibiotics. Patient has multiple other complaints. Please see HPI above. Was having continued abdominal pain so a CT scan was ordered. N o acute surgical pathology noted. Patient is COVID positive but was COVID positive during his last admission. It appears that during his last admission it was felt he should be placed in living facility but was eventually discharged back to the living situation prior to his admission. Patient obviously can not take care of himself. He is not taken any of his medications in several days. He states he does not have a phone in order to call in refills. Social work consult has been placed. Care turned over to Dr. Carver to continue to observe until placement can be made. 0500 03/07: I was called into the patient's room. He did have a bowel movement. The patient was rolled he had to pressure ulcers on his buttocks and a 2nd more superficial pressure ulcer on the lateral aspect of his left hip. He is obviously been non mobile and sitting for an extended period of time most likely in urine and feces. He was cleaned. Wound care consult placed. 03/07/22 Wen-patient signed out to me by Dr. Cortez. Patient admitted for UTI on 02/12/2022 and discharged home on 02/17/2022 it appears that he was not safe to go home. It appears that he has not been moving very much in mostly sitting in his own feces. There were reports of constipation he apparently did receive lactulose enema. At this point patient is unable to care for himself at home. Dr. Avalos obtain patient's symptoms and test results. Social work has been involved reviewed notes difficult placement will not be placed in the next 24-48 hours. He does have a UTI and will be placed in observation. Dr Cortez overnight 03/07-03/08: Assumed care patient. Reviewed patient's daily events. Not much change since yesterday. He is had 2 doses of Rocephin for UTI. Has been evaluated by social work as well. Plan to be is to stay in the emergency department this evening and re-evaluation tomorrow regarding admission to hospital. Care turned over to Dr. Carver to continue to observe until disposition. 03/08/22 Dr Carver: 1530 Patient signed out to me by Dr. Cortez. Patient overnight remained stable no events. Patient remained stable throughout the day plan is to admit patient this afternoon. I seen and evaluated patient today he is eating macaroni and cheese but complains of abdominal pain. Nursing staff reports that he was complaining of constipation he received lactulose he has been having bowel movements daily no longer having copious amounts of diarrhea but upon my exam his is a little but distended mildly tender. Repeat CT is done before he goes upstairs. CT shows effusions with cirrhotic liver with simple ascites and anasarca. Dr. Avalos kindly accepts patient Discharge Plan Departure Patient Disposition: Admitted as Observation Clinical Impression: Acute UTI, Adult failure to thrive Admit Date/Time: 03/08/22 13:55 Admit Provider: Marva Avalos
[2022-03-06 17:06] LABS: Ethanol (ETOH) < 10 mg/dL
--- NOTE | 2022-03-06 17:22 | PC.NURSE ---
pt is confused. pt states he feels like he needs to poop and nothing is coming out. pt told that poop did come out, he might still have more in there but he is in fact pooping. pt states no he is not. explained to pt that i just physically removed a large BM from the bed and cleaned his bottom. pt states that was not poop. He states i have a rock hard poop in there that is ripping me a new asshole and trying to come out of my penis.
[2022-03-06 17:29] LABS: INR 1.5 (0.9-1.3); Prothrombin Time 17.7 SECONDS (10.1-12.7)
[2022-03-06 17:31] LABS: PTT Partial Thromboplastin Tim 32 SECONDS (26-36)
--- NOTE | 2022-03-06 18:01 | DI.US.S_ITS ---
PROCEDURE: US PERIPH VENOUS LOW EXTREM LT INDICATIONS: LEFT LEG SWELLING TECHNIQUE: Real-time imaging, as well as color and pulse Doppler interrogation, were performed of the lower extremity deep veins from the inguinal ligament to the popliteal fossa. COMPARISON: [facility], , XR ACUTE ABDOMEN SERIES, 03/06/2022, 13:39. FINDINGS: The common femoral, femoral and popliteal veins are normally compressible, and free of intraluminal thrombus. Color and pulse Doppler demonstrate normal phasic intraluminal flow. There is normal augmentation response to distal compression maneuver. IMPRESSION: Negative for deep venous thrombosis. Dictated by: Osmar Salas M.D. on 03/06/2022 at 17:55 Approved by: Osmar Salas M.D. on 03/06/2022 at 17:55
[2022-03-06] MEDS: SODIUM CHLORIDE 0.9% 1,000 ML 1000 ML IV (18:14)
[2022-03-06 18:30] LABS: Appearance Urine UA CLEAR; Bilirubin Urine UA 1+ (NEGATIVE); Color Urine UA YELLOW; Glucose Urine UA NEGATIVE (Negative); Ketones Urine UA TRACE (NEGATIVE); Leukocyte Esterase Urine UA NEGATIVE (NEGATIVE); Nitrite Urine UA NEGATIVE (Negative); Occult Blood Urine UA TRACE-INTACT (Negative); Protein Urine UA NEGATIVE (Negative); Specific Gravity Urine UA 1.025 (1.000-1.035); Urobilinogen Urine UA >=8.0 E.U./dL (0.2)
[2022-03-06 18:40] LABS: Ictotest Urine Negative (Negative); UR Morphine/Opiate cutoff 300 Negative (Negative); Ur Creatinine Normal (Normal); Ur Specific Gravity Normal (Normal); Urine Amphetamines Negative (Negative); Urine Barbiturates Negative (Negative); Urine Benzodiazepines Negative (Negative); Urine Cocaine Negative (Negative); Urine MDMA Negative (Negative); Urine Methadone Negative (Negative); Urine Methamphetamines Negative (Negative); Urine Oxycodone Negative (Negative); Urine Phencyclidine Negative (Negative); Urine Tetrahydrocannabinol Negative (Negative); Urine Tricyclic Antidepressant Negative (Negative); Urine pH Normal (Normal)
[2022-03-06 18:43] LABS: Bacteria Urine Many (>30); Culture Indicated Urine Specimen Cultured; RBC Urine 1-5/HPF (0-5/HPF); Squamous Epithelial Cell Urine 0-1 /HPF (0-5/HPF); WBC Urine 5-10/HPF (0-5/HPF)
[2022-03-06 19:46] LABS: COVID19 -Nasal RAPID POSITIVE (Negative)
[2022-03-06] MEDS: cefTRIAXone 1,000 MG in SODIUM CHLORIDE 0.9% 100 ML 200 MG IV (19:59)
--- NOTE | 2022-03-06 21:22 | DI.CT.S_ITS ---
PROCEDURE: CT ABDOMEN PELVIS W CON INDICATIONS: Lower abdominal pain TECHNIQUE: After the administration of IV contrast, axial sections were acquired from the lung bases to the pubic symphysis. Coronal and sagittal reformats were performed. For radiation dose reduction, the following was used: automated exposure control, adjustment of mA and/or kV according to patient size. COMPARISON: [facility], CT, CT CHEST ABD PEL W CON, 02/12/2022, 16:22. FINDINGS: Image quality: There is motion artifact limiting evaluation. Lung bases: There is a small left pleural effusion with bibasilar atelectasis, left greater than right. Heart: Heart is normal in size. There is moderate fluid distention of the visualized distal esophagus with wall enhancement. ABDOMEN: Liver: There is a lobulated cirrhotic liver redemonstrated. Within segment 4A of the left hepatic lobe there is an oval hypervascular lesion measuring up to 1.7 x 1.5 cm as seen on series 2, image 17. Within segment 7 of the right hepatic lobe, there is a peripheral hypoattenuating lesion redemonstrated. This measures up to approximately 1.4 x 1.4 cm in transverse dimension. Gallbladder: There is a densely calcified stone in the gallbladder measuring up to 2.4 cm. There is nonspecific gallbladder wall thickening. Biliary ducts: No biliary ductal dilatation. Pancreas: Unremarkable. Spleen: The spleen is mildly enlarged measuring up to 14.5 cm. Adrenal Glands: No adrenal nodules. Kidneys and Ureters: No hydronephrosis. Stomach and Bowel: Stomach, small bowel loops, and colon are normal in caliber and wall thickness. There are scattered air-fluid levels within the colon suggestive of a gastroenteritis. Peritoneum: There is a moderate amount of ascites in the abdomen and pelvis. No free air. Ventral Wall: No hernia. Abdominal Nodes: No retroperitoneal or mesenteric adenopathy by size criteria. Vessels: Aorta and inferior vena cava are normal in size. There are small splenic varices. Small gastroesophageal varices are also noted. PELVIS: Pelvic Organs: There is moderate enlargement of the prostate. Bladder: There is a Reyes catheter within a nondistended urinary bladder. There is suggestion of bladder wall thickening. Pelvic Nodes: No enlarged lymph nodes. Miscellaneous: No inguinal hernias are seen. Bones: Visualized osseous structures demonstrate no suspicious focal lesions. IMPRESSION: 1. Lobulated cirrhotic liver demonstrated with a hypervascular lesion in the left hepatic lobe and hypoattenuating lesion in the right hepatic lobe. Recommend further evaluation with a liver protocol MRI if clinically indicated. 2. Findings consistent with portal hypertension with gastroesophageal and splenic varices. 3. Cholelithiasis without definite evidence of cholecystitis. Recommend attention on follow-up. 4. Mild fluid distention of the visualized distal esophagus. Dictated by: Dale Beltran M.D. on 03/06/2022 at 23:01 Approved by: Dale Beltran M.D. on 03/06/2022 at 23:12
[2022-03-07] VITALS (17 sets, daily range): BP systolic 119–141; BP diastolic 71–79; PULSE 65–92; RESP 14–21; TEMP 36.5; O2SAT 94–100
[2022-03-07] MEDS: DICYCLOMINE 10 MG CAPSULE PO (03:07)
[2022-03-07 07:42] LABS: Add Manual Diff / Slide Review NO; Basophils Absolute Auto 100 /uL (0-100); Basophils Percent Auto 0.9 % (0-2); Eosinophils Absolute Auto 100 /uL (0-450); Eosinophils Percent Auto 1.5 % (2-4); Hematocrit 28.8 % (41-53); Hemoglobin 9.8 g/dL (13.5-17.5); Lymphocytes Absolute Auto 1100 /uL (1100-4500); Lymphocytes Percent Auto 19.2 % (25-40); Mean Corpuscular HGB Conc 33.9 % (30-36); Mean Corpuscular Hemoglobin 30.8 PG (26-34); Mean Corpuscular Volume 90.9 fL (80-100); Monocytes Absolute Auto 500 /uL (0-900); Monocytes Percent Auto 9.9 % (3-14); Neutrophils Absolute Auto 3800 /uL (1500-7000); Neutrophils Percent Auto 68.5 % (50-75); Platelet Count 121 X10^3/uL (150-400); Red Blood Cell Count 3.17 X10^6/uL (4.5-5.9); Red Cell Distribution Width 16.2 % (11.6-14.8); White Blood Cell Count 5.5 X10^3/uL (4.5-11.0)
[2022-03-07 07:53] LABS: Alanine Aminotransferase 16 IU/L (<50); Albumin 2.2 g/dL (3.5-5.0); Albumin Globulin Ratio 0.5 (1.0-2.8); Alkaline Phosphatase 91 U/L (38-126); Aspartate Aminotransferase 35 IU/L (17-59); BUN Creatinine Ratio 23.8 (6-22); Blood Urea Nitrogen 15 mg/dL (9-20); Calcium 7.4 mg/dL (8.4-10.2); Carbon Dioxide 27 mmol/L (22-32); Chloride 112 mmol/L (98-107); Estimated Glomerular Filt Rate > 60 mL/min (>60); Globulin 4.2 g/dL (1.7-4.1); Glucose 96 mg/dL (80-110); HEMOLYSIS 55 (0-50); Potassium 3.7 mmol/L (3.4-5.1); Sodium 141 mmol/L (137-145); Total Protein 6.4 g/dL (6.3-8.2)
--- NOTE | 2022-03-07 10:30 | PT.IIE ---
Physical Therapy Inpatient Evaluation/Re-Eval M1 PT/OT-IP Prior Functional Status Start: 03/07/22 12:23 Freq: NEEDED Status: Active Protocol: Document 03/07/22 10:30 AB (Rec: 03/07/22 12:45 AB [email or web address]) Medical Review Prior Functional Status Medical History Reviewed Yes Communication pt continues to have cognitive issues but able to answer some questions but at time will just mumble words Mobility and Gait pt stated that he has not ambulated for years but he was able to swivel over w/c<> bed at home. stated that he has friends that comes in to check on him Social History Household Members none Living Arrangements House Number of Stairs To Enter/Railing? unable to obtain info regarding home set up Additional Social History Comment pt stated that he has a roommate but usure if this is accurate M2 PT-IP Current Condition Start: 03/07/22 12:23 Freq: NEEDED Status: Active Protocol: Document 03/07/22 10:30 AB (Rec: 03/07/22 12:45 AB [email or web address]) Physical Therapy Current Condition Current Condition Evaluation Date 03/07/22 Treatment Diagnosis UTI; abdominal pain; generalized weakness Onset Date 03/06/22 M3 PT-IP Subjective Start: 03/07/22 12:23 Freq: NEEDED Status: Active Protocol: Document 03/07/22 10:30 AB (Rec: 03/07/22 12:45 AB [email or web address]) Subjective Physical Therapy Visit Type Type Initial Evaluation Visit Start Time 10:30 Visit Stop Time 11:25 Total Visit Minutes 55 Number of CARDIAC SONOGRAPHER Visits 0 Physical Therapy Visit Comments Patient Comments pt was admitted to the hospital 02/13/22 and d/c 11/30. pt was seen for PT initially last admission but was d/c'd due to pt's refusals to do PT. Talked to pt today regarding PT goals and pt's participation. pt agreed to do PT and stated that he will try since he has to get stronger. M4 PT-IP Mobility and Gait Start: 03/07/22 12:23 Freq: NEEDED Status: Active Protocol: Document 03/07/22 10:30 AB (Rec: 03/07/22 12:45 AB [id number]) PT-Bed Mobility Assessment Supine to Sit Supine to Sit Minimal Assistance,Head of Bed Elevated,Bedrails Sit to Supine Sit to Supine Minimal Assistance,1 Person Assistance,Bedrails PT-Transfer Assessment Comments Mobility Comments pt completed supine to sit HOB elevated min A using bed rail . able to sit on EOB CGA. pt is impulsive and can easily get agitated. attempted sit to stand x 2 reps but pt unable to stand despite max A provided using FWW. Pushed call light x 2 for assistance but no staff came in to assist . assisted pt back to bed min A for LE elevation to bed. conducted stretching on B knees into extension and abduction. positioned pt in bed and educated on keeping LE straight and in abduction. call light and table placed within reach. PT-Balance Assessment Sitting Balance and Reactions Static Sitting Balance Ability Good Dynamic Sitting Balance Ability Fair M5 PT-IP Objective Assessments Start: 03/07/22 12:23 Freq: NEEDED Status: Active Protocol: Document 03/07/22 10:30 AB (Rec: 03/07/22 12:45 AB [email or web address]) Orientation Orientation/Cognition Level of Alertness Alert Orientation Name,Place,Situation Safety Awareness Decreased Safety Awareness Memory Description Short Term Impaired Comments with confusion Gross Range of Motion Lower Extremity ROM Assessment Bilaterally Impaired Impairments L knee flexion contracture ~ 30 deg R knee flexion contracture ~ 20 deg Strength Lower Extremity Strength Assessment Bilaterally Impaired Hip 3-/5 Knee 3-/5 M6 PT-IP Treatment Start: 03/07/22 12:23 Freq: NEEDED Status: Active Protocol: Document 03/07/22 10:30 AB (Rec: 03/07/22 12:45 AB [email or web address]) Physical Therapy Treatment Education Education Provided Safety Other Treatments Other Treatment Performed B knee stretching in extension and abduction M7 PT-IP Assessment and Plan Start: 03/07/22 12:23 Freq: NEEDED Status: Active Protocol: Document 03/07/22 10:30 AB (Rec: 03/07/22 12:45 AB [id number]) PT Summary Assessment and Plan Potential Rehabilitation Potential Fair Status of Condition at Evaluation Evolving Summary Impairments Pain,ROM,Strength,Balance, Coordination,Sensation,Tone, Cognition,Bed Mobility, Transfers,Gait,Activity Tolerance Assessment Summary PT eval received from ED. per GOLF CADDIE, Pt eval needed for d/c plan. pt requiring min A with bed mobility but unable to stand up despite max A provided. pt has been w/c bound/bed bound for a while and exibits bilateral LE flexion contractures and weakness. pt needs 31/08 care and will need oysterman care placement. At this time, pt will be seen for PT to improve overall strength and transfer ability and prevent further deconditioning. Goals Bed Mobility Goal Standby Assistance Transfer Goal Moderate Assistance Days to Meet Goals 10 Frequency of Treatment Frequency Of Treatment Once a Day Treatment Plan Physical Therapy Treatment Plan Bed Mobility Training,Transfer Training,Therapeutic Exercise ,Balance Retraining,Discharge Planning,Hot or Cold Pack, Neuromuscular Re-ed, Coordination Retraining Precautions Other Precautions Covid Recommendations To Nursing Amount of Assist Needed Mechanical Lift Discharge Recommendations PT Discharge Recommendations SNF Rehab Other Discharge Recommendations will need fci care placement Transportation Needs at Discharge Wheelchair/Cabulance,Stretcher /Ambulance
--- NOTE | 2022-03-07 12:52 | PC.NURSE ---
Patient in hospital bed with eyes closed breathing even and unlabored, azul catheter present without kinks or dependent loops, draining straw colored urine. Provided pt water to bedside.
--- NOTE | 2022-03-07 13:23 | CM.DANOTE ---
Initial DCP Assessment Note-ER Pt is a 71 yo male, resident of [place], presents via EMS with complaint of abd pain and constipation. PMH includes history of tobacco abuse, alcohol abuse who was recently admitted .06.30-02.17.22 for failure to thrive, UTI for E coli, COVID positive, malnutrition This APPRENTICE PLUMBER requested for consult to assess DC needs of this 71 yo and help coordinate safe dispo, no medical need for admission at this time PCP: No known PCP at this time Payer: [facility] Reviewed chart, patient returns to the ER with similar presentation as last visit, patient appears disheveled, appears quite thin and malnourished. patient is a poor historian, states he has felt constipated with pain all over. Patient denies current alcohol or drug use and tox and BAL are Neg. Patient with initial COVID infection late January/early February and is still testing COVID+ During last visit, patient had refused therapies and SNF/facility placement and inevitably returned home via BLS w/HH services and APS report This APPRENTICE PLUMBER spoke w/patient this morning, introduced self and role. Patient's thought process is linear and tangential but he admits to this APPRENTICE PLUMBER that up until recently he was able to maneuver his wheelchair around his mobile home independently. Patient tells this APPRENTICE PLUMBER he can no longer stand without help and admits something needs to change Patient initially resistant to idea of facility placement but willing to talk about how his home environment is currently failing him- patient able to tell this APPRENTICE PLUMBER he has friends that have been helping sporadically, states his only contact is friend Ino Ruiz, patient has no DPOA and no living relatives, no children. Patient tells this APPRENTICE PLUMBER he has a payee assigned through the ID, Beverly Alberto, based out of [employer]. PT ordered and pending today. Patient has food stamp benefits. [employer] number [id number]. Admitting currently seeing [facility] as ineligible, asked that [facility] coverage be researched Placed call to [facility] and [facility], neither would consider [facility], [facility] does have a VA contract. See next note for summary of discussion with friend Ino Ruiz, VA payee Rosette Alberto and mobile home park sheyla Gruber. ALISHA Chavez Discharge Planning/Care Management CM Discharge Assessment Start: 03/07/22 12:35 Freq: Status: Active Protocol: Document 03/07/22 12:35 KAYLA (Rec: 03/07/22 13:22 KAYLA [id number]) Discharge Planning Assessment Assigned Personal Consultant ALISHA Benson DPNAVEEN/Assigned Designee Name Ino Ruiz, friend Contact Information [phone] Advance Directives? No History Provided By Patient,Friend,Medical Record Has Patient been admitted in last 30 Yes days? Comment Admitted 1.06.30-02.17.22 Prior Living Arrangements Mobile home Household Members friend(s) Type of transporation used prior to Relies on Others admit Independent with ADL's No Is patient alert and oriented? Yes: Somewhat, cognitive impairment noted Needs Assistance With Bathing,Grooming,Meal Prep, Toileting,Managing Medications ,Home Chores / Shopping Barriers to Discharge Yes Comment See narrative for discussion re barriers to safe DC home Discharge Plan Long Term Facility Transportation Arrangement w/c expected
--- NOTE | 2022-03-07 13:45 | CM.DPNOTE ---
DCP Note Patient not cleared by ER provider for return home from the ER at this time; this ELECTRICIAN STATION ASSISTANT collecting information about patient and attempting placement. PT pending today Spoke w/VA assigned payee Beverly Alberto P [phone], [facility] w/patient's permission. Rosette manages patient's $1336 mo income, pays the approx $700 monthly rent for his mobile home directly to the landlord, Zaid Gruber. In addition, Rosette pays patient's utilities and deposits the remaining $250 into patient's bank acct monthly. Received call from friend Ino Joseph P [phone]; patient and Ino lived together for 8 years, patient moved out approx 22 years ago. Ino confirms he is patient's only consistent friend and contact. Ino currently sees patient once monthly, states he would be willing to provide consistent care to patient if he were paid by patient and/or the state. Ino cannot provide the care for free at this time, needs to be working Then received call from patient's landlord Zaid Gruber P [phone], no information shared with [place] but the following information about patient noted: [place]vey has been in close contact with Victor Hugo Padgett, [facility] Human services, [place] (sp?) [facility] group social worker, and [place] . Zaid advocates for patient to discharge to a facility for structured care and plans to contact agencies once patient returns home. According to ER COMMERCIAL PRINT SALESMAN, call received call from friend Popeye Adamson, P [phone] who states if patient needs any help please call me According to collection of information today, it seems patient has a number of contacts concerned about his safety and able to follow up in the outpatient setting. the greatest barrier to patient's health and stability in the outpatient setting seems to be his functional decline alongside waxing and waning cognition Patient agreeable to this ELECTRICIAN STATION ASSISTANT trying out some (SNF) options. Patient is COVID+ and so is not a candidate for use of the CM team IPAD to review MCR SNF choices. in addition, SNF options limited if patient only has [facility]. Attempting to confirm MCR benefit w/admitting. PT=SNF, note indicates patient is motivated to work with PT to get stronger patient hopes to eventually return home This ELECTRICIAN STATION ASSISTANT will fax clinical packet to [facility], [facility] (admissions returns Wednesday), [facility], [facility], Jenelle Nichols and [facility] needed if patient discharges to SNF ALISHA Chavez
--- NOTE | 2022-03-07 17:18 | PC.NURSE ---
Incontinent care provided, bowel movement in brief, patient wiped down and x4 dressings changed. Pt has open wounds on bilateral hips, x2 on buttocks, and non blanching skin on sacral area. Reyes Catheter cleaning care provided. Patient able to roll self and reposition self, heels offloaded with pillow. HOB elevated and assisted patient to reach dinner tray.
[2022-03-07] MEDS: cefTRIAXone 1,000 MG in SODIUM CHLORIDE 0.9% 100 ML 200 MG IV (21:14)
[2022-03-08] VITALS (8 sets, daily range): BP systolic 112–148; BP diastolic 70–94; PULSE 44–91; RESP 20; TEMP 36.8–37.3; O2SAT 70–99; BMI 23.2
--- NOTE | 2022-03-08 15:29 | DI.CT.S_ITS ---
PROCEDURE: CT ABDOMEN PELVIS W CON INDICATIONS: ab distention TECHNIQUE: After the administration of oral and IV contrast, axial sections were acquired from the lung bases to the pubic symphysis. Coronal and sagittal reformats were performed. For radiation dose reduction, the following was used: automated exposure control, adjustment of mA and/or kV according to patient size. COMPARISON: [facility], CT, CT ABDOMEN PELVIS W CON, 03/06/2022, 21:31. [facility], CT, CT CHEST ABD PEL W CON, 02/12/2022, 16:22. FINDINGS: Image quality: There is streak artifact seen through the upper abdomen. Lung bases: Small bilateral pleural effusions with apparent atelectasis can be seen. A small hiatal hernia is incidentally noted. Heart: No significant findings. At least moderate coronary artery calcification is seen. ABDOMEN: Liver: The liver demonstrates a shrunken, nodular appearance. There are 2 hyperenhancing lesion seen on series 2, image 34 and there is a hypoechoic enhancing lesion seen on series 2, image 32. Gallbladder: A large dense gallstone is seen within the gallbladder, measuring 2.2 cm. Biliary ducts: Unremarkable. Pancreas: Unremarkable. Spleen: The spleen is enlarged, measuring 14.7 cm. Adrenal Glands: Unremarkable. Kidneys and Ureters: Unremarkable. Stomach and Bowel: Moderate generalized wall thickening can be seen of the small bowel loops, which is commonly seen in patients with ascites. Mild distal colonic diverticulosis is seen, without marci findings of active diverticulitis. The stomach is moderately distended with food and air. Peritoneum: A moderate amount simple appearing ascites is seen that measures 3 Hounsfield units. No free air. Ventral Wall: No hernia. Generalized anasarca is seen. Abdominal Nodes: No retroperitoneal or mesenteric adenopathy by size criteria. Vessels: Aorta and inferior vena cava are normal in size. Portal venous hypertension can be seen, with splenic varices. Atherosclerotic calcification is noted. PELVIS: Pelvic Organs: Unremarkable. Bladder: A Reyes catheter is seen, which decompresses the bladder. Pelvic Nodes: No enlarged lymph nodes. Miscellaneous: No inguinal hernias are seen. Bones: S-shaped scoliotic curvature is seen. Relatively prominent lumbar spine degenerative change can be seen. The S1 level is transitional and is lumbarized on the right side. Along the anterior aspect of the left femur, there is a stable lesion seen, which may represent an osteochondroma. IMPRESSION: Small bilateral pleural effusions with apparent atelectasis. Cirrhotic liver redemonstrated with hyperenhancing and hypoenhancing lesions. For further evaluation, please consider a dedicated liver protocol MRI without and with IV contrast (assuming that there is no contraindication to MRI). There is splenomegaly with splenic varices. Moderate simple ascites is seen. Anasarca. Left proximal femur lesion, potentially representing an osteochondroma. Additional findings: At least moderate coronary artery calcification Hiatal hernia Gallstone S shaped scoliotic curvature Are focal lumbar spine degenerative change Transitional S1 with lumbarization on the right side Reyes catheter Dictated by: Osmar Salas M.D. on 03/08/2022 at 14:54 Approved by: Osmar Salas M.D. on 03/08/2022 at 15:06
--- NOTE | 2022-03-08 17:09 | PT-IP ANOTE ---
Pt not seen for PT today. Will be seeing pt tomorrow depending on triage level, PT census, and staffing.
[2022-03-08 18:36] LABS: Add Manual Diff / Slide Review NO; Basophils Absolute Auto 0 /uL (0-100); Basophils Percent Auto 0.2 % (0-2); Eosinophils Absolute Auto 100 /uL (0-450); Eosinophils Percent Auto 1.9 % (2-4); Hematocrit 30.7 % (41-53); Hemoglobin 10.4 g/dL (13.5-17.5); Lymphocytes Absolute Auto 1800 /uL (1100-4500); Mean Corpuscular HGB Conc 33.9 % (30-36); Mean Corpuscular Hemoglobin 30.9 PG (26-34); Mean Corpuscular Volume 91.1 fL (80-100); Monocytes Absolute Auto 700 /uL (0-900); Monocytes Percent Auto 10.8 % (3-14); Neutrophils Absolute Auto 3500 /uL (1500-7000); Neutrophils Percent Auto 58.1 % (50-75); Platelet Count 136 X10^3/uL (150-400); Red Blood Cell Count 3.37 X10^6/uL (4.5-5.9); Red Cell Distribution Width 16.8 % (11.6-14.8); White Blood Cell Count 6.1 X10^3/uL (4.5-11.0)
[2022-03-08 18:40] LABS: BUN Creatinine Ratio 23.8 (6-22); Blood Urea Nitrogen 15 mg/dL (9-20); Calcium 7.4 mg/dL (8.4-10.2); Carbon Dioxide 26 mmol/L (22-32); Chloride 109 mmol/L (98-107); Estimated Glomerular Filt Rate > 60 mL/min (>60); Glucose 88 mg/dL (80-110); HEMOLYSIS < 15 (0-50); Magnesium 1.8 mg/dL (1.6-2.3); Sodium 141 mmol/L (137-145)
[2022-03-08 19:09] LABS: INR 1.6 (0.9-1.3); Prothrombin Time 17.9 SECONDS (10.1-12.7)
[2022-03-08] MEDS: cefTRIAXone 1,000 MG in SODIUM CHLORIDE 0.9% 100 ML 200 MG IV (21:05)
[2022-03-08] MEDS: SENNOSIDES 8.6 MG TABLET 17.2 MG PO (21:06)
[2022-03-08] MEDS: OXYCODONE IR 5 MG TABLET PO (21:09)
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
[2022-03-08] MEDS: VANCOMYCIN 1,500 MG/300 ML PIGGYBACK 200 MG IV (23:30)
[2022-03-09 00:34] VITALS: BP 128/80; PULSE 100; RESP 20; TEMP 37.4; O2SAT 94
--- NOTE | 2022-03-09 03:55 | PC.NURSE ---
Comment: Right hip wound
--- NOTE | 2022-03-09 03:57 | PC.NURSE ---
Comment: Right hip abrasion
--- NOTE | 2022-03-09 03:58 | PC.NURSE ---
Comment: Left hip wound
[2022-03-09 04:00] VITALS: BP 115/70; PULSE 81; RESP 20; TEMP 37.3; O2SAT 96
[2022-03-09] MEDS: PANTOPRAZOLE DR 20 MG TABLET PO (06:20)
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
[2022-03-09 08:00] VITALS: BP 109/54; PULSE 86; RESP 17; TEMP 37.2; O2SAT 93
[2022-03-09] MEDS: VANCOMYCIN 1,000 MG/200 ML PIGGYBACK 200 MG IV (09:06)
[2022-03-09] MEDS: SENNOSIDES 8.6 MG TABLET 17.2 MG PO ×2 (09:06→20:09)
[2022-03-09] MEDS: ENOXAPARIN 40 MG/0.4 ML SYRINGE SUBCUT (09:06)
[2022-03-09 11:00] VITALS: BP 126/75; PULSE 87; RESP 17; TEMP 37.3; O2SAT 97
--- NOTE | 2022-03-09 13:40 | OT.IP.EVAL ---
Current Diagnoses Urinary tract infection, site not specified (03/08/22) Occupational Therapy Inpatient Evaluation/Re-Eval M1 PT/OT-IP Prior Functional Status Start: 03/07/22 12:23 Freq: NEEDED Status: Active Protocol: Document 03/09/22 14:20 CGR (Rec: 03/09/22 14:37 CGR [id number]) Medical Review Prior Functional Status Medical History Reviewed Yes Communication pt continues to have cognitive issues but able to answer some questions but at time will just mumble words Mobility and Gait pt stated that he has not ambulated for years but he was able to swivel over w/c<> bed at home. stated that he has friends that comes in to check on him Activities of Daily Living and IADL's pt states that he has been taking care of his personal ADLs but it is difficult and he is unable to reach his feet . Prior Functional Level (Other details) Per notes, pt use to have a roommate who has recently moved out of the trailer. Social History Household Members none Living Arrangements Mobile home M2 OT-IP Current Condition Start: 03/09/22 14:19 Freq: Status: Active Protocol: Document 03/09/22 14:20 CGR (Rec: 03/09/22 14:37 CGR [id number]) Occupational Therapy Current Condition Current Condition Evaluation Date 03/09/22 Treatment Diagnosis severe protein calorie malnutrition, cirrhosis, UTI Diagnosis Onset Date 03/08/22 M3 OT- IP Subjective and Pain Start: 03/09/22 14:19 Freq: Status: Active Protocol: Document 03/09/22 14:20 CGR (Rec: 03/09/22 14:37 CGR [id number]) OT- Subjective Occupational Therapy Visit Type Type Initial Evaluation Visit Start Time 13:09 Visit Stop Time 13:40 Total Visit Minutes 31 Notes Pt state he needs to poop. OT Pain Assessment Pain When Pain Assessed During Mobility Pain Present Pain Present Pain Reported Location generalized Pain Behaviors Calling Out,Facial Grimacing, Guarding Management Techniques Distraction,Modification of Treatment,Re-positioning M4 OT- IP ADL's Start: 03/09/22 14:19 Freq: Status: Active Protocol: Document 03/09/22 14:20 CGR (Rec: 03/09/22 14:37 CGR [id number]) OT [id number] General Evaluation Self-Feeding Ability Independent Comments OT Self-Feeding Comments Pt eating lunch when OT first entered the room earlier in day. OT ADL-Grooming Comments OT Grooming Comments pt declined OT ADL-Oral Care Comments Oral Care Comments pt declined OT ADL-Dressing General Eval Lower Body Dressing Ability Total Assistance Areas Needing Assistance Socks OT ADL-Toileting General Evaluation Toileting Ability Total Assistance Comments OT Toileting Comments Pt with brief on. He is unable to transfer to [facility] at this time. OT ADL-Bathing Comments OT Bathing Comments not performed M5 OT- IP IADL's Start: 03/09/22 14:19 Freq: Status: Active Protocol: Document 03/09/22 14:20 CGR (Rec: 03/09/22 14:37 CGR [id number]) OT-Instrumental Activities of Daily Living Deficits IADL Deficits Identified Deficits Home Safety Awareness Awareness of Need for Assistance at Home Decreased Awareness Ability to Problem Solve Emergency Unable to Problem Solve Situations Medication Management Medication Management Comments concerns regarding pt's ability to perform safely Money Management Money Management Comments concerns regarding pt's ability to perform safely Meal Preparation Meal Preparation Comments concerns regarding pt's ability to perform safely Process Manufacturing Engineer Process Manufacturing Engineer Comments concerns regarding pt's ability to perform safely Driving Driving Comments pt does not drive M6 OT- IP Functional Cognition Start: 03/09/22 14:19 Freq: Status: Active Protocol: Document 03/09/22 14:20 CGR (Rec: 03/09/22 14:37 CGR [id number]) Cognitive Factors Limiting Selfcare Function Cognitive Ability Level of Alertness Alert Patient Orientation Name Attention Span Ability Unable to Focus,Unable to Sustain Attention Ability to Follow Commands Able to Follow One Step Commands with Increased Time, Able to Follow One Step Commands with Repetition Cognitive Comments Cognitive Assessment Comments Pt is difficult to understand at times and was unable to comprehend the idea of a squat pivot transfer. OT- Vision and Hearing OT- Hearing Assessment OT- Hearing Assessment Hearing Impaired OT- Vision Assessment Visual Attentiveness WFL Occular Pursuits WFL Visual Convergence WFL M7 OT- IP Mobility and Balance Start: 03/09/22 14:19 Freq: Status: Active Protocol: Document 03/09/22 14:20 CGR (Rec: 03/09/22 14:37 CGR [id number]) OT- Bed Mobility Assessment Supine to Sit Supine to Sit Assist Maximum Assistance,1 Person Assistance Sit to Supine Sit to Supine Assist Maximum Assistance,1 Person Assistance Scooting Scooting to Edge of Bed Maximum Assistance OT-Transfer Assessment Sit to and From Stand Sit to and from Stand Total Assistance Devices Transfer Assistive Devices Gait Belt,Front Wheeled Walker Comments Mobility Comments 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 He was also unwilling to attempt squat pivot transfer. OT- Gait Assessment Comments Gait Ability Comments Pt has been non ambulatory for years. OT- Balance Assessment Sitting Balance and Reactions Static Sitting Balance Ability Poor Dynamic Sitting Balance Ability Poor M8 OT- IP Objective Assessments Start: 03/09/22 14:19 Freq: Status: Active Protocol: Document 03/09/22 14:20 CGR (Rec: 03/09/22 14:37 CGR [id number]) OT Gross Range of Motion Upper Extremity Range of Motion Assessment Bilaterally Impaired ROM Impairments AROM of the UE is limited on both shlds to 100 degrees. B knee restrictions into full extension. OT Strength Upper Extremity Strength Shoulder r 4, l 3+ Elbow 4- B Hand R 3+, L 4- OT- Coordination Assessment Comments Coordination Comments Pt declined to perform but noted spoon to mouth at lunch and able to put straw into ensure bottle and bring bottle to mouth to use straw. OT-Muscle Tone Assessment Muscle Tone WNL Yes OT Sensation Assessment Edema Edema Present Edema Comments LLe appears swollen M9 OT- IP Assessment and Plan Start: 03/09/22 14:19 Freq: Status: Active Protocol: Document 03/09/22 14:20 CGR (Rec: 03/09/22 14:37 CGR [id number]) OT Summary Assessment and Plan Potential Rehabilitation Potential Fair Analytic Complexity at Evaluation High Summary OT Impairments Pain,Range of Motion,Strength, Balance,Functional Cognition, Functional Mobility,Grooming, Dressing,Toileting,Bathing, Toilet Transfers,Shower Transfers,Activity Tolerance Progress Towards Goals Slow Progress due to Pain,Slow Progress due to Medical Issues,Slow Progress due to Activity Tolerance,Slow Progress due to Cognition Assessment Summary Pt presents as a high complexity evaluation s/p admit for severe protein calorie malnutrition, cirrhosis, and UTI. Pt is limited in his ability to move at this time d/t poor endurance and poor UE strength . Pt has flexion contracture to B knees that will prevent meaningful ambulation in the future but pt has been w/c bound for years and states that he was able to transfer from the bed to chair in the past. Pt will benefit from continued OT services. Recommend LTC. Goals Self-Feeding Goal Independent Grooming Goal Independent Dressing Goal Independent,Senior Occupational Therapist,Sock Aid Toileting Goal Independent Bathing Goal Minimal Assistance Toilet Transfer Goal Minimal Assistance Shower Transfer Goal Minimal Assistance Days to Meet Goals 45 Frequency of Treatment Frequency Of Treatment Once a Day Treatment Plan OT Treatment Plan ADL Training,Functional Cognition Training,Functional Mobility,Patient/Family Education,Discharge Planning Other Treatment Recommendations and Next ADLs seated EOB, UE therex Treatment Focus Discharge Recommendations OT Discharge Recommendations LTAC Transportation Needs at Discharge Stretcher/Ambulance
--- NOTE | 2022-03-09 13:44 | CM.DPNOTE ---
Discharge Planning Note: See Mirian OFFICE MACHINE SERVICER and Sole OFFICE MACHINE SERVICER assessment notes when he was boarding in ED. Admissions is still working on clarifying what insurance is active for him. He is a social admit and will need placement. Referrals sent to multiple facilities (See Mirian's note). Jose has returned call and asking for more information which was provided. [facility] cannot take Medicaid pt at this time. Aggie Lisa (sp?) ([phone]) from [employer]PS called and she will try to visit patient tomorrow, 03/10 or at the very least Wed, 03/11. She has never met patient but familiar with case. His roommate has moved out and there is no help if he were to return to his trailer. This DCP updated her that we were looking for LT placement and sorting out insurance. He is working with therapy today. Plan: Continue looking for [facility] placement, obtain insurance verification from Admissions who are looking into this, see their email of today 03.09.2022. Sandra Seaman RN/DCP
[2022-03-09] MEDS: LACTULOSE 20 GM/30 ML SOLUTION PO (14:02)
[2022-03-09 15:00] VITALS: BP 117/75; PULSE 90; RESP 17; TEMP 37.2; O2SAT 97
[2022-03-09 15:08] LABS: Ammonia (NH3) 28 umol/L (9-30)
[2022-03-09] MEDS: AMPICILLIN 1,000 MG in SODIUM CHLORIDE 0.9% 100 ML 200 MG IV ×2 (15:45→20:07)
--- NOTE | 2022-03-09 16:39 | PT.IPTN ---
Current Diagnoses Urinary tract infection, site not specified (03/08/22) Physical Therapy Treatment Note M2 PT-IP Current Condition Start: 03/07/22 12:23 Freq: NEEDED Status: Active Protocol: Document 03/07/22 10:30 AB (Rec: 03/07/22 12:45 AB [id number]) Physical Therapy Current Condition Current Condition Evaluation Date 03/07/22 Treatment Diagnosis UTI; abdominal pain; generalized weakness Onset Date 03/06/22 M3 PT-IP Subjective Start: 03/07/22 12:23 Freq: NEEDED Status: Active Protocol: Document 03/09/22 16:31 [facility] (Rec: 03/09/22 16:39 [facility] [id number]) Subjective Physical Therapy Visit Type Type Treatment Note Visit Start Time 14:00 Visit Stop Time 14:23 Total Visit Minutes 23 Number of SPORTS BOOK SERVER Visits 0 Physical Therapy Visit Comments Patient Comments pt was admitted to the hospital 02/13/22 and d/c 11/30. pt was seen for PT initially last admission but was d/c'd due to pt's refusals to do PT. Talked to pt today regarding PT goals and pt's participation. pt agreed to do PT and stated that he will try since he has to get stronger. Therapy Pain Assessment Pain When Pain Assessed During Mobility Pain Present Pain Present Pain Reported Location generalized Intensity 6 Scale Used Numeric (0 - 10) M4 PT-IP Mobility and Gait Start: 03/07/22 12:23 Freq: NEEDED Status: Active Protocol: Document 03/09/22 16:31 [facility] (Rec: 03/09/22 16:39 [facility] [id number]) PT-Bed Mobility Assessment Supine to Sit Supine to Sit Minimal Assistance,Head of Bed Elevated,Bedrails Sit to Supine Sit to Supine Moderate Assistance,1 Person Assistance,Bedrails Scooting Scooting Up and Down in Bed Maximum Assistance PT-Transfer Assessment Comments Mobility Comments Assisted to sitting at EOB with min assist. Sat x 2 min, unwilling to attempt to stand , requested back to bed, required mod assist for LE's and max assist of 2 (RN assisted PT) to scoot up in bed. Patient positioned in supine with pillows under knees, call light and tray table in reach. Gait Assessment Comments Gait Comments unable; patient reports he hasn't ambulated in years PT-Balance Assessment Sitting Balance and Reactions Static Sitting Balance Ability Fair Dynamic Sitting Balance Ability Fair M5 PT-IP Objective Assessments Start: 03/07/22 12:23 Freq: NEEDED Status: Active Protocol: Document 03/09/22 16:31 [facility] (Rec: 03/09/22 16:39 [facility] [id number]) Orientation Orientation/Cognition Level of Alertness Lethargic M6 PT-IP Treatment Start: 03/07/22 12:23 Freq: NEEDED Status: Active Protocol: Document 03/09/22 16:31 [facility] (Rec: 03/09/22 16:39 [facility] [id number]) Physical Therapy Treatment Exercises Exercises Ankle Pumps,Heel Slides,Short Arc Quads Other Treatments Other Treatment Performed PT assist with ex AAROM M7 PT-IP Assessment and Plan Start: 03/07/22 12:23 Freq: NEEDED Status: Active Protocol: Document 03/09/22 16:31 [facility] (Rec: 03/09/22 16:39 [facility] [id number]) PT Summary Assessment and Plan Summary Impairments Pain,ROM,Strength,Balance, Coordination,Sensation,Tone, Cognition,Bed Mobility, Transfers,Gait,Activity Tolerance Assessment Summary PT eval received from ED. per TYPE PROOF REPRODUCER, Pt eval needed for d/c plan. pt requiring min A with bed mobility but unable to stand up despite max A provided. pt has been w/c bound/bed bound for a while and exibits bilateral LE flexion contractures and weakness. pt needs 24/ care and will need supervisor intermediates care placement. At this time, pt will be seen for PT to improve overall strength and transfer ability and prevent further deconditioning. Goals Bed Mobility Goal Standby Assistance Transfer Goal Moderate Assistance Days to Meet Goals 10 Frequency of Treatment Frequency Of Treatment Once a Day Treatment Plan Physical Therapy Treatment Plan Bed Mobility Training,Transfer Training,Therapeutic Exercise ,Balance Retraining,Discharge Planning,Hot or Cold Pack, Neuromuscular Re-ed, Coordination Retraining Recommendations To Nursing Amount of Assist Needed 2 Person Assist Discharge Recommendations PT Discharge Recommendations SNF Rehab Other Discharge Recommendations will need senior care care placement Transportation Needs at Discharge Wheelchair/Cabulance,Stretcher /Ambulance
--- NOTE | 2022-03-09 16:49 | DIET.CONS2 ---
Dietary Inpatient Consultation Note Admission Date: 03/08/2022 13:55 Patient with severe malnutrition readmitted for nursing home placement. Pt with poor dental quality requesting easy chew textures from kitchen. Kitchen to send Easy Chew meals as well ask ONS Ensure Enlive bid to support nutrition status. Diet: 03/08/22 Lunch General (Regular) Diet Diet Modifications: Nutrition Percent Meal Consumed 50% 03/09/22 11:00 Percent Meal Consumed 100% 03/09/22 00:42 Percent Meal Consumed 100% 03/08/22 18:00 Electronically Signed by: Daily Huston 03/09/22 16:49 Clinical Dietitian [address] [address]
[2022-03-09 20:00] VITALS: BP 108/55; PULSE 88; RESP 16; TEMP 37.4; O2SAT 96
[2022-03-09] MEDS: OXYCODONE IR 5 MG TABLET PO (22:55)
[2022-03-10] VITALS (8 sets, daily range): BP systolic 112–121; BP diastolic 57–85; PULSE 78–92; RESP 16–96; TEMP 36.6–37.5; O2SAT 94–98
[2022-03-10] MEDS: AMPICILLIN 1,000 MG in SODIUM CHLORIDE 0.9% 100 ML 200 MG IV ×4 (02:00→21:03)
[2022-03-10] MEDS: diphenhydrAMINE 25 MG TABLET PO ×3 (03:01→22:39)
[2022-03-10] MEDS: PANTOPRAZOLE DR 20 MG TABLET PO (06:54)
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
[2022-03-10] MEDS: ENOXAPARIN 40 MG/0.4 ML SYRINGE SUBCUT (08:27)
[2022-03-10] MEDS: LACTULOSE 20 GM/30 ML SOLUTION PO (08:27)
[2022-03-10] MEDS: OXYCODONE IR 5 MG TABLET PO ×2 (08:30→22:39)
--- NOTE | 2022-03-10 11:20 | PT.IPTN ---
Current Diagnoses Urinary tract infection, site not specified (03/08/22) Physical Therapy Treatment Note M2 PT-IP Current Condition Start: 03/07/22 12:23 Freq: NEEDED Status: Active Protocol: Document 03/07/22 10:30 AB (Rec: 03/07/22 12:45 AB [id number]) Physical Therapy Current Condition Current Condition Evaluation Date 03/07/22 Treatment Diagnosis UTI; abdominal pain; generalized weakness Onset Date 03/06/22 M3 PT-IP Subjective Start: 03/07/22 12:23 Freq: NEEDED Status: Active Protocol: Document 03/10/22 11:20 AB (Rec: 03/10/22 11:59 AB [id number]) Subjective Physical Therapy Visit Type Type Treatment Note Visit Start Time 11:20 Visit Stop Time 11:40 Total Visit Minutes 20 Number of INSTRUMENT TESTER Visits 0 M4 PT-IP Mobility and Gait Start: 03/07/22 12:23 Freq: NEEDED Status: Active Protocol: Document 03/10/22 11:20 AB (Rec: 03/10/22 11:59 AB [id number]) PT-Bed Mobility Assessment Supine to Sit Supine to Sit Moderate Assistance,Head of Bed Elevated,Bedrails PT-Transfer Assessment Sit to and From Stand Sit to and from Stand Maximum Assistance,2 Person Assistance,Use of Upper Extremities Equipment Transfer Assistive Device Gait Belt,Front Wheeled Walker Orthotic/Prosthetic Devices or Brace: No Transfers Transfer Destination Chair Transfer Technique Squat Pivot Transfer Ability Level of Assist Maximum Assistance,2 Person Assistance,Use of Upper Extremities Comments Mobility Comments conducted B knee stretching to extension prior to mobility. completed supine to sit mod A and cues with HOB elevated and pt used bed rail to assist. pt sat on EOB SBA to CGA. completed sit to stand max A x 2 and max cues using fWW. very unsteady standing and heavy UE use on FWW. pt agreed to transfer to chair. completed squat pivot transfer max A x 2 and max cues with pt reaching for arm rest of chair to pivot. pt rested. agreed to stand again. completed sit to stand from the chair max A x 2 and max cues. pt sat back on the chair and positioned. Left pt with OT and OT took over pt care. M5 PT-IP Objective Assessments Start: 03/07/22 12:23 Freq: NEEDED Status: Active Protocol: Document 03/09/22 16:31 [facility] (Rec: 03/09/22 16:39 [facility] [id number]) Orientation Orientation/Cognition Level of Alertness Lethargic M6 PT-IP Treatment Start: 03/07/22 12:23 Freq: NEEDED Status: Active Protocol: Document 03/10/22 11:20 AB (Rec: 03/10/22 11:59 AB [id number]) Physical Therapy Treatment Education Education Provided Safety M7 PT-IP Assessment and Plan Start: 03/07/22 12:23 Freq: NEEDED Status: Active Protocol: Document 03/10/22 11:20 AB (Rec: 03/10/22 11:59 AB [id number]) PT Summary Assessment and Plan Potential Rehabilitation Potential Fair Summary Impairments Pain,ROM,Strength,Balance, Coordination,Sensation,Tone, Cognition,Bed Mobility, Transfers,Gait,Activity Tolerance Progress Towards Goals Slow Progress due to Pain,Slow Progress due to Medical Issues,Slow Progress due to Activity Tolerance,Slow Progress - Other Assessment Summary pt requiring max A x 2 with sit to stand and transfers. Recommending mechanical lift transfers with nursing staff. pt will require SNF rehab to improve overall strength and mobility. Goals Bed Mobility Goal Standby Assistance Transfer Goal Moderate Assistance Days to Meet Goals 10 Frequency of Treatment Frequency Of Treatment Once a Day Treatment Plan Physical Therapy Treatment Plan Bed Mobility Training,Transfer Training,Therapeutic Exercise ,Balance Retraining,Discharge Planning,Hot or Cold Pack, Neuromuscular Re-ed, Coordination Retraining Recommendations To Nursing Amount of Assist Needed Mechanical Lift Discharge Recommendations PT Discharge Recommendations SNF Rehab Other Discharge Recommendations will need intermodal dispatcher care placement Transportation Needs at Discharge Wheelchair/Cabulance,Stretcher /Ambulance
--- NOTE | 2022-03-10 11:51 | OT.IP.TRT ---
Current Diagnoses Urinary tract infection, site not specified (03/08/22) Occupational Therapy Treatment Note M2 OT-IP Current Condition Start: 03/09/22 14:19 Freq: Status: Active Protocol: Document 03/09/22 14:20 CGR (Rec: 03/09/22 14:37 CGR [id number]) Occupational Therapy Current Condition Current Condition Evaluation Date 03/09/22 Treatment Diagnosis severe protein calorie malnutrition, cirrhosis, UTI Diagnosis Onset Date 03/08/22 M3 OT- IP Subjective and Pain Start: 03/09/22 14:19 Freq: Status: Active Protocol: Document 03/10/22 11:52 CGR (Rec: 03/10/22 12:05 CGR [id number]) OT- Subjective Occupational Therapy Visit Type Type Progress Note Visit Start Time 11:19 Visit Stop Time 11:51 Total Visit Minutes 32 Notes Partial cotreat with P.T. Occupational Therapy Visit Comments Patient Comments I am going to do my best. OT Pain Assessment Pain When Pain Assessed During Mobility Pain Present Pain Present Pain Reported Location generalized Scale Used goraning etc. Pain Behaviors Calling Out,Facial Grimacing, Guarding,Holding Area,Moaning, Wincing Management Techniques Modification of Treatment,Re- positioning M4 OT- IP ADL's Start: 03/09/22 14:19 Freq: Status: Active Protocol: Document 03/10/22 11:52 CGR (Rec: 03/10/22 12:05 CGR [id number]) OT NAB-Soim-Yacufvo Comments OT Self-Feeding Comments not meal time OT ADL-Grooming General Evaluation Grooming Ability Standby Assistance Areas Needing Assistance Combing/Brushing Hair,Face Washing Comments OT Grooming Comments seated in chair at sink OT ADL-Oral Care General Eval Oral Care Ability Standby Assistance Areas of Assistance Retrieving/Set-Up of Items Comments Oral Care Comments pt used mouth wash twice while seated at sink OT ADL-Dressing General Eval Lower Body Dressing Ability Total Assistance Areas Needing Assistance Socks OT ADL-Toileting Comments OT Toileting Comments pt with azul OT ADL-Bathing Comments OT Bathing Comments not performed M5 OT- IP IADL's Start: 03/09/22 14:19 Freq: Status: Active Protocol: Document 03/09/22 14:20 CGR (Rec: 03/09/22 14:37 CGR [id number]) OT-Instrumental Activities of Daily Living Deficits IADL Deficits Identified Deficits Home Safety Awareness Awareness of Need for Assistance at Home Decreased Awareness Ability to Problem Solve Emergency Unable to Problem Solve Situations Medication Management Medication Management Comments concerns regarding pt's ability to perform safely Money Management Money Management Comments concerns regarding pt's ability to perform safely Meal Preparation Meal Preparation Comments concerns regarding pt's ability to perform safely Senior Enlisted Advisor Senior Enlisted Advisor Comments concerns regarding pt's ability to perform safely Driving Driving Comments pt does not drive M6 OT- IP Functional Cognition Start: 03/09/22 14:19 Freq: Status: Active Protocol: Document 03/09/22 14:20 CGR (Rec: 03/09/22 14:37 CGR [id number]) Cognitive Factors Limiting Selfcare Function Cognitive Ability Level of Alertness Alert Patient Orientation Name Attention Span Ability Unable to Focus,Unable to Sustain Attention Ability to Follow Commands Able to Follow One Step Commands with Increased Time, Able to Follow One Step Commands with Repetition Cognitive Comments Cognitive Assessment Comments Pt is difficult to understand at times and was unable to comprehend the idea of a squat pivot transfer. OT- Vision and Hearing OT- Hearing Assessment OT- Hearing Assessment Hearing Impaired OT- Vision Assessment Visual Attentiveness WFL Occular Pursuits WFL Visual Convergence WFL M7 OT- IP Mobility and Balance Start: 03/09/22 14:19 Freq: Status: Active Protocol: Document 03/10/22 11:52 CGR (Rec: 03/10/22 12:05 CGR [id number]) OT- Bed Mobility Assessment Supine to Sit Supine to Sit Assist Moderate Assistance Scooting Scooting to Edge of Bed Minimal Assistance OT-Transfer Assessment Sit to and From Stand Sit to and from Stand Maximum Assistance,2 Person Assistance Transfers Transfer Ability Maximum Assistance,2 Person Assistance Technique Transfer Destination Bed,Chair Transfer Technique Squat Pivot Devices Transfer Assistive Devices Gait Belt,Front Wheeled Walker Comments Mobility Comments Pt performed 2 sit to stands, one from the bed and one from the chair and also performed a stand pivot transfer from bed to chair. OT- Gait Assessment Comments Gait Ability Comments does not occur OT- Balance Assessment Sitting Balance and Reactions Static Sitting Balance Ability Fair Dynamic Sitting Balance Ability Fair M8 OT- IP Objective Assessments Start: 03/09/22 14:19 Freq: Status: Active Protocol: Document 03/09/22 14:20 CGR (Rec: 03/09/22 14:37 CGR [id number]) OT Gross Range of Motion Upper Extremity Range of Motion Assessment Bilaterally Impaired ROM Impairments AROM of the UE is limited on both shlds to 100 degrees. B knee restrictions into full extension. OT Strength Upper Extremity Strength Shoulder r 4, l 3+ Elbow 4- B Hand R 3+, L 4- OT- Coordination Assessment Comments Coordination Comments Pt declined to perform but noted spoon to mouth at lunch and able to put straw into ensure bottle and bring bottle to mouth to use straw. OT-Muscle Tone Assessment Muscle Tone WNL Yes OT Sensation Assessment Edema Edema Present Edema Comments LLe appears swollen M9 OT- IP Assessment and Plan Start: 03/09/22 14:19 Freq: Status: Active Protocol: Document 03/10/22 11:52 CGR (Rec: 03/10/22 12:05 CGR [id number]) OT Summary Assessment and Plan Potential Rehabilitation Potential Fair Analytic Complexity at Evaluation High Summary OT Impairments Pain,Range of Motion,Strength, Balance,Functional Cognition, Functional Mobility,Grooming, Dressing,Toileting,Bathing, Toilet Transfers,Shower Transfers,Activity Tolerance Progress Towards Goals Slow Progress due to Pain,Slow Progress due to Medical Issues,Slow Progress due to Activity Tolerance,Slow Progress due to Cognition Assessment Summary Pt presents as a high complexity evaluation s/p admit for severe protein calorie malnutrition, cirrhosis, and UTI. Pt is limited in his ability to move at this time d/t poor endurance and poor UE strength . Pt has flexion contractures to B knees that will prevent meaningful ambulation in the future but pt has been w/c bound for years and states that he was able to transfer from the bed to chair in the past. Pt was able to conservation coordinator semi squat position x 2 today and perform squat pivot transfer with 2 person max a. Pt then performed ADLs seated in chair. Pt left up in chair at end of session, call button within reach and all needs at time. Goals Self-Feeding Goal Independent Grooming Goal Independent Dressing Goal Independent,Athletics Director,Sock Aid Toileting Goal Independent Bathing Goal Minimal Assistance Toilet Transfer Goal Minimal Assistance Shower Transfer Goal Minimal Assistance Days to Meet Goals 45 Frequency of Treatment Frequency Of Treatment Once a Day Treatment Plan OT Treatment Plan ADL Training,Functional Cognition Training,Functional Mobility,Patient/Family Education,Discharge Planning Other Treatment Recommendations and Next ADLs seated EOB, UE therex Treatment Focus Discharge Recommendations OT Discharge Recommendations LTAC Transportation Needs at Discharge Stretcher/Ambulance
--- NOTE | 2022-03-10 14:48 | CM.DPNOTE ---
DCP Note Patient unfortunately does not have MCR at this time, confirmed now by multiple sources. This greatly limits SNF placement options. Patient's OVIDIO is currently inactive. Completed the [facility] [employer] [facility] gina with patient today, he signed and this EDI DEVELOPER faxed with [employer] gina attached - request for expedited review- to [facility]. Requested review for in home caregiving ([facility]). Patient agreeable to this. Patient reports he was at an [facility] and SNF in the past which were paid for by the state details vague but patient had decided to return home Spoke with Cheryl MS social work manager P [phone] ext [phone] who explained that patient is 0% service connected and so does not have a VA SNF benefit, neither SNF rehab or [facility]. If patient is returning home, she can ask that patient's [facility] provider place a referral for the aid and attendance program Cheryl suggested patient contact Lauren Franklin MS P [phone] who is a case reviewer that has been attempting contact w/patient to arrange addtl services Reviewed above with patient and he hopes to return home w/friends to assist, states he would agree to the [facility] helping with in home caregivers. Patient A+O throughout our visits today; patient knows his address, SS# and finances. Patient repeats himself often and thought process is tangential, patient also with some paranoid thinking. Patient able to communicate his needs, compliant and responds appropriately to questions. Plan: Expect patient will likely return home w/friends. Need to discuss this with patient and secure any outpatient services that are available (see previous EDI DEVELOPER notes), LTC gina faxed today for [facility] in home care which is what patient is agreeable to at this time. Transport (?) CM team following closely for coordination of the safest plan available to patient at this time ALISHA Chavez
[2022-03-10] MEDS: SENNOSIDES 8.6 MG TABLET 17.2 MG PO (21:03)
[2022-03-11] MEDS: AMPICILLIN 1,000 MG in SODIUM CHLORIDE 0.9% 100 ML 200 MG IV ×4 (02:08→20:06)
[2022-03-11 02:54] VITALS: BP 119/68; PULSE 87; RESP 17; TEMP 37.2; O2SAT 94
[2022-03-11] MEDS: PANTOPRAZOLE DR 20 MG TABLET PO (07:10)
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
[2022-03-11 08:00] VITALS: BP 109/69; PULSE 83; RESP 17; TEMP 37; O2SAT 95
[2022-03-11] MEDS: LACTULOSE 20 GM/30 ML SOLUTION PO (08:57)
[2022-03-11] MEDS: ENOXAPARIN 40 MG/0.4 ML SYRINGE SUBCUT (08:57)
[2022-03-11] MEDS: SENNOSIDES 8.6 MG TABLET 17.2 MG PO (08:57)
[2022-03-11 11:56] VITALS: BP 116/71; PULSE 86; RESP 17; TEMP 37.2; O2SAT 97
--- NOTE | 2022-03-11 12:34 | OT.IP.TRT ---
Current Diagnoses Urinary tract infection, site not specified (03/08/22) Occupational Therapy Treatment Note M2 OT-IP Current Condition Start: 03/09/22 14:19 Freq: Status: Active Protocol: Document 03/09/22 14:20 CGR (Rec: 03/09/22 14:37 CGR [id number]) Occupational Therapy Current Condition Current Condition Evaluation Date 03/09/22 Treatment Diagnosis severe protein calorie malnutrition, cirrhosis, UTI Diagnosis Onset Date 03/08/22 M3 OT- IP Subjective and Pain Start: 03/09/22 14:19 Freq: Status: Active Protocol: Document 03/11/22 13:04 CCC (Rec: 03/11/22 13:21 CCC [id number]) OT- Subjective Occupational Therapy Visit Type Type Treatment Note Visit Start Time 12:00 Visit Stop Time 12:34 Total Visit Minutes 34 Occupational Therapy Visit Comments Patient Comments Pt agreed to get up. Patient/Caregiver Goals Pt wanting to be able to straighten his legs out. OT Pain Assessment Pain When Pain Assessed During Mobility Pain Present Pain Present Pain Reported M4 OT- IP ADL's Start: 03/09/22 14:19 Freq: Status: Active Protocol: Document 03/11/22 13:04 CCC (Rec: 03/11/22 13:21 CCC [id number]) OT [id number] General Evaluation Self-Feeding Ability Standby Assistance Comments OT Self-Feeding Comments Pt needing assist for set-up. OT ADL-Grooming Comments OT Grooming Comments Pt refused. OT ADL-Oral Care Comments Oral Care Comments Pt refused. OT ADL-Dressing General Eval Lower Body Dressing Ability Total Assistance Comments OT Dressing Comments Total assist for all LB dressing needs. OT ADL-Toileting General Evaluation Toileting Ability Total Assistance Areas Needing Assistance Empty Catheter or Colostomy OT ADL-Bathing Comments OT Bathing Comments Sponge bath more appropriate at this time. M5 OT- IP IADL's Start: 03/09/22 14:19 Freq: Status: Active Protocol: Document 03/09/22 14:20 CGR (Rec: 03/09/22 14:37 CGR [id number]) OT-Instrumental Activities of Daily Living Deficits IADL Deficits Identified Deficits Home Safety Awareness Awareness of Need for Assistance at Home Decreased Awareness Ability to Problem Solve Emergency Unable to Problem Solve Situations Medication Management Medication Management Comments concerns regarding pt's ability to perform safely Money Management Money Management Comments concerns regarding pt's ability to perform safely Meal Preparation Meal Preparation Comments concerns regarding pt's ability to perform safely Basting Marker Basting Marker Comments concerns regarding pt's ability to perform safely Driving Driving Comments pt does not drive M6 OT- IP Functional Cognition Start: 03/09/22 14:19 Freq: Status: Active Protocol: Document 03/11/22 13:04 [facility] (Rec: 03/11/22 13:21 [facility] [id number]) Cognitive Factors Limiting Selfcare Function Cognitive Ability Level of Alertness Alert Patient Orientation Name,Age,Month,Date,Year,Place ,Situation Attention Span Ability Capable of Focused Attention, Capable of Sustained Attention Ability to Follow Commands Able to Follow One Step Commands Memory Description Short Term Impaired,Working Impaired Problem Solving Ability Needs Assist to Identify Solutions Executive Function Ability Unable to Remember Details Cognitive Tests SLUMS Pt scored 17/30, however score may be a little higher as pt on some items not attempting to complete. Pt not able to calculate 100-23, only able to name 1 animal before quitting , able to recall 4/5 objects after time passed, not able to recall 4 digit number backwards, and able to answer 3/4 questions right after time paragraph read. Pt score implies dementia. Cognitive Comments Cognitive Assessment Comments Pt able to follow commands appropriately for bed mobility and cognitive assessment. M7 OT- IP Mobility and Balance Start: 03/09/22 14:19 Freq: Status: Active Protocol: Document 03/11/22 13:04 [facility] (Rec: 03/11/22 13:21 [facility] [id number]) OT- Bed Mobility Assessment Supine to Sit Supine to Sit Assist Moderate Assistance Scooting Scooting to Edge of Bed Standby Assistance OT-Transfer Assessment Sit to and From Stand Sit to and from Stand Maximum Assistance,2 Person Assistance Transfers Transfer Ability Total Assistance,2 Person Assistance Technique Transfer Destination Bed,Chair Transfer Technique Squat Pivot Devices Transfer Assistive Devices Gait Belt Comments Mobility Comments MODA for bed mobility and able to come to stand to the FWW with MAX AX 2 and dependent x2 for squat pivot to the recliner. Pt to use juliane with nursing staff. OT- Balance Assessment Sitting Balance and Reactions Static Sitting Balance Ability Fair Dynamic Sitting Balance Ability Fair M8 OT- IP Objective Assessments Start: 03/09/22 14:19 Freq: Status: Active Protocol: Document 03/09/22 14:20 CGR (Rec: 03/09/22 14:37 CGR [id number]) OT Gross Range of Motion Upper Extremity Range of Motion Assessment Bilaterally Impaired ROM Impairments AROM of the UE is limited on both shlds to 100 degrees. B knee restrictions into full extension. OT Strength Upper Extremity Strength Shoulder r 4, l 3+ Elbow 4- B Hand R 3+, L 4- OT- Coordination Assessment Comments Coordination Comments Pt declined to perform but noted spoon to mouth at lunch and able to put straw into ensure bottle and bring bottle to mouth to use straw. OT-Muscle Tone Assessment Muscle Tone WNL Yes OT Sensation Assessment Edema Edema Present Edema Comments LLe appears swollen M9 OT- IP Assessment and Plan Start: 03/09/22 14:19 Freq: Status: Active Protocol: Document 03/11/22 13:04 [facility] (Rec: 03/11/22 13:21 [facility] [id number]) OT Summary Assessment and Plan Potential Rehabilitation Potential Fair Analytic Complexity at Evaluation High Summary OT Impairments Pain,Range of Motion,Strength, Balance,Functional Cognition, Functional Mobility,Grooming, Dressing,Toileting,Bathing, Toilet Transfers,Shower Transfers,Activity Tolerance Progress Towards Goals Slow Progress due to Pain,Slow Progress due to Medical Issues,Slow Progress due to Activity Tolerance,Slow Progress due to Cognition Assessment Summary Pt agreeable to do transfer to the recliner squat pivot and dependent x2. Pt at this time would be best to go to LTC. To try to optimize pt's level of care as pt may have to go home. Goals Self-Feeding Goal Independent Grooming Goal Independent Dressing Goal Minimal Assistance,Shoe Handler, Sock Aid Toileting Goal Moderate Assistance Bathing Goal Moderate Assistance Toilet Transfer Goal Moderate Assistance Shower Transfer Goal Moderate Assistance Days to Meet Goals 45 Frequency of Treatment Frequency Of Treatment Once a Day Treatment Plan OT Treatment Plan ADL Training,Functional Cognition Training,Functional Mobility,Patient/Family Education,Discharge Planning Other Treatment Recommendations and Next ADLs seated EOB, UE therex Treatment Focus Discharge Recommendations OT Discharge Recommendations LTAC Transportation Needs at Discharge Stretcher/Ambulance
--- NOTE | 2022-03-11 12:54 | PT.IPTN ---
Current Diagnoses Urinary tract infection, site not specified (03/08/22) Physical Therapy Treatment Note M2 PT-IP Current Condition Start: 03/07/22 12:23 Freq: NEEDED Status: Active Protocol: Document 03/07/22 10:30 AB (Rec: 03/07/22 12:45 AB [id number]) Physical Therapy Current Condition Current Condition Evaluation Date 03/07/22 Treatment Diagnosis UTI; abdominal pain; generalized weakness Onset Date 03/06/22 M3 PT-IP Subjective Start: 03/07/22 12:23 Freq: NEEDED Status: Active Protocol: Document 03/11/22 12:38 LJ (Rec: 03/11/22 12:54 LJ [id number]) Subjective Physical Therapy Visit Type Type Treatment Note Visit Start Time 12:14 Visit Stop Time 12:34 Total Visit Minutes 20 Notes Co-TX with OT Number of EXPERIMENTAL OUTBOARD MOTORS MECHANIC Visits 1 Physical Therapy Visit Comments Patient Comments Willing to get up to the chair Therapy Pain Assessment Pain When Pain Assessed During Mobility Pain Present Pain Present Pain Reported Location generalized Scale Used Valenzuela-Carrillo (Faces) Pain Behaviors Calling Out M4 PT-IP Mobility and Gait Start: 03/07/22 12:23 Freq: NEEDED Status: Active Protocol: Document 03/11/22 12:38 LJ (Rec: 03/11/22 12:54 LJ [id number]) PT-Bed Mobility Assessment Supine to Sit Supine to Sit Moderate Assistance,Head of Bed Elevated,Bedrails Scooting Scooting to Edge of Bed Contact Guard Assistance PT-Transfer Assessment Sit to and From Stand Sit to and from Stand Maximum Assistance,2 Person Assistance,Use of Upper Extremities Equipment Transfer Assistive Device Gait Belt,Front Wheeled Walker Orthotic/Prosthetic Devices or Brace: No Transfers Transfer Destination Chair Transfer Technique Squat Pivot Transfer Ability Level of Assist Maximum Assistance,2 Person Assistance,Use of Upper Extremities Comments Mobility Comments BP 115/73 at rest oin bed. Conducted B knee stretching to extension while lying in bed prior to mobility. Pt completed supine to sit ModA x1 with cues. HOB elevated and pt used bed rail to assist. Pt able to sit on EOB CGA-SBA. Completed sit<>stand MaxA x 2 and max cues using FWW. Pt very unsteady standing and heavy UE use on FWW. Unable to stand longer than a few seconds then sat heavily back on bed. Pt agreed to squat pivot transfer to chair. Completed squat pivot transfer MaxA x 2 and max cues with pt reaching for arm rest of chair to pivot. pt restedPt sat in chair c/o pain in LEs. Cushion placed under feet. BP 102/68. Pt rested several minutes then BP 109/68. Nsg entered with food tray. Pt agreed to sit in chair for lunch then juliane back to bed. Chair alarm on. Nsg in room changing bed. M5 PT-IP Objective Assessments Start: 03/07/22 12:23 Freq: NEEDED Status: Active Protocol: Document 03/09/22 16:31 SAK (Rec: 03/09/22 16:39 SAK [id number]) Orientation Orientation/Cognition Level of Alertness Lethargic M6 PT-IP Treatment Start: 03/07/22 12:23 Freq: NEEDED Status: Active Protocol: Document 03/11/22 12:38 LJ (Rec: 03/11/22 12:54 LJ [id number]) Physical Therapy Treatment Exercises Exercises Ankle Pumps,Heel Slides,Short Arc Quads M7 PT-IP Assessment and Plan Start: 03/07/22 12:23 Freq: NEEDED Status: Active Protocol: Document 03/11/22 12:38 LJ (Rec: 03/11/22 12:54 LJ [id number]) PT Summary Assessment and Plan Potential Rehabilitation Potential Fair Summary Impairments Pain,ROM,Strength,Balance, Coordination,Sensation,Tone, Cognition,Bed Mobility, Transfers,Gait,Activity Tolerance Progress Towards Goals Slow Progress due to Pain,Slow Progress due to Medical Issues,Slow Progress due to Activity Tolerance,Slow Progress - Other Assessment Summary pt requiring max A x 2 with sit to stand and transfers. Recommending mechanical lift transfers with nursing staff. pt will require SNF rehab to improve overall strength and mobility. Goals Bed Mobility Goal Standby Assistance Transfer Goal Moderate Assistance Days to Meet Goals 10 Frequency of Treatment Frequency Of Treatment Once a Day Treatment Plan Physical Therapy Treatment Plan Bed Mobility Training,Transfer Training,Therapeutic Exercise ,Balance Retraining,Discharge Planning,Hot or Cold Pack, Neuromuscular Re-ed, Coordination Retraining Recommendations To Nursing Amount of Assist Needed Mechanical Lift Discharge Recommendations PT Discharge Recommendations SNF Rehab Other Discharge Recommendations will need district supervisor care placement Transportation Needs at Discharge Wheelchair/Cabulance,Stretcher /Ambulance
--- NOTE | 2022-03-11 12:55 | PT.IPTN ---
Current Diagnoses Urinary tract infection, site not specified (03/08/22) Physical Therapy Treatment Note M2 PT-IP Current Condition Start: 03/07/22 12:23 Freq: NEEDED Status: Active Protocol: Document 03/07/22 10:30 AB (Rec: 03/07/22 12:45 AB [id number]) Physical Therapy Current Condition Current Condition Evaluation Date 03/07/22 Treatment Diagnosis UTI; abdominal pain; generalized weakness Onset Date 03/06/22 M3 PT-IP Subjective Start: 03/07/22 12:23 Freq: NEEDED Status: Active Protocol: Document 03/11/22 12:38 LJ (Rec: 03/11/22 12:54 LJ [id number]) Subjective Physical Therapy Visit Type Type Treatment Note Visit Start Time 12:14 Visit Stop Time 12:34 Total Visit Minutes 20 Notes Co-TX with OT Number of RITUAL CIRCUMCISER Visits 1 Physical Therapy Visit Comments Patient Comments Willing to get up to the chair Therapy Pain Assessment Pain When Pain Assessed During Mobility Pain Present Pain Present Pain Reported Location generalized Scale Used Valenzuela-Carrillo (Faces) Pain Behaviors Calling Out M4 PT-IP Mobility and Gait Start: 03/07/22 12:23 Freq: NEEDED Status: Active Protocol: Document 03/11/22 12:38 LJ (Rec: 03/11/22 12:54 LJ [id number]) PT-Bed Mobility Assessment Supine to Sit Supine to Sit Moderate Assistance,Head of Bed Elevated,Bedrails Scooting Scooting to Edge of Bed Contact Guard Assistance PT-Transfer Assessment Sit to and From Stand Sit to and from Stand Maximum Assistance,2 Person Assistance,Use of Upper Extremities Equipment Transfer Assistive Device Gait Belt,Front Wheeled Walker Orthotic/Prosthetic Devices or Brace: No Transfers Transfer Destination Chair Transfer Technique Squat Pivot Transfer Ability Level of Assist Maximum Assistance,2 Person Assistance,Use of Upper Extremities Comments Mobility Comments BP 115/73 at rest oin bed. Conducted B knee stretching to extension while lying in bed prior to mobility. Pt completed supine to sit ModA x1 with cues. HOB elevated and pt used bed rail to assist. Pt able to sit on EOB CGA-SBA. Completed sit<>stand MaxA x 2 and max cues using FWW. Pt very unsteady standing and heavy UE use on FWW. Unable to stand longer than a few seconds then sat heavily back on bed. Pt agreed to squat pivot transfer to chair. Completed squat pivot transfer MaxA x 2 and max cues with pt reaching for arm rest of chair to pivot. pt restedPt sat in chair c/o pain in LEs. Cushion placed under feet. BP 102/68. Pt rested several minutes then BP 109/68. Nsg entered with food tray. Pt agreed to sit in chair for lunch then juliane back to bed. Chair alarm on. Nsg in room changing bed. M5 PT-IP Objective Assessments Start: 03/07/22 12:23 Freq: NEEDED Status: Active Protocol: Document 03/09/22 16:31 SAK (Rec: 03/09/22 16:39 SAK [id number]) Orientation Orientation/Cognition Level of Alertness Lethargic M6 PT-IP Treatment Start: 03/07/22 12:23 Freq: NEEDED Status: Active Protocol: Document 03/11/22 12:38 LJ (Rec: 03/11/22 12:54 LJ [id number]) Physical Therapy Treatment Exercises Exercises Ankle Pumps,Heel Slides,Short Arc Quads M7 PT-IP Assessment and Plan Start: 03/07/22 12:23 Freq: NEEDED Status: Active Protocol: Document 03/11/22 12:38 LJ (Rec: 03/11/22 12:54 LJ [id number]) PT Summary Assessment and Plan Potential Rehabilitation Potential Fair Summary Impairments Pain,ROM,Strength,Balance, Coordination,Sensation,Tone, Cognition,Bed Mobility, Transfers,Gait,Activity Tolerance Progress Towards Goals Slow Progress due to Pain,Slow Progress due to Medical Issues,Slow Progress due to Activity Tolerance,Slow Progress - Other Assessment Summary pt requiring max A x 2 with sit to stand and transfers. Recommending mechanical lift transfers with nursing staff. pt will require SNF rehab to improve overall strength and mobility. Goals Bed Mobility Goal Standby Assistance Transfer Goal Moderate Assistance Days to Meet Goals 10 Frequency of Treatment Frequency Of Treatment Once a Day Treatment Plan Physical Therapy Treatment Plan Bed Mobility Training,Transfer Training,Therapeutic Exercise ,Balance Retraining,Discharge Planning,Hot or Cold Pack, Neuromuscular Re-ed, Coordination Retraining Recommendations To Nursing Amount of Assist Needed Mechanical Lift Discharge Recommendations PT Discharge Recommendations SNF Rehab Other Discharge Recommendations will need intermediate teacher care placement Transportation Needs at Discharge Wheelchair/Cabulance,Stretcher /Ambulance
[2022-03-11] MEDS: diphenhydrAMINE 25 MG TABLET PO (13:01)
--- NOTE | 2022-03-11 13:40 | CM.DPC ---
Addendum entered by ALISHA Larkin 03/11/22 14:11: ADD: Spoke to Hilary at [facility] and confirmed they cannot accept pt's [facility] since he does not have Medicare and also still waiting to confirm he is approved for Medicaid. BF Original Note: DCP Cont: Per MD, pt still getting IV-Abx and likely course will be done Fri and could be medically stable by that time. VERÓNICA discussed the barriers to placement other than home at this time. VERÓNICA met bedside with pt and APS worker Carmen ([phone]) who is filling in while assigned APS Aggie is out for a week on vacation and updated LUDY Morales on the contact names and numbers for pt's Payee [place], [facility] Cheryl, and that Medicaid LTC application and Expedited referral had been completed and submitted yesterday 03/10/22. APS aware now also that pt only has [facility] and 0% service connected and no SNF benefits and does not have Medicare and just submitted Medicaid application and therefore pt likely will d/c home while awaiting HCS assessment for LTC for either ORA support in home or placement at a facility for LTC. LUDY Morales requests clinicals be faxed to APS at fax [phone] and SW faxed requested clinicals to review. VERÓNICA called pt's [facility] Luna [phone] and left msg updating her that pt will likely have to d/c home while awaiting HCS assessment and requested pt's [facility] provider make the referral for aid and attendance program as she had mentioned previously. Per OT, attempted SLUMS for brief cog assessment with pt today and currently pt scored 17/30 on SLUMS. SW made [facility] referral again as previously referred last admission a couple weeks ago and pt had declined their services once home. VERÓNICA faxed clinicals to review and completed F2F but F2F not yet faxed. BLS form completed for likely need of BLS transport at d/c to home and MD needs to sign prior to discharge and SW attached supporting documents for reason why BLS transport needed. Plan: SW to follow closely for Medicaid LTC application to be uploaded into the system towards Expedited HCS refereral for LTC support. SW to follow for likely plan of home with new [facility] referral made and ongoing involvement from APS towards getting pt resources and LTC plan in place. ALISHA Larkin
[2022-03-11 15:00] VITALS: BP 129/76; PULSE 84; RESP 17; TEMP 37.5; O2SAT 95
--- NOTE | 2022-03-11 15:30 | CM.DPNOTE ---
VERÓNICA received a call from Mague, who is a co-responder with the [employer] [phone], stating she responded to pt's home and made the second APS referral and states she just spoke to LUDY Morales who was bedside today and Mague was given the update from APS that pt may d/c home today or tomorrow. VERÓNICA updated Mague on the barriers to any placement from the hospital (no Medicare, no Medicaid, 0% service connected from [facility]) and medicaid process now in the works and pt may need to d/c home while awaiting HCS assessment for LTC. Mague states she does not feel this is a safe discharge plan and likely they will be called to the house again and she would likely then need to contact Dept of Health about an unsafe d/c plan to home. She is aware of the challenges and would like to be kept updated. ALISHA Larkin
[2022-03-11 20:00] VITALS: BP 121/71; PULSE 83; RESP 20; TEMP 36.6; O2SAT 97
[2022-03-11] MEDS: SODIUM CHLORIDE 0.9% FLUSH 10 ML IV (22:14)
[2022-03-12] VITALS (7 sets, daily range): BP systolic 103–127; BP diastolic 67–78; PULSE 79–86; RESP 17–20; TEMP 36.6–37.6; O2SAT 95–97
[2022-03-12] MEDS: AMPICILLIN 1,000 MG in SODIUM CHLORIDE 0.9% 100 ML 200 MG IV ×2 (01:32→07:58)
[2022-03-12] MEDS: SODIUM CHLORIDE 0.9% FLUSH 10 ML IV ×3 (02:20→21:22)
[2022-03-12] MEDS: PANTOPRAZOLE DR 20 MG TABLET PO (05:20)
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
[2022-03-12] MEDS: ENOXAPARIN 40 MG/0.4 ML SYRINGE SUBCUT (09:21)
--- NOTE | 2022-03-12 12:53 | OT.IPNOTE ---
Attempted to see pt for OT treatment, pt refused as stating that he has to burp and fart. Pt requesting to have therapist lower his bed down. Therapist initially assist to help lower head with the remote and then gave pt the remote to do it himself. Pt refusing and not willing to try. To attempt to see pt tomorrow and see it pt is appropriate to continue to be seen as at this time as pt is more appropriate for LTC.
[2022-03-12] MEDS: ONDANSETRON 4 MG ODT PO (13:06)
--- NOTE | 2022-03-12 14:51 | CM.DPNOTE ---
DCP Note Patient discussed in multi disciplinary rounds. Dr Moncada does not feel patient's discharge home today is an appropriate plan. Updated team that conversation held with Allison huizar/erik ARGUETA this morning and patient will not be accepted on to their service. Needs are currently too high for HH team According to conversation with [facility] [phone] ext [phone], patient can access a 32 day Medicaid bridge SNF [place] in which [place] can authorize a SNF stay at a [place] contracted facility, as long as patient has skilled rehab need, until Medicaid is active Cheryl indicated she cannot accept faxed (fax is down) or emailed ([place] not have a secure email ) clinical to review for SNF auth so reviewed clinical information and therapy evals over the phone. Cheryl provided the following [place] contracted SNF list by phone: [facility], [facility], [facility], [facility], [facility], [facility], [facility] Discussed with patient. He is agreeable to short SNF stay and continues to anticipate returning home w/friends to assist, hopefully w/[facility] in home fire alarm installer once [facility] is in place Referrals faxed to above listed facilities. Will plan communication with ea of these facilities. ALISHA Chavez
--- NOTE | 2022-03-12 16:56 | PT.IPTN ---
Current Diagnoses Urinary tract infection, site not specified (03/08/22) Physical Therapy Treatment Note M2 PT-IP Current Condition Start: 03/07/22 12:23 Freq: NEEDED Status: Active Protocol: Document 03/12/22 16:24 SP (Rec: 03/12/22 18:38 SP [id number]) Physical Therapy Current Condition Current Condition Evaluation Date 03/07/22 Treatment Diagnosis UTI; abdominal pain; generalized weakness Onset Date 03/06/22 M3 PT-IP Subjective Start: 03/07/22 12:23 Freq: NEEDED Status: Active Protocol: Document 03/12/22 16:24 SP (Rec: 03/12/22 18:38 SP [id number]) Subjective Physical Therapy Visit Type Type Treatment Note Visit Start Time 16:24 Visit Stop Time 16:56 Total Visit Minutes 32 Notes PT Aide provided 2nd person physical assist required throughout tx Number of SLICE CUTTING MACHINE OPERATOR HELPER Visits 2 Physical Therapy Visit Comments Patient Comments Pt agreeable to mobilizing to chair. Therapy Pain Assessment Pain When Pain Assessed During Mobility Pain Present Pain Present Pain Reported Location generalized Scale Used Valenzuela-Carrillo (Faces) Description Burning,Pulling,Tightness,With Movement Pain Behaviors Facial Grimacing,Holding Area, Restlessness Pain Management Techniques Distraction,Modification of Treatment,Re-positioning M4 PT-IP Mobility and Gait Start: 03/07/22 12:23 Freq: NEEDED Status: Active Protocol: Document 03/12/22 16:24 SP (Rec: 03/12/22 18:38 SP [id number]) PT-Bed Mobility Assessment Rolling Type of Rolling Log Rolling,Roll to Left Level of Assist Standby Assistance Supine to Sit Supine to Sit Moderate Assistance,Maximum Assistance,2 Person Assistance ,Head of Bed Elevated,Bedrails Scooting Scooting to Edge of Bed Contact Guard Assistance, Minimal Assistance PT-Transfer Assessment Sit to and From Stand Sit to and from Stand Maximum Assistance,2 Person Assistance,Use of Upper Extremities Equipment Transfer Assistive Device Gait Belt,Front Wheeled Walker Orthotic/Prosthetic Devices or Brace: No Transfers Transfer Destination Chair Transfer Technique Squat Pivot Transfer Ability Level of Assist Maximum Assistance,2 Person Assistance,Use of Upper Extremities Comments Mobility Comments supine: BP 108/71 HR 82 SaO2 99% on RA. SLICE CUTTING MACHINE OPERATOR HELPER instructed LE extension AROM best can hold 5 sec x2 reps each LE, approx 30 deg flexion, glut set and able lift with little support therapist to don nonskid socks . completed LR L self use bed rails, elevated supine>sit Mod A x2 support pt pulled from PT Aide hand and SLICE CUTTING MACHINE OPERATOR HELPER provided trunk righting support to come to sit, CG/ Min A scoot EOB with BUE WB on bed. Unable come to stand, completed SPT bed>chair 45 deg angle Max A x2. SLICE CUTTING MACHINE OPERATOR HELPER instructed LAQ x5 reps BLE in chair for pre mobility standing. completed STS Max A x3 w/ FWW, best allow pt push down pressure on FWW, x3 reps: 8sec, 10 sec, 15 sec with cues upright posturing, straight LEs. Haro Weee, this is good. Pt reported tired and wanted to stay up in chair . SLICE CUTTING MACHINE OPERATOR HELPER modified elevation BLEs with pillow under pt ok with little LE extension stretching support. SLICE CUTTING MACHINE OPERATOR HELPER donned chair alarm, call light and provided all needs in reach. SLICE CUTTING MACHINE OPERATOR HELPER ed continue AP, knee extension for self AROM for allowance standing. Gait Assessment Comments Gait Comments unable; patient reports he hasn't ambulated in years but wants to get back to better transfers. PT-Balance Assessment Sitting Balance and Reactions Static Sitting Balance Ability Good Dynamic Sitting Balance Ability Fair Standing Balance and Reactions Static Standing Balance Ability Poor Device Used FWW M5 PT-IP Objective Assessments Start: 03/07/22 12:23 Freq: NEEDED Status: Active Protocol: Document 03/09/22 16:31 SAK (Rec: 03/09/22 16:39 SAK [id number]) Orientation Orientation/Cognition Level of Alertness Lethargic M6 PT-IP Treatment Start: 03/07/22 12:23 Freq: NEEDED Status: Active Protocol: Document 03/12/22 16:24 SP (Rec: 03/12/22 18:38 SP [id number]) Physical Therapy Treatment Exercises Exercises Ankle Pumps,Gluteal Sets,Heel Slides,Short Arc Quads,Seated Knee Flexion/Extension Knee ROM Measurement approx 30 deg extension AROM. Education Education Provided Safety M7 PT-IP Assessment and Plan Start: 03/07/22 12:23 Freq: NEEDED Status: Active Protocol: Document 03/12/22 16:24 SP (Rec: 03/12/22 18:38 SP [id number]) PT Summary Assessment and Plan Potential Rehabilitation Potential Fair Status of Condition at Evaluation Evolving Summary Impairments Pain,ROM,Strength,Balance, Coordination,Sensation,Tone, Cognition,Bed Mobility, Transfers,Gait,Activity Tolerance Progress Towards Goals Slow Progress due to Pain,Slow Progress due to Activity Tolerance,Slow Progress - Other Assessment Summary Pt requiring Mod/Max A x2 bed mob, Max A STS w/ FWW. squat pivot transfer heavy Max A x2. Recommending continue Khloe with nursing. Goals Bed Mobility Goal Standby Assistance Transfer Goal Moderate Assistance Days to Meet Goals 10 Frequency of Treatment Frequency Of Treatment Once a Day Treatment Plan Physical Therapy Treatment Plan Bed Mobility Training,Transfer Training,Therapeutic Exercise ,Balance Retraining,Discharge Planning,Hot or Cold Pack, Neuromuscular Re-ed, Coordination Retraining Other Recommendations and Next Treatment pre mobility LE extension AROM Focus /AAROM, bed mob, transfers: squat pivot, STS, SPT if able w/ FWW. Recommendations To Nursing Amount of Assist Needed Mechanical Lift Discharge Recommendations PT Discharge Recommendations SNF Rehab Other Discharge Recommendations will need longterm care placement Transportation Needs at Discharge Wheelchair/Cabulance
[2022-03-13 00:05] VITALS: BP 115/68; PULSE 89; RESP 19; TEMP 36.6; O2SAT 96
[2022-03-13] MEDS: OXYCODONE IR 5 MG TABLET PO ×2 (02:33→21:44)
[2022-03-13 04:39] VITALS: BP 99/55; PULSE 90; RESP 21; TEMP 37.2; O2SAT 91
[2022-03-13] MEDS: PANTOPRAZOLE DR 20 MG TABLET PO (05:53)
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
[2022-03-13 08:00] VITALS: BP 108/73; PULSE 80; RESP 20; TEMP 36.8; O2SAT 94
--- NOTE | 2022-03-13 08:22 | PC.NURSE ---
Addendum entered by Luiz Ramirez R.N. 03/13/22 18:34: Stood Pt from sitting position in chair. Pivoted Pt to bed. 2 person max assist. Tolerated relatively well. Followed commands , settled to bed and repositioned. Original Note: Pt alert, follows commands, states concerns appropriately. Restful in bed at present.
[2022-03-13] MEDS: ENOXAPARIN 40 MG/0.4 ML SYRINGE SUBCUT (09:04)
[2022-03-13] MEDS: SENNOSIDES 8.6 MG TABLET 17.2 MG PO ×2 (09:04→21:30)
[2022-03-13] MEDS: SODIUM CHLORIDE 0.9% FLUSH 10 ML IV (09:06)
[2022-03-13 12:00] VITALS: BP 102/60; PULSE 84; RESP 20; TEMP 36.9; O2SAT 91
--- NOTE | 2022-03-13 14:15 | OT.IP.TRT ---
Current Diagnoses Urinary tract infection, site not specified (03/08/22) Occupational Therapy Treatment Note M2 OT-IP Current Condition Start: 03/09/22 14:19 Freq: Status: Active Protocol: Document 03/09/22 14:20 CGR (Rec: 03/09/22 14:37 CGR [id number]) Occupational Therapy Current Condition Current Condition Evaluation Date 03/09/22 Treatment Diagnosis severe protein calorie malnutrition, cirrhosis, UTI Diagnosis Onset Date 03/08/22 M3 OT- IP Subjective and Pain Start: 03/09/22 14:19 Freq: Status: Active Protocol: Document 03/13/22 14:23 CCC (Rec: 03/13/22 14:37 [facility] [id number]) OT- Subjective Occupational Therapy Visit Type Type Treatment Note Visit Start Time 09:25 Visit Stop Time 14:18 Total Visit Minutes 41 Notes Pt seen for split treatment [id number] and [id number]. Occupational Therapy Visit Comments Patient Comments Pt seen for gentle stretching to left internal rotators of left arm in AM and seen with SENIOR TELECOMMUNICATIONS ENGINEER for trial of sit to stander. COntinue to suggest use of juliane for nursing until able to train nursing on sit to stander safety and use. Patient/Caregiver Goals Pt wanting to be able to straighten his legs out. OT Pain Assessment Pain When Pain Assessed During Mobility Pain Present Pain Present Pain Reported M4 OT- IP ADL's Start: 03/09/22 14:19 Freq: Status: Active Protocol: Document 03/11/22 13:04 [facility] (Rec: 03/11/22 13:21 [facility] [id number]) OT JBT-Nuca-Putrefc General Evaluation Self-Feeding Ability Standby Assistance Comments OT Self-Feeding Comments Pt needing assist for set-up. OT ADL-Grooming Comments OT Grooming Comments Pt refused. OT ADL-Oral Care Comments Oral Care Comments Pt refused. OT ADL-Dressing General Eval Lower Body Dressing Ability Total Assistance Comments OT Dressing Comments Total assist for all LB dressing needs. OT ADL-Toileting General Evaluation Toileting Ability Total Assistance Areas Needing Assistance Empty Catheter or Colostomy OT ADL-Bathing Comments OT Bathing Comments Sponge bath more appropriate at this time. M5 OT- IP IADL's Start: 03/09/22 14:19 Freq: Status: Active Protocol: Document 03/09/22 14:20 CGR (Rec: 03/09/22 14:37 CGR [id number]) OT-Instrumental Activities of Daily Living Deficits IADL Deficits Identified Deficits Home Safety Awareness Awareness of Need for Assistance at Home Decreased Awareness Ability to Problem Solve Emergency Unable to Problem Solve Situations Medication Management Medication Management Comments concerns regarding pt's ability to perform safely Money Management Money Management Comments concerns regarding pt's ability to perform safely Meal Preparation Meal Preparation Comments concerns regarding pt's ability to perform safely Sanitary Chemist Sanitary Chemist Comments concerns regarding pt's ability to perform safely Driving Driving Comments pt does not drive M6 OT- IP Functional Cognition Start: 03/09/22 14:19 Freq: Status: Active Protocol: Document 03/13/22 14:23 [facility] (Rec: 03/13/22 14:37 [facility] [id number]) Cognitive Factors Limiting Selfcare Function Cognitive Comments Cognitive Assessment Comments Pt able to follow commands but at times needing encouragement as initially pt states I can't for trying to rub lotion on his legs and then after putting his left hand on his leg able to assist . M7 OT- IP Mobility and Balance Start: 03/09/22 14:19 Freq: Status: Active Protocol: Document 03/13/22 14:23 [facility] (Rec: 03/13/22 14:37 [facility] [id number]) OT- Bed Mobility Assessment Supine to Sit Supine to Sit Assist Minimal Assistance,Bedrails Scooting Scooting Up and Down in Bed Maximum Assistance,2 Person Assistance OT-Transfer Assessment Sit to and From Stand Sit to and from Stand Total Assistance Transfers Transfer Ability Total Assistance,2 Person Assistance Technique Transfer Destination Bed,Chair Transfer Technique Mechanical Lift Comments Mobility Comments Pt able with heavy use of his arms and bed rail able to get from supine to sit with MYRON at the end to assist to get his trunk upright. Pt able to sit at the edge of the bed on his own. MAX AX 2 to help scoot pt up the bed for better positioning for trial of sit to stander. Pt able to use his arms to assist to help straighten himself up as well at the sit to stand machine. OT- Balance Assessment Sitting Balance and Reactions Static Sitting Balance Ability Good Dynamic Sitting Balance Ability Fair M8 OT- IP Objective Assessments Start: 03/09/22 14:19 Freq: Status: Active Protocol: Document 03/09/22 14:20 CGR (Rec: 03/09/22 14:37 [facility] [id number]) OT Gross Range of Motion Upper Extremity Range of Motion Assessment Bilaterally Impaired ROM Impairments AROM of the UE is limited on both shlds to 100 degrees. B knee restrictions into full extension. OT Strength Upper Extremity Strength Shoulder r 4, l 3+ Elbow 4- B Hand R 3+, L 4- OT- Coordination Assessment Comments Coordination Comments Pt declined to perform but noted spoon to mouth at lunch and able to put straw into ensure bottle and bring bottle to mouth to use straw. OT-Muscle Tone Assessment Muscle Tone WNL Yes OT Sensation Assessment Edema Edema Present Edema Comments LLe appears swollen M9 OT- IP Assessment and Plan Start: 03/09/22 14:19 Freq: Status: Active Protocol: Document 03/13/22 14:23 [facility] (Rec: 03/13/22 14:37 [facility] [id number]) OT Summary Assessment and Plan Potential Rehabilitation Potential Fair Analytic Complexity at Evaluation High Summary OT Impairments Pain,Range of Motion,Strength, Balance,Functional Cognition, Functional Mobility,Grooming, Dressing,Toileting,Bathing, Toilet Transfers,Shower Transfers,Activity Tolerance Progress Towards Goals Progressing Toward Goals Assessment Summary Pt agreeable to try sit to stander with SENIOR TELECOMMUNICATIONS ENGINEER/OT and making an effort to assist to stand with his BUE on the machine. Pt able to actively attempt to straighten his legs several times in addition to having assist from the sit to stander machine. Pt earlier able to actively participate in doing gentle PRom and self stretching to help increase his AROM for ADL needs. Pt would benefit from initial time in SNF to help maximize his level of function for ADl and mobility needs and afterwards may need LTC. Goals Self-Feeding Goal Independent Grooming Goal Independent Dressing Goal Minimal Assistance,Missile Mechanic, Sock Aid Toileting Goal Moderate Assistance Bathing Goal Moderate Assistance Toilet Transfer Goal Moderate Assistance Shower Transfer Goal Moderate Assistance Days to Meet Goals 45 Frequency of Treatment Frequency Of Treatment Once a Day Treatment Plan OT Treatment Plan ADL Training,Functional Cognition Training,Functional Mobility,Patient/Family Education,Discharge Planning Other Treatment Recommendations and Next ADLs seated EOB, UE therex Treatment Focus Discharge Recommendations OT Discharge Recommendations SNF Rehab,LTAC Transportation Needs at Discharge Stretcher/Ambulance
--- NOTE | 2022-03-13 15:11 | CM.DPNOTE ---
DCP Note Attempting coordination of the safest DCP currently available to patient Eva LA NENA, working diligently to investigate patient's options for [place] contracted SNFs and thus far the only facilities that may be able to review patient for admission next week are [facility] and [facility]. No answer from [facility] [place] and [facility] Meanwhile, placed call to friend Ino and LM requested immediate call back Received call from Brad Francis, [facility] [employer] P [phone] who explained that his assistance is limited financial assistance ie help with cost of food, fuel, cost of medications, DME etc Brad referenced patient's roommate Denver who is in and out, neither Denver or patient have phones currently Attempted contact with Mague, who is a co-responder with the [employer] [phone], her VM indicated she would be unreachable for approx the next week. Placed call to [facility] asking about assigned HCS worker (?) Lars [email or web address] responded stating no application in the system found. Application and speedy gina request was re-faxed to [facility] today and Lars facilitated the assignment of HCS worker : Cari Davis [phone] [email or web address] Unable to connect w/Cari today so this will be delayed until Wednesday. This patient is medically stable for discharge. Unfortunately, no SNF secured and no friends or contacts found today to assist patient in getting back into his trailer. Patient is w/c bound and incontinent, requiring assist w/most ADLs currently. Patient has been calm and compliant with care while admitted CM team following closely, will continue to work on planning efforts to get this patient home vs SNF vs LTC JW
--- NOTE | 2022-03-13 17:03 | PT.IPTN ---
Current Diagnoses Urinary tract infection, site not specified (03/08/22) Physical Therapy Treatment Note M2 PT-IP Current Condition Start: 03/07/22 12:23 Freq: NEEDED Status: Active Protocol: Document 03/12/22 16:24 SP (Rec: 03/12/22 18:38 SP [id number]) Physical Therapy Current Condition Current Condition Evaluation Date 03/07/22 Treatment Diagnosis UTI; abdominal pain; generalized weakness Onset Date 03/06/22 M3 PT-IP Subjective Start: 03/07/22 12:23 Freq: NEEDED Status: Active Protocol: Document 03/13/22 16:15 LJ (Rec: 03/13/22 17:03 LJ [id number]) Subjective Physical Therapy Visit Type Type Treatment Note Visit Start Time 13:52 Visit Stop Time 14:19 Total Visit Minutes 27 Notes Co-TX with OT Physical Therapy Visit Comments Patient Comments Agreeable to trial sit to stand machine Therapy Pain Assessment Pain When Pain Assessed During Mobility Pain Present Pain Present Pain Reported Location generalized Scale Used Valenzuela-Carrillo (Faces) Description Burning,Pulling,Tightness,With Movement Pain Behaviors Facial Grimacing,Holding Area, Restlessness Pain Management Techniques Distraction,Modification of Treatment,Re-positioning M4 PT-IP Mobility and Gait Start: 03/07/22 12:23 Freq: NEEDED Status: Active Protocol: Document 03/13/22 16:15 LJ (Rec: 03/13/22 17:03 LJ [id number]) PT-Bed Mobility Assessment Rolling Type of Rolling Log Rolling,Roll to Left Level of Assist Standby Assistance Supine to Sit Supine to Sit Minimal Assistance,Head of Bed Elevated,Bedrails Scooting Scooting to Edge of Bed Contact Guard Assistance PT-Transfer Assessment Sit to and From Stand Sit to and from Stand Total Assistance,2 Person Assistance Equipment Transfer Assistive Device Gait Belt,Mechanical Lift Orthotic/Prosthetic Devices or Brace: No Transfers Transfer Destination Chair Transfer Technique Mechanical Lift Transfer Ability Level of Assist Total Assistance,2 Person Assistance Comments Mobility Comments Pt completed logroll to left SBA using bedrails. Pt required Sd for SL to sitting on side of bed. Able to sit on SOB SBA. Sit to stand machine placed in front of pt and lifting harness donned. Pillow placed between knees and stander knee pad for extra cushion. Pt instructed to hold on to bar and pull himself to standing as stander raised him up. Pt able to use LEs to aid in standing. Pt stood with support of stander and UEs for ~20 sec before he stated he needed to sit back down. Pt sat on side of bed for several minutes rest then stood again using both LEs and UEs. Pt stood for ~30 sec as stander was maneuvered in front of chair. Pt then instructed to lower himself down with the motion of the stander. Care taken to clear head and arms from descending arms of stander. Pt sat in chair and assisted with scooting to back of chair MaxA x2 using pad. Pt then instructed in AROM exercises for LEs. See treatment section PT-Balance Assessment Sitting Balance and Reactions Static Sitting Balance Ability Good M5 PT-IP Objective Assessments Start: 03/07/22 12:23 Freq: NEEDED Status: Active Protocol: Document 03/09/22 16:31 SAK (Rec: 03/09/22 16:39 SAK [id number]) Orientation Orientation/Cognition Level of Alertness Lethargic M6 PT-IP Treatment Start: 03/07/22 12:23 Freq: NEEDED Status: Active Protocol: Document 03/13/22 16:15 ROSALINE (Rec: 03/13/22 17:03 LJ [id number]) Physical Therapy Treatment Exercises Exercises Seated Knee Flexion/Extension Education Education Provided Safety Other Treatments Other Treatment Performed Passive stretching of hamstrings and calves sitting in chair x4 ~20 sec bilateral. Seated knee flex extend assisted by supporting under posterior proximal knee x5 biliateral M7 PT-IP Assessment and Plan Start: 03/07/22 12:23 Freq: NEEDED Status: Active Protocol: Document 03/13/22 16:15 ROSALINE (Rec: 03/13/22 17:03 ROSALINE [id number]) PT Summary Assessment and Plan Potential Rehabilitation Potential Fair Status of Condition at Evaluation Evolving Summary Impairments Pain,ROM,Strength,Balance, Coordination,Sensation,Tone, Cognition,Bed Mobility, Transfers,Gait,Activity Tolerance Progress Towards Goals Slow Progress due to Pain,Slow Progress due to Activity Tolerance,Slow Progress - Other Assessment Summary Pt requiring SBA-Sd x1 for bed mobility. Total assist from mechanical sit to stand however pt using UEs and LEs. Pt actually pulled himself into standing position before the stander lifted him demonstrating sufficent strength in UEs to pull himself to standing. Second time standing pt able to use LEs a bit more achieving greater extension, roughly 20 degrees. When seated in chair stretching LEs pt able to achieve ~20 degrees extension also. Pt was made comfortable in chair, given all needs and chair alarm fastened on gown. Nursing instructed to use juliane lift to transfer pt back to bed. Will train nursing in use of sit to stand lift to progress pts ability to weight bear on LEs in greater extension for extended period of time. Goals Bed Mobility Goal Standby Assistance Transfer Goal Moderate Assistance Days to Meet Goals 10 Frequency of Treatment Frequency Of Treatment Once a Day Treatment Plan Physical Therapy Treatment Plan Bed Mobility Training,Transfer Training,Therapeutic Exercise ,Balance Retraining,Discharge Planning,Hot or Cold Pack, Neuromuscular Re-ed, Coordination Retraining Other Recommendations and Next Treatment pre mobility LE extension AROM Focus /AAROM, bed mob, transfers: squat pivot, STS, SPT if able w/ FWW. Sit to stand mechanical lift Recommendations To Nursing Amount of Assist Needed 2 Person Assist,Power Sit- Stand Discharge Recommendations PT Discharge Recommendations SNF Rehab Other Discharge Recommendations will need terminal operator care placement Transportation Needs at Discharge Wheelchair/Cabulance
[2022-03-13 18:33] VITALS: BP 118/74; RESP 18; TEMP 36.5; O2SAT 94
[2022-03-13 19:48] VITALS: BP 103/63; PULSE 83; RESP 17; TEMP 36.4; O2SAT 100
--- NOTE | 2022-03-13 22:35 | PC.NURSE ---
Patient is alert and oriented except to day of week. Speech is soft spoken and mumbles so can be difficult to understand. Breath sounds coarse throughout and became SOB with repositioning; RA sat 100%. HRR. Denied nausea. BT present but abdomen is distended (has ascites) and firm to touch. Indwelling catheter is patent; urine is clear, yellow. Is able to turn himself but staff ensures he does so and assists as needed. Has pressure areas to bilateral hips, buttocks and heels; has allevyn dressings on hips and buttocks and heels are being floated. Has contractures of bilateral LE. 1+ edema in bilateral LE. Gait not assessed at this time; is being seen by PT and nursing is using a Khloe for transfers. Agreeable to having bilateral calf SCD's applied. Complained of generalized pain due to fibromyalgia and was medicated with oxycodone. Fall risk score is high and bed alarm is ativated.
[2022-03-14] MEDS: PANTOPRAZOLE DR 20 MG TABLET PO (06:01)
[2022-03-14] MEDS: OXYCODONE IR 5 MG TABLET PO (06:05)
[2022-03-14 07:00] VITALS: BP 134/75; PULSE 90; RESP 19; TEMP 36.4; O2SAT 94
[2022-03-14 08:37] VITALS: BP 134/75; PULSE 90; RESP 19; TEMP 36.4; O2SAT 94
[2022-03-14] MEDS: ENOXAPARIN 40 MG/0.4 ML SYRINGE SUBCUT (09:09)
[2022-03-14] MEDS: DOCUSATE 100 MG CAPSULE PO ×2 (11:45→21:04)
--- NOTE | 2022-03-14 13:04 | PT-IP ANOTE ---
1304 Checked on pt to see if he would like to get out of bed and sit in the chair. Pt refused giving multiple reasons why he couldn't at the moment including need to have BM but not being able to, being nauseated, having pain in his buttocks etc. Informed pt this therapist will check back with him later in the day.
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
--- NOTE | 2022-03-14 15:01 | PT-IP ANOTE ---
checks on pt and pt refusing PT. pt stated that he is constipated and had a stool softener but has abdominal pain and just wants to rest. asked pt if he wants to sit on a bedside commode to assist with BM and pt refused. stated that he cannot move right now because of pain.
[2022-03-14 20:37] VITALS: BP 127/84; PULSE 81; RESP 18; TEMP 36.2; O2SAT 97
[2022-03-14] MEDS: SENNOSIDES 8.6 MG TABLET 17.2 MG PO (21:04)
--- NOTE | 2022-03-14 23:02 | PC.NURSE ---
Patient is rambling tonight, went off a tangent about his multiple and chronic medical problems, not listening to staff and not allowing staff to speak. Declined to respond to any of the orientation questions. Breath sounds CTA with RA sat of 97% but respirations are shallow. HRR. BT present but abdomen remains firm and distended; has ascites. Indwelling catheter is patent. Is being repositioned q2h as, although able to move himself, he isn't moving very often. Has pressure injury to bilateral hips, buttocks and heels. Heels are being floated and has a waffle cushion. He is wearing bilateral calf SCD's. Complained of 10/10 pain but declined pain med offered stating it doesn't help anyway. Fall risk score is high and bed alarm is activated.
[2022-03-15] MEDS: PANTOPRAZOLE DR 20 MG TABLET PO (05:59)
[2022-03-15 07:00] VITALS: BP 123/78; PULSE 78; RESP 18; TEMP 36.6; O2SAT 100
[2022-03-15] MEDS: DOCUSATE 100 MG CAPSULE PO (08:58)
[2022-03-15] MEDS: SENNOSIDES 8.6 MG TABLET 17.2 MG PO (08:58)
[2022-03-15] MEDS: ENOXAPARIN 40 MG/0.4 ML SYRINGE SUBCUT (08:58)
[2022-03-15] MEDS: OXYCODONE IR 5 MG TABLET PO (10:38)
--- NOTE | 2022-03-15 12:51 | DI.CT.S_ITS ---
PROCEDURE: CT CHEST ABD PEL W CON INDICATIONS: severe abd distension and pain TECHNIQUE: After the administration of intravenous contrast, 5 mm thick sections acquired from the lung apices to the symphysis. 5 mm coronal and sagittal reformats were performed, with additional 7 mm MIP reformats through the lungs. For radiation dose reduction, the following was used: automated exposure control, adjustment of mA and/or kV according to patient size. COMPARISON: [facility], CT, CT ABDOMEN PELVIS W CON, 03/08/2022, 15:40. [facility], CT, CT CHEST ABD PEL W CON, 02/12/2022, 16:22. FINDINGS: Chest: Cardiovascular: Heart size is normal. No evidence of pulmonary embolism, aortic aneurysm or dissection. Lungs and pleural spaces: Moderate bilateral pleural effusions with associated compressive atelectasis present. Lymph nodes: No mediastinal, hilar or axillary adenopathy. Mediastinum: Unremarkable. No hiatal hernia. Thyroid within normal limits. Chest Wall and Bones: Unremarkable. No acute fracture. Abdomen and Pelvis: Liver: Liver again shows cirrhotic nodular appearance, similar prior exam. Enhancing nodules are also similar. Associated moderate to large volume ascites present. Biliary system: Cholelithiasis stable. Pancreas: Unremarkable without mass or inflammation evident. Spleen: The spleen is enlarged at 15.7 cm. No intrinsic mass lesion. Adrenals: Right adrenal nodule remains stable from prior. Left adrenal gland unremarkable. Reproductive system: Unremarkable as visualized. Urinary system: Normal renal size and attenuation. No renal calculi, hydronephrosis, or solid mass present. Reyes catheter in the bladder.. Gastrointestinal system: The bowel is unremarkable with no evidence of bowel obstruction or inflammation. The stomach appears unremarkable. Large fecal bolus in the rectum Appendix: No findings to suggest acute appendicitis. Lymph nodes: No mesenteric or retroperitoneal adenopathy. Peritoneal spaces: No free air. No free fluid. Vasculature: Aortic atherosclerotic vascular calcification noted without evidence of aneurysm. Abdominal wall: Abdominal wall intact without evidence of ventral or inguinal hernias. Diffuse subcutaneous edema Musculoskeletal: Normal bone mineralization. Degenerative disc disease and arthropathy noted in lower lumbar spine. Moderate to severe stenosis L4-5 L3-4. No acute fractures. Left proximal femoral osteochondroma remains stable. IMPRESSION: 1. Stable hepatic cirrhosis, splenomegaly and moderate-large volume ascites. 2. Enhancing hepatic nodules remain unchanged. 3. Ascites, moderate pleural effusions and subcutaneous edema all related to fluid balance Approved by: Geo Londono, M.D. on 03/15/2022 at 14:26
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
[2022-03-15 13:55] LABS: Add Manual Diff / Slide Review NO; Basophils Absolute Auto 0 /uL (0-100); Eosinophils Absolute Auto 100 /uL (0-450); Eosinophils Percent Auto 2.8 % (2-4); Hematocrit 26.6 % (41-53); Lymphocytes Absolute Auto 900 /uL (1100-4500); Lymphocytes Percent Auto 17.7 % (25-40); Mean Corpuscular HGB Conc 33.8 % (30-36); Mean Corpuscular Hemoglobin 31.5 PG (26-34); Mean Corpuscular Volume 93.1 fL (80-100); Monocytes Absolute Auto 600 /uL (0-900); Monocytes Percent Auto 12.9 % (3-14); Neutrophils Absolute Auto 3300 /uL (1500-7000); Neutrophils Percent Auto 65.6 % (50-75); Platelet Count 101 X10^3/uL (150-400); Red Blood Cell Count 2.86 X10^6/uL (4.5-5.9); Red Cell Distribution Width 17.3 % (11.6-14.8)
[2022-03-15 14:04] LABS: INR 1.4 (0.9-1.3)
[2022-03-15 14:06] LABS: PTT Partial Thromboplastin Tim 35 SECONDS (26-36)
[2022-03-15 14:07] LABS: Alanine Aminotransferase 16 IU/L (<50); Albumin 2.3 g/dL (3.5-5.0); Albumin Globulin Ratio 0.5 (1.0-2.8); Alkaline Phosphatase 157 U/L (38-126); Aspartate Aminotransferase 29 IU/L (17-59); BUN Creatinine Ratio 26.1 (6-22); Bilirubin Total 0.4 mg/dL (0.2-1.3); Blood Urea Nitrogen 18 mg/dL (9-20); Calcium 7.7 mg/dL (8.4-10.2); Carbon Dioxide 27 mmol/L (22-32); Chloride 105 mmol/L (98-107); Estimated Glomerular Filt Rate > 60 mL/min (>60); Globulin 4.3 g/dL (1.7-4.1); Glucose 113 mg/dL (80-110); HEMOLYSIS < 15 (0-50); Magnesium 1.7 mg/dL (1.6-2.3); Potassium 3.9 mmol/L (3.4-5.1); Sodium 139 mmol/L (137-145); Total Protein 6.6 g/dL (6.3-8.2)
[2022-03-15] MEDS: MAGNESIUM CHLORIDE 64 MG TABLET 128 MG PO (17:07)
[2022-03-15 20:00] VITALS: BP 108/65; PULSE 77; RESP 20; TEMP 36.9; O2SAT 94
[2022-03-16] MEDS: PANTOPRAZOLE DR 20 MG TABLET PO (05:39)
[2022-03-16 07:00] VITALS: BP 115/65; PULSE 83; RESP 17; TEMP 36.6; O2SAT 92
[2022-03-16] MEDS: ENOXAPARIN 40 MG/0.4 ML SYRINGE SUBCUT (09:59)
[2022-03-16] MEDS: DOCUSATE 100 MG CAPSULE PO ×2 (09:59→21:10)
[2022-03-16] MEDS: SENNOSIDES 8.6 MG TABLET 17.2 MG PO ×2 (09:59→21:11)
[2022-03-16] MEDS: SODIUM CHLORIDE 0.9% FLUSH 10 ML IV ×2 (10:00→21:11)
--- NOTE | 2022-03-16 11:43 | OT.IPNOTE ---
Attempted to see pt for OT services. Pt is declining all activity at this time but states that he will get up for lunch. Pt left supine in bed, call button within reach and all needs at time met.
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
--- NOTE | 2022-03-16 13:10 | OT.IP.TRT ---
Current Diagnoses Urinary tract infection, site not specified (03/08/22) Occupational Therapy Treatment Note M2 OT-IP Current Condition Start: 03/09/22 14:19 Freq: Status: Active Protocol: Document 03/09/22 14:20 CGR (Rec: 03/09/22 14:37 CGR [id number]) Occupational Therapy Current Condition Current Condition Evaluation Date 03/09/22 Treatment Diagnosis severe protein calorie malnutrition, cirrhosis, UTI Diagnosis Onset Date 03/08/22 M3 OT- IP Subjective and Pain Start: 03/09/22 14:19 Freq: Status: Active Protocol: Document 03/16/22 13:51 CGR (Rec: 03/16/22 14:00 CGR [id number]) OT- Subjective Occupational Therapy Visit Type Type Progress Note Visit Start Time 12:58 Visit Stop Time 13:10 Total Visit Minutes 12 Notes Upon third check pt was agreeable to getting up to chair. Nursing present to assist with the transfer. OT Pain Assessment Pain When Pain Assessed At Rest Pain Present Pain Present Pain Reported Location generalized Scale Used not rated Management Techniques Distraction,Modification of Treatment,Re-positioning M4 OT- IP ADL's Start: 03/09/22 14:19 Freq: Status: Active Protocol: Document 03/16/22 13:51 CGR (Rec: 03/16/22 14:00 CGR [id number]) OT KFA-Vsks-Fteenya General Evaluation Self-Feeding Ability Independent Comments OT Self-Feeding Comments pt is feeding self lunch upon one of the times this play writer checked in on him. OT ADL-Grooming Comments OT Grooming Comments pt declined OT ADL-Oral Care Comments Oral Care Comments pt declined OT ADL-Dressing General Eval Lower Body Dressing Ability Total Assistance Areas Needing Assistance Socks OT ADL-Toileting Comments OT Toileting Comments pt with azul. OT ADL-Bathing Comments OT Bathing Comments not performed M5 OT- IP IADL's Start: 03/09/22 14:19 Freq: Status: Active Protocol: Document 03/09/22 14:20 CGR (Rec: 03/09/22 14:37 CGR [id number]) OT-Instrumental Activities of Daily Living Deficits IADL Deficits Identified Deficits Home Safety Awareness Awareness of Need for Assistance at Home Decreased Awareness Ability to Problem Solve Emergency Unable to Problem Solve Situations Medication Management Medication Management Comments concerns regarding pt's ability to perform safely Money Management Money Management Comments concerns regarding pt's ability to perform safely Meal Preparation Meal Preparation Comments concerns regarding pt's ability to perform safely Inspector Final Assembly Conveyor Line Inspector Final Assembly Conveyor Line Comments concerns regarding pt's ability to perform safely Driving Driving Comments pt does not drive M6 OT- IP Functional Cognition Start: 03/09/22 14:19 Freq: Status: Active Protocol: Document 03/13/22 14:23 [facility] (Rec: 03/13/22 14:37 [facility] [id number]) Cognitive Factors Limiting Selfcare Function Cognitive Comments Cognitive Assessment Comments Pt able to follow commands but at times needing encouragement as initially pt states I can't for trying to rub lotion on his legs and then after putting his left hand on his leg able to assist . M7 OT- IP Mobility and Balance Start: 03/09/22 14:19 Freq: Status: Active Protocol: Document 03/16/22 13:51 CGR (Rec: 03/16/22 14:00 CGR [id number]) OT- Bed Mobility Assessment Supine to Sit Supine to Sit Assist Standby Assistance,Head of Bed Elevated,Bedrails Scooting Scooting to Edge of Bed Standby Assistance,Bedrails OT-Transfer Assessment Sit to and From Stand Sit to and from Stand Moderate Assistance,2 Person Assistance Transfers Transfer Ability Moderate Assistance,2 Person Assistance Technique Transfer Destination Bed,Chair Transfer Technique Squat Pivot Devices Transfer Assistive Devices Gait Belt Comments Mobility Comments pt peformed a squat pivot transfer with mod x 2 but needs max vc for hand placement. Pt states no that won't work when instructed on hand placement and refuses to place L arm out of the path of the transfer. Pt is agreeable to holding onto therapists arm suring transfer which keeps his L arm out of the path of his transer to chair. OT- Gait Assessment Comments Gait Ability Comments not performed OT- Balance Assessment Sitting Balance and Reactions Static Sitting Balance Ability Good Dynamic Sitting Balance Ability Good M8 OT- IP Objective Assessments Start: 03/09/22 14:19 Freq: Status: Active Protocol: Document 03/09/22 14:20 CGR (Rec: 03/09/22 14:37 CGR [id number]) OT Gross Range of Motion Upper Extremity Range of Motion Assessment Bilaterally Impaired ROM Impairments AROM of the UE is limited on both shlds to 100 degrees. B knee restrictions into full extension. OT Strength Upper Extremity Strength Shoulder r 4, l 3+ Elbow 4- B Hand R 3+, L 4- OT- Coordination Assessment Comments Coordination Comments Pt declined to perform but noted spoon to mouth at lunch and able to put straw into ensure bottle and bring bottle to mouth to use straw. OT-Muscle Tone Assessment Muscle Tone WNL Yes OT Sensation Assessment Edema Edema Present Edema Comments LLe appears swollen M9 OT- IP Assessment and Plan Start: 03/09/22 14:19 Freq: Status: Active Protocol: Document 03/16/22 13:51 CGR (Rec: 03/16/22 14:00 CGR [id number]) OT Summary Assessment and Plan Potential Rehabilitation Potential Fair Analytic Complexity at Evaluation High Summary OT Impairments Pain,Range of Motion,Strength, Balance,Functional Cognition, Functional Mobility,Grooming, Dressing,Toileting,Bathing, Toilet Transfers,Shower Transfers,Activity Tolerance Progress Towards Goals Progressing Toward Goals Assessment Summary Attempted to see pt x3 today. Initially pt refused. Aide then found OT and told that pt was requesting that therapist return. Pt had just received lunch when OT returned and pt requesting that OT return soon for transfer to chair. OT returned and pt needed max encouragement to participate in OT services. Pt states he will transfer to chair to complete his meal. Pt then performed bed mob with HOB up and SBA and mod x 2 for squat transfer to chair with max vc and holding his L arm out of the way of the transfer. Pt then declined all other activity stating that is is nauseated and requested an emesis bag. Bag provided and pt left sitting up in chair, call button within reach and all needs at time met. Goals Self-Feeding Goal Independent Grooming Goal Independent Dressing Goal Minimal Assistance,Electrical Tech/Project Manager, Sock Aid Toileting Goal Moderate Assistance Bathing Goal Moderate Assistance Toilet Transfer Goal Moderate Assistance Shower Transfer Goal Moderate Assistance Days to Meet Goals 45 Frequency of Treatment Frequency Of Treatment Once a Day Treatment Plan OT Treatment Plan ADL Training,Functional Cognition Training,Functional Mobility,Patient/Family Education,Discharge Planning Other Treatment Recommendations and Next ADLs seated EOB, UE therex Treatment Focus Discharge Recommendations OT Discharge Recommendations SNF Rehab,LTAC Transportation Needs at Discharge Stretcher/Ambulance
--- NOTE | 2022-03-16 13:21 | DIET.CONS2 ---
Dietary Inpatient Consultation Note Admission Date: 03/08/2022 13:55 Malnourished male on LOS day 8 awaiting safe d/c plan. Pts POs this hospitalization 50-100% meal trays on general diet. Pt receiving ONS Ensure Enlive with all meals to support nutrition status and wounds. Pt with some pressure sores which are being offloaded q2h by nursing. Continue with nutrition interventions. Diet: 03/08/22 Lunch General (Regular) Diet Diet Modifications: Nutrition Percent Meal Consumed 0% 03/15/22 20:00 Percent Meal Consumed 100% 03/15/22 09:16 Percent Meal Consumed 50% 03/14/22 15:00 Electronically Signed by: Daily Huston 03/16/22 13:21 Clinical Diet[address] [address]
--- NOTE | 2022-03-16 14:21 | CM.DPC ---
DCP Ongoing SNF attempts under [facility] Per , pt could be stable for d/c to SNF if facility secured. Per previous SW note, According to [facility] Jose F Cheryl P [phone] ext [phone], patient can access a 32 day Medicaid bridge SNF benefit in which VA can authorize a SNF stay at a VA contracted facility, as long as patient has skilled rehab need, until Medicaid is active. SW called following identified [facility] contracted SNFs previously faxed referral on Wed03/13/22 before the w/e: Karolyn Morrow: Ma[facility] called back, they are not contracted with [place] any more. No LTC medicaid beds. [facility] Tomas: called admissions phone [phone] Radha and left 2 msgs, confirmed with building staff that she is working today but busy. [facility]: left 2 msgs but didn't anticipate open bed until tomorrow. Requested call back. [facility] Elijah: called admissions [phone] and discussed pt situation and VA coverage for bridge and she is willing to review and re-faxed clinicals to fax [phone]. SW contacted pt's assigned [facility] canvas cutter hand Cari [phone] ([email or web address]) and confirmed she has been assigned to pt and currently has him on the schedule to assess on WedApr 01 at 1000 but anticipates openings will happen prior to that date to complete assessment earlier. Cari declined any clinicals be sent yet for review as she may not be the one to assess if an opening on the schedules becomes available sooner. Plan: SW to follow closely for above [facility] contracted SNFs review and return call (Solange Nair, [facility], [facility]) to determine if any can accept. SW to keep in regular contact with [facility] Cari towards getting LTC assess completed sooner than 04/01/22. ALISHA Larkin
--- NOTE | 2022-03-16 14:25 | PT-IP ANOTE ---
Pt initially agreed to working with therapy and use stander increase endurance standing with more self effort as previous tx, want to get stronger to walk to the bathroom. When PHP ENGINEER/ PT AIde returned with stander pt reported was just up in chair with another therapy today and was just helped back to bed. I just want to stay rested on R side, when I move feels like something is going to rip inside and know my stool is hard and not moving. PHP ENGINEER provided education of benefits of mobility to support digestive circulation through abdominal facilitation. Pt declined PT this afternoon. You can help me get up to the chair before lunch tomorrow. Pt was not seen, total 15 min spent with pt, nonbillable.
[2022-03-16 20:00] VITALS: BP 116/72; PULSE 85; RESP 20; TEMP 36.6; O2SAT 95
[2022-03-16] MEDS: OXYCODONE IR 5 MG TABLET PO (21:12)
--- NOTE | 2022-03-17 08:10 | CM.DPC ---
Addendum entered by Orin Kaye R.N. 03/17/22 14:26: Called Cari Davis, [facility] land management supervisor, as she was supposed to call this DC Fund Controller back to see if she can up his assessment. She stated, she's sorry, she meant to ask her tray line supervisor about moving up assessment, and will speak to her tray line supervisor, and call back. Eva, assistant housekeeping manager, followed up with some of the [place] facilities, [place], and other facilities. Just received a call back from Savanah at [facility]. She thought that patient was bariatric, she may have had the incorrect patient. Gave her information on patient, height and weight, and she asked if we can fax her the referral again. Her numbre is: [phone]. Eva is faxing now. Original Note: DCP Cont: Spoke to Cari Davis, case packer assigned to patient. It is noted that patient's assessment is to be conducted on 04/01. Asked her if she can possibly make this sooner, for patient is here, no medical needs, in need of placement. She indicated that she will speak to her tray line supervisor, Indiar, to see if she can move this up, and will call back. Notes from ALISHA Rice, from yesterday indicate some facilities have been contacted, that are contracted with the [place], that can potentially be bridged through Medicaid. Will contact these facilities again today. P: Cari will call back regarding moving up assessment date, and will follow up with facilities. Orin Kaye RN/Blow Down Helper
[2022-03-17] MEDS: PANTOPRAZOLE DR 20 MG TABLET PO (08:24)
[2022-03-17] MEDS: ENOXAPARIN 40 MG/0.4 ML SYRINGE SUBCUT (08:25)
[2022-03-17] MEDS: SODIUM CHLORIDE 0.9% FLUSH 10 ML IV ×2 (08:39→21:06)
[2022-03-17 08:45] VITALS: BP 123/80; PULSE 90; RESP 18; TEMP 37.2; O2SAT 95
--- NOTE | 2022-03-17 11:54 | OT.IPNOTE ---
Attempted to see pt for OT treatment with POWDER ROOM ATTENDANT ,pt insistent that he is constipated and offered to get pt on the drop arm BSC, pt refused. Pt's BOX OFFICE MANAGER states that pt has diarrhea last night but pt is insistent that he is constipated. NO charge. Able to help reposition pt in the bed.
--- NOTE | 2022-03-17 12:53 | PT-IP ANOTE ---
Pt perseverating on inability to pass fecal matter though that is not the case. Pt ws repositioned in bed and left with needs within reach.
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
[2022-03-17 20:55] VITALS: BP 118/72; PULSE 92; RESP 18; TEMP 36.6; O2SAT 94
[2022-03-17] MEDS: DOCUSATE 100 MG CAPSULE PO (21:06)
[2022-03-17] MEDS: OXYCODONE IR 5 MG TABLET PO (21:14)
--- NOTE | 2022-03-17 22:45 | PC.NURSE ---
Patient is alert and oriented except did not know day of month. Speech is mumbled and can be difficult to understand. Breath sounds coarse but CTA with RA sat of 94%. HRR. Denied nausea. BT present; abdomen remains firm and distended; has ascites. Indwelling catheter is patent; urine is clear, naomi. Is able to turn himself but does not do so is being repositioned by staff q2h. Allevyn dressings intact to bilateral hips and left buttock. Coccyx area remains reddened. Is getting up with juliane and 2 assist to chair during the day; only able to tolerate 1 hour on previous shift. Complains of generalized pain related to fibromyalgia, arthritis and gout; medicated with oxycodone and is currently asleep. 1+ edema bilateral LE; wearing bilateral calf SCD's. Heels with pressure areas that appear as blood blisters; heels are floated. Contractures of bilateral knees. Fall risk score is high and bed alarm is activated.
[2022-03-18] MEDS: PANTOPRAZOLE DR 20 MG TABLET PO (05:32)
[2022-03-18 08:00] VITALS: BP 136/82; PULSE 80; RESP 17; TEMP 36.2; O2SAT 95
[2022-03-18] MEDS: SENNOSIDES 8.6 MG TABLET 17.2 MG PO (08:06)
[2022-03-18] MEDS: ENOXAPARIN 40 MG/0.4 ML SYRINGE SUBCUT (08:06)
[2022-03-18] MEDS: DOCUSATE 100 MG CAPSULE PO (08:06)
[2022-03-18] MEDS: SODIUM CHLORIDE 0.9% FLUSH 10 ML IV ×2 (08:07→21:40)
--- NOTE | 2022-03-18 09:46 | PT.IPTN ---
Current Diagnoses Urinary tract infection, site not specified (03/08/22) Physical Therapy Treatment Note M2 PT-IP Current Condition Start: 03/07/22 12:23 Freq: NEEDED Status: Active Protocol: Document 03/12/22 16:24 SP (Rec: 03/12/22 18:38 SP [id number]) Physical Therapy Current Condition Current Condition Evaluation Date 03/07/22 Treatment Diagnosis UTI; abdominal pain; generalized weakness Onset Date 03/06/22 M3 PT-IP Subjective Start: 03/07/22 12:23 Freq: NEEDED Status: Active Protocol: Document 03/18/22 09:18 LJ (Rec: 03/18/22 09:45 LJ [id number]) Subjective Physical Therapy Visit Type Type Treatment Note Visit Start Time 09:47 Visit Stop Time 10:12 Total Visit Minutes 25 Notes Co-TX with OT. UMM traning on ow to use power stander Physical Therapy Visit Comments Patient Comments Needs to use the BS. Agreeable to use power stander Therapy Pain Assessment Pain When Pain Assessed During Mobility Pain Present Pain Present Pain Reported Location generalized Intensity 6 Scale Used Numeric (0 - 10) Pain Management Techniques Distraction,Modification of Treatment,Re-positioning M4 PT-IP Mobility and Gait Start: 03/07/22 12:23 Freq: NEEDED Status: Active Protocol: Document 03/18/22 09:18 LJ (Rec: 03/18/22 09:45 LJ [id number]) PT-Bed Mobility Assessment Rolling Type of Rolling Log Rolling,Roll to Left Level of Assist Standby Assistance Supine to Sit Supine to Sit Minimal Assistance,Head of Bed Elevated,Bedrails PT-Transfer Assessment Sit to and From Stand Sit to and from Stand Moderate Assistance,2 Person Assistance Equipment Transfer Assistive Device Gait Belt,Mechanical Lift Orthotic/Prosthetic Devices or Brace: No Transfers Transfer Destination Bed,Bedside Commode Transfer Ability Level of Assist Total Assistance,2 Person Assistance Comments Mobility Comments Pt completed logroll SBA and cues. SL to sit on side of bed Sd x1. Placed harness on pt and cued where to hold on to assist himself in standing. Pt did not pull with UEs and harness had to be tightened because pt unable to maintain himself in standing. Moved to [facility] where he sat for ~15 min during. Unable to have BM so requested to go back to bed. Pt did not attempt to use UEs to pull himself to standing and did not attempt to stand up with power stander. He was placed back on the bed. Nsg called to assist with brief change. Pt left in the room with nursing making him comfortable in bed. Tray by bedside. PT-Balance Assessment Sitting Balance and Reactions Static Sitting Balance Ability Good M5 PT-IP Objective Assessments Start: 03/07/22 12:23 Freq: NEEDED Status: Active Protocol: Document 03/09/22 16:31 SAK (Rec: 03/09/22 16:39 SAK [id number]) Orientation Orientation/Cognition Level of Alertness Lethargic M6 PT-IP Treatment Start: 03/07/22 12:23 Freq: NEEDED Status: Active Protocol: Document 03/18/22 09:18 LJ (Rec: 03/18/22 09:45 LJ [id number]) Physical Therapy Treatment Education Education Provided Safety M7 PT-IP Assessment and Plan Start: 03/07/22 12:23 Freq: NEEDED Status: Active Protocol: Document 03/18/22 09:18 LJ (Rec: 03/18/22 09:45 LJ [id number]) PT Summary Assessment and Plan Potential Rehabilitation Potential Poor Status of Condition at Evaluation Evolving Summary Impairments Pain,ROM,Strength,Balance, Coordination,Sensation,Tone, Cognition,Bed Mobility, Transfers,Gait,Activity Tolerance Progress Towards Goals Slow Progress due to Pain,Slow Progress due to Activity Tolerance,Slow Progress - Other Assessment Summary Pt is not appropriate for power stander due to inability to follow directions in pulling self up with arms, pushing with LEs, and leaning back as the machine lifts him. Pt leaned forward and let himself dangle without putting weight into his LEs. Pt is not consistent with following directions when using stander and is unsafe for transfers with it. Recommend to nursing to continue to use juliane for transfers. Discussed with pt the importance of participating in therapeutic activities and exercises in order to progress his recovery and improve his strength and functional mobility. Pt stated he can't do anything and isn' t willing to try exercises. Pt agreed to discharge from therapy. Discussed with PT and supportive employment case manager about DCing pt from therapy. Goals Bed Mobility Goal Standby Assistance Transfer Goal Moderate Assistance Days to Meet Goals 10 Frequency of Treatment Frequency Of Treatment Once a Day Treatment Plan Physical Therapy Treatment Plan Bed Mobility Training,Transfer Training,Therapeutic Exercise ,Balance Retraining,Discharge Planning,Hot or Cold Pack, Neuromuscular Re-ed, Coordination Retraining Other Recommendations and Next Treatment pre mobility LE extension AROM Focus /AAROM, bed mob, transfers: squat pivot, STS, SPT if able w/ FWW. Sit to stand mechanical lift Recommendations To Nursing Amount of Assist Needed 2 Person Assist,Mechanical Lift Discharge Recommendations PT Discharge Recommendations SNF Rehab Other Discharge Recommendations will need regional intermodal truck driver care placement Transportation Needs at Discharge Wheelchair/Cabulance
[2022-03-18] MEDS: OXYCODONE IR 5 MG TABLET PO ×2 (10:23→15:21)
--- NOTE | 2022-03-18 10:56 | PT.IPTN ---
Current Diagnoses Urinary tract infection, site not specified (03/08/22) Physical Therapy Treatment Note M2 PT-IP Current Condition Start: 03/07/22 12:23 Freq: NEEDED Status: Active Protocol: Document 03/12/22 16:24 SP (Rec: 03/12/22 18:38 SP [id number]) Physical Therapy Current Condition Current Condition Evaluation Date 03/07/22 Treatment Diagnosis UTI; abdominal pain; generalized weakness Onset Date 03/06/22 M3 PT-IP Subjective Start: 03/07/22 12:23 Freq: NEEDED Status: Active Protocol: Document 03/18/22 09:18 LJ (Rec: 03/18/22 09:45 LJ [id number]) Subjective Physical Therapy Visit Type Type Treatment Note Visit Start Time 09:47 Visit Stop Time 10:12 Total Visit Minutes 25 Notes Co-TX with OT. UMM traning on ow to use power stander Physical Therapy Visit Comments Patient Comments Needs to use the BS. Agreeable to use power stander Therapy Pain Assessment Pain When Pain Assessed During Mobility Pain Present Pain Present Pain Reported Location generalized Intensity 6 Scale Used Numeric (0 - 10) Pain Management Techniques Distraction,Modification of Treatment,Re-positioning M4 PT-IP Mobility and Gait Start: 03/07/22 12:23 Freq: NEEDED Status: Active Protocol: Document 03/18/22 09:18 LJ (Rec: 03/18/22 09:45 LJ [id number]) PT-Bed Mobility Assessment Rolling Type of Rolling Log Rolling,Roll to Left Level of Assist Standby Assistance Supine to Sit Supine to Sit Minimal Assistance,Head of Bed Elevated,Bedrails PT-Transfer Assessment Sit to and From Stand Sit to and from Stand Total Assistance,2 Person Assistance Equipment Transfer Assistive Device Gait Belt,Mechanical Lift Orthotic/Prosthetic Devices or Brace: No Transfers Transfer Destination Bed,Bedside Commode Transfer Ability Level of Assist Total Assistance,2 Person Assistance Comments Mobility Comments Pt completed logroll SBA and cues. SL to sit on side of bed Sd x1. Placed harness on pt and cued where to hold on to assist himself in standing. Pt did not pull with UEs and harness had to be tightened because pt unable to maintain himself in standing. Moved to [facility] where he sat for ~15 min during. Unable to have BM so requested to go back to bed. Pt did not attempt to use UEs to pull himself to standing and did not attempt to stand up with power stander. He was placed back on the bed. Nsg called to assist with brief change. Pt left in the room with nursing making him comfortable in bed. Tray by bedside. PT-Balance Assessment Sitting Balance and Reactions Static Sitting Balance Ability Good M5 PT-IP Objective Assessments Start: 03/07/22 12:23 Freq: NEEDED Status: Active Protocol: Document 03/09/22 16:31 SAK (Rec: 03/09/22 16:39 SAK [id number]) Orientation Orientation/Cognition Level of Alertness Lethargic M6 PT-IP Treatment Start: 03/07/22 12:23 Freq: NEEDED Status: Active Protocol: Document 03/18/22 09:18 LJ (Rec: 03/18/22 09:45 LJ [id number]) Physical Therapy Treatment Education Education Provided Safety M7 PT-IP Assessment and Plan Start: 03/07/22 12:23 Freq: NEEDED Status: Active Protocol: Document 03/18/22 09:18 LJ (Rec: 03/18/22 09:45 LJ [id number]) PT Summary Assessment and Plan Potential Rehabilitation Potential Poor Status of Condition at Evaluation Evolving Summary Impairments Pain,ROM,Strength,Balance, Coordination,Sensation,Tone, Cognition,Bed Mobility, Transfers,Gait,Activity Tolerance Progress Towards Goals Slow Progress due to Pain,Slow Progress due to Activity Tolerance,Slow Progress - Other Assessment Summary Pt is not appropriate for power stander due to inability to follow directiions in pulling self up with arms, pushing with LEs, and leaning back as the machine lifts him. Pt leaned forward and let himself dangle without putting weight into his LEs. Pt is not consistent with following directions when using stander and is unsafe for transfers with it. Recommend to nursing to continue to use juliane for transfers. Discussed with pt the importance of participating in therapeutic activities and exercises in order to progress his recovery and improve his strength and functional mobility. Pt stated he can't do anything and isn' t willing to try exerises. Pt agreed to discharge from therapy. Discussed with PT and counseling case manager about DCing pt from therapy. Goals Bed Mobility Goal Standby Assistance Transfer Goal Moderate Assistance Days to Meet Goals 10 Frequency of Treatment Frequency Of Treatment Once a Day Treatment Plan Physical Therapy Treatment Plan Bed Mobility Training,Transfer Training,Therapeutic Exercise ,Balance Retraining,Discharge Planning,Hot or Cold Pack, Neuromuscular Re-ed, Coordination Retraining Other Recommendations and Next Treatment pre mobility LE extension AROM Focus /AAROM, bed mob, transfers: squat pivot, STS, SPT if able w/ FWW. Sit to stand mechanical lift Recommendations To Nursing Amount of Assist Needed 2 Person Assist,Mechanical Lift Discharge Recommendations PT Discharge Recommendations SNF Rehab Other Discharge Recommendations will need snf care placement Transportation Needs at Discharge Wheelchair/Cabulance
--- NOTE | 2022-03-18 10:58 | OT.IP.TRT ---
Current Diagnoses Urinary tract infection, site not specified (03/08/22) Occupational Therapy Treatment Note M2 OT-IP Current Condition Start: 03/09/22 14:19 Freq: Status: Active Protocol: Document 03/09/22 14:20 CGR (Rec: 03/09/22 14:37 CGR [id number]) Occupational Therapy Current Condition Current Condition Evaluation Date 03/09/22 Treatment Diagnosis severe protein calorie malnutrition, cirrhosis, UTI Diagnosis Onset Date 03/08/22 M3 OT- IP Subjective and Pain Start: 03/09/22 14:19 Freq: Status: Active Protocol: Document 03/18/22 10:47 [facility] (Rec: 03/18/22 10:58 [facility] [id number]) OT- Subjective Occupational Therapy Visit Type Type Treatment Note Visit Start Time 08:35 Visit Stop Time 08:52 Total Visit Minutes 17 Occupational Therapy Visit Comments Patient Comments Pt agreed to get up but then not wanting to partipicate after getting on the BSC with sit to stander. OT Pain Assessment Pain When Pain Assessed At Rest Pain Present Pain Present Pain Reported M4 OT- IP ADL's Start: 03/09/22 14:19 Freq: Status: Active Protocol: Document 03/18/22 10:47 [facility] (Rec: 03/18/22 10:58 [facility] [id number]) OT [id number] Comments OT Self-Feeding Comments Pt able to eat with increased time. OT ADL-Grooming Comments OT Grooming Comments not performed OT ADL-Oral Care Comments Oral Care Comments Not performed OT ADL-Dressing Comments OT Dressing Comments Total assist for all LB dressing needs OT ADL-Toileting Comments OT Toileting Comments Pt azul in place. Total assist for all toileting needs . OT ADL-Bathing Comments OT Bathing Comments Sponge bath more appropriate at this time M5 OT- IP IADL's Start: 03/09/22 14:19 Freq: Status: Active Protocol: Document 03/09/22 14:20 CGR (Rec: 03/09/22 14:37 [facility] [id number]) OT-Instrumental Activities of Daily Living Deficits IADL Deficits Identified Deficits Home Safety Awareness Awareness of Need for Assistance at Home Decreased Awareness Ability to Problem Solve Emergency Unable to Problem Solve Situations Medication Management Medication Management Comments concerns regarding pt's ability to perform safely Money Management Money Management Comments concerns regarding pt's ability to perform safely Meal Preparation Meal Preparation Comments concerns regarding pt's ability to perform safely [facility] Comments concerns regarding pt's ability to perform safely Driving Driving Comments pt does not drive M6 OT- IP Functional Cognition Start: 03/09/22 14:19 Freq: Status: Active Protocol: Document 03/18/22 10:47 [facility] (Rec: 03/18/22 10:58 [facility] [id number]) Cognitive Factors Limiting Selfcare Function Cognitive Comments Cognitive Assessment Comments Pt able to follow commands but very insistent on his care. Pt needing lots of encouragement and initially agrees to participate and then refuses. M7 OT- IP Mobility and Balance Start: 03/09/22 14:19 Freq: Status: Active Protocol: Document 03/18/22 10:47 [facility] (Rec: 03/18/22 10:58 [facility] [id number]) OT- Bed Mobility Assessment Supine to Sit Supine to Sit Assist Minimal Assistance OT-Transfer Assessment Comments Mobility Comments Use of sit to stander for transfer, pt is not safe to use the machine as pt not following the directions and safety for sit to stander use. At this time , safer for staff to use the juliane lift instead. OT- Balance Assessment Sitting Balance and Reactions Static Sitting Balance Ability Good Dynamic Sitting Balance Ability Fair M9 OT- IP Assessment and Plan Start: 03/09/22 14:19 Freq: Status: Active Protocol: Document 03/18/22 10:47 [facility] (Rec: 03/18/22 10:58 [facility] [id number]) OT Summary Assessment and Plan Potential Rehabilitation Potential Poor Analytic Complexity at Evaluation High Summary Assessment Summary Pt at this time not actively participating with therapy and insistent on his care and at this time requiring use of juliane for mobility needs and assist for all dressing, toileting, and bathing needs. Pt to be discharged from OT services at this time. pt is more appropriate to be in a LTC facility. Discharge Recommendations OT Discharge Recommendations LTAC Transportation Needs at Discharge Stretcher/Ambulance
[2022-03-18] MEDS: FUROSEMIDE 40 MG/4 ML VIAL IV (13:29)
[2022-03-18 14:18] LABS: Ammonia (NH3) 52 umol/L (9-30)
--- NOTE | 2022-03-18 14:22 | CM.DPC ---
DCP Cont: SW called following reviewing [place] Contracted SNFs: [facility]: called admissions phone [phone] Radha and she states their DNS reviewed and too high of care needs and decline at this time. [facility]: called admissions [phone] and their DNS does not feel pt appropriate fit for staffing ratio at their facility and decline. [facility] am: reviewed, had questions about his d/c plan from SNF and provided info on his scheduled HCS assessment and willingness to go home with ORA or LTC facility. Will do final review with DNS but feel he is a good rehab candidate and will call back later today with determination. VERÓNICA met bedside with pt and explained role and pt appears A&O x3 but has to be redirected to discharge planning but states his Payee was assigned by [place] MD and he was not really in agreement but was able to name his Payee. VERÓNICA inquired if pt still agreeable with SNF if one could be secured but alerted him of only one option left and pt confirms he is still agreeable to SNF. SW inquired if pt would be agreeable to LTC placement at a facility and he states his preference would be home with CG but now aware that likely that might not be an option and therefore he is agreeable with LTC placement at a facility. VERÓNICA inquired who he would choose for DPOA and he stated his long time friend Ino. SW inquired if no SNF located, would he be agreeable with d/c home and pt confirms stating I'm in better shape than last time I discharged. VERÓNICA updated MD on above who plans to meet bedside with him to determine if he feels pt A&O and if safe to d/c if no SNF secured. [facility] declines accepting pt and [facility] not contracted with [place] and [employer] not currently serving [facility]. VERÓNICA called pt's APS worker Carmen who confirms Aggie is still out on vacation for the next week and current APS worker is Eamon Cordero [phone]. VERÓNICA called friend Ino [phone] and left msg inquiring if he would be willing to be DPOA and if pt discharges home would he be willing to check on pt after d/c to make sure he is settled, requested call back. SW spoke to Brad Fracnis, [place] [employer] P [phone], and updated on difficulty with SNF and the process of LTC application. He is still willing to meet with pt in his home once he is discharged from either SNF or hospital. Plan: SW to follow closely for return call from [facility] to determine if they will be willing to accept for SNF rehab under his [facility] bridge program. SW to keep all following agencies updated when pt discharges. BLS form completed in case pt needs transport at d/c. ALISHA Larkin
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
[2022-03-18] MEDS: LACTULOSE 20 GM/30 ML SOLUTION PO ×2 (17:17→21:40)
[2022-03-18 20:05] VITALS: BP 126/77; PULSE 82; RESP 19; TEMP 36.3; O2SAT 95
--- NOTE | 2022-03-19 02:00 | PC.NURSE ---
Patient drowsy but oriented. Speech is mumbled and difficult to understand at times. Breath sounds coarse but CTA with RA sat of 95%. HRR. BT hypoactive; abdomen remains firm and distended particularly in upper abdomen. Indwelling catheter is patent; urine is clear, yellow. Allevyn dressings to pressure areas on bilateral hips and buttocks all intact with small amount drainage noted on left hip/buttock dressings. Is able to move himself but does not turn himself so staff is repositioning q2h. Heels are being floated as he has pressure injury's (appear to be blood under skin) on bilateral heels; also wearing heel protectors. Edema appears significantly decreased in lower extremities tonight. Bilateral calf SCD's applied after patient transferred back into bed from recliner early this shift. Chronic pain but declines pain medication stating it doesn't help. Fall risk score is high and bed alarm is activated.
[2022-03-19] MEDS: PANTOPRAZOLE DR 20 MG TABLET PO (05:42)
[2022-03-19 07:00] LABS: Hematocrit 25.6 % (41-53); Hemoglobin 8.7 g/dL (13.5-17.5); Mean Corpuscular HGB Conc 33.8 % (30-36); Mean Corpuscular Hemoglobin 31.7 PG (26-34); Mean Corpuscular Volume 93.7 fL (80-100); Platelet Count 95 X10^3/uL (150-400); Red Blood Cell Count 2.73 X10^6/uL (4.5-5.9); Red Cell Distribution Width 17.9 % (11.6-14.8); White Blood Cell Count 3.8 X10^3/uL (4.5-11.0)
[2022-03-19 07:09] LABS: BUN Creatinine Ratio 24.6 (6-22); Blood Urea Nitrogen 16 mg/dL (9-20); Calcium 7.8 mg/dL (8.4-10.2); Carbon Dioxide 26 mmol/L (22-32); Chloride 105 mmol/L (98-107); Estimated Glomerular Filt Rate > 60 mL/min (>60); Glucose 99 mg/dL (80-110); HEMOLYSIS < 15 (0-50); Magnesium 1.7 mg/dL (1.6-2.3); Potassium 3.6 mmol/L (3.4-5.1); Sodium 139 mmol/L (137-145)
[2022-03-19 08:11] VITALS: BP 114/71; PULSE 80; RESP 18; TEMP 36.8; O2SAT 96
[2022-03-19] MEDS: FUROSEMIDE 40 MG TABLET PO (08:12)
[2022-03-19] MEDS: LACTULOSE 20 GM/30 ML SOLUTION PO ×2 (08:12→21:49)
[2022-03-19] MEDS: ENOXAPARIN 40 MG/0.4 ML SYRINGE SUBCUT (08:12)
[2022-03-19] MEDS: DOCUSATE 100 MG CAPSULE PO ×2 (08:13→21:50)
[2022-03-19] MEDS: SENNOSIDES 8.6 MG TABLET 17.2 MG PO ×2 (08:13→21:49)
[2022-03-19] MEDS: SODIUM CHLORIDE 0.9% FLUSH 10 ML IV (09:19)
--- NOTE | 2022-03-19 09:21 | PT-IP ANOTE ---
TAPPING MACHINE OPERATOR informed PT regarding pt's lack of participation and plateauing in function. TAPPING MACHINE OPERATOR has informed pt and nursing regarding d/c from PT. PT has informed pillowcase folder.
[2022-03-19] MEDS: OXYCODONE IR 5 MG TABLET PO (11:48)
[2022-03-19] MEDS: MAGNESIUM CHLORIDE 64 MG TABLET 128 MG PO (11:49)
--- NOTE | 2022-03-19 12:44 | P.DS_ITS ---
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 He was found to have a concerning liver lesion suspicious for HCC. During that hospitalization, it ws recommended he d/c to SNF. He adamantly refused. There were also discussions about d/c h ome w/hospice. He ultimately insisted on discharging home w/HH. He states he went home about a week ago and had friends and neighbors helping him. He states that they gathered a large group of people including the police, APS and 20 other people to come out to his home. He states he was forced to come to the ER. He c/o'd constipation in the ED and received lactulose and dulcolax w/good results. UTI was found and treatment was initiated. He has been in the ED for the past 2 days with attempts at discharge. SNF referrals have been made, he has participated in PT. He told the SR. DIRECTOR PRODUCT MANAGEMENT he was receptive to placement. Unfortunately, due to it being a weekend, his Medicare/Medicaid status could not be verified and there was no SR. DIRECTOR PRODUCT MANAGEMENT in the hospital today. Admission was recommended. Pt arrived to the floor and was c/o being very uncomfortable. Today he c/o'd abdominal pain. CT showed simple ascites. MRI has been recommended for further evaluation of the liver densities previously seen on imaging. His azul cath was leaking. He was noted to be tachypneic. He tells me he has a hx of colon cancer and reports that it has come back. He cannot provide additional detalis. He also states adamantly that he will not go to a SNF (reports he has been in 3 previously and he didn't get along w/them). He states he has been in an [facility] x 9 months in [place] at one point, and couldn't get along them. He denies being receptive to an AF. He states he is able to go home as long as he gets a visiting nurse and says his dad did fine w/one. He has very little insight into his medical condition and poor performance status. Discharge Providers Provider Date of admission: 03/08/22 13:55 Discharge Date: 03/19/22 Primary care physician: MINGO Carl Consults: 03/06/22 13:32 Consult to SR. DIRECTOR PRODUCT MANAGEMENT - Supervisor Cigarette Making Department Stat Comment: 03/06/22 18:42 Consult to SR. DIRECTOR PRODUCT MANAGEMENT - Supervisor Cigarette Making Department Stat Comment: SR. DIRECTOR PRODUCT MANAGEMENT Consult needed for:: Community Health Res Need Behavioral Health Assess 03/07/22 04:55 Consult to Physical Therapy Evaluate & Treat Comment: Physician Instructions: Evaluate and Treat Consult to Wound Care Stat Comment: Consulting Provider: [facility] 03/08/22 17:52 Consult to Dietitian, Adult Routine Comment: Reason For Exam: Severe PCM, chronic Consult to Discharge Planning Routine Comment: Consult to Occupational Therapy Evaluate & Treat Comment: Physician Instructions: Evaluate and treat Consult to Physical Therapy Evaluate & Treat Comment: Physician Instructions: Evaluate and Treat 03/08/22 18:06 Consult to SR. DIRECTOR PRODUCT MANAGEMENT - Supervisor Cigarette Making Department Routine Comment: 03/08/22 18:23 Consult to SR. DIRECTOR PRODUCT MANAGEMENT - Supervisor Cigarette Making Department Routine Comment: Discharge provider: Bhavin Love MD Summary Hospital Course Discharge Diagnosis: 1. Cirrhosis 2. Possible liver mass 3. UTI 4. Protein calorie malnutrition, severe 5. Mild hepatic encephalopathy 6. History of colon cancer 7. Chronic weakness, lower extremity contractures 8. COVID positive, asymptomatic 9. Possible history of stroke, with left sided weakness Hospital Course: Mr. Paredes came in to the hospital with weakness, difficulty caring for himself at. He had a UTI which was treated. He was known to have cirrhosis, etiology is possibly alcoholic, he also was hepatitis C positive at this admission. He had Hep C genotyping sent and pending at discharge. He may benefit from treatment of this pending results. He had abdominal imaging with enchancement noted on CT scan, there was question of possible mass. He should have an MRI of his liver done as an outpatient. He had ascites, and para was attempted but there was not enough fluid to drain. He was started on lasix due to his abdominal distention. He had mild hepatic encephalopathy and was discharged with lactulose which he should take at least daily to prevent worsening confusion. He is discharged to SNF for PT and OT. Exam Vital Signs (past 8 hours): - 03/19/22 08:11 Temperature 98.3 F Pulse Rate 80 Respiratory Rate 18 Blood Pressure 114/71 Pulse Oximetry 96 Oxygen Flow Rate 0 Oxygen Delivery Method Room Air Oxygen Flow Rate 0 Narrative Exam Narrative: GEN:?Cachectic elderly male, frail, alert CHEST:? Respiratory excursions symmetric, coarse but clear to auscultation bilaterally CV:? regular rate and rhythm, no murmurs, rubs, gallops ABD: soft non tender. NEURO:? Alert and oriented x3, grossly intact with slightly slurred speech Objective Labs 03/19/22 05:22 03/19/22 05:22 Labs: Laboratory Results - last 24 hr 03/18/22 03/19/22 03/19/22 14:04 05:22 05:22 WBC 3.8 L RBC 2.73 L Hgb 8.7 L Hct 25.6 L MCV 93.7 MCH 31.7 MCHC 33.8 RDW 17.9 H Plt Count 95 L Sodium 139 Potassium 3.6 Chloride 105 Carbon Dioxide 26 BUN 16 Creatinine 0.65 L Estimated GFR > 60 BUN/Creatinine Ratio 24.6 H Glucose 99 Calcium 7.8 L Magnesium 1.7 Ammonia 52 H PFSH Social History household members: none Smoking Status: Former smoker alcohol intake: former Discharge Plan Discharge Plan Patient Disposition: SNF I certify the postop hospital correction care is medically necessary on a continuing basis for any conditions for which he/ she received care during this hospitalization.: Yes The receiving facility has agreed to accept transfer and provide medical treatment.: Yes Discharge orders & Medications Prescriptions: New furosemide 40 mg Tablet 40 mg PO DAILY Qty: 30 0RF docusate sodium 100 mg Capsule 100 mg PO BID Qty: 30 0RF lactulose 20 gram/30 mL Solution 20 gm PO DAILY Qty: 30 0RF oxycodone 5 mg Tablet 5 mg PO Q8H PRN (Reason: Pain, Moderate (4-6)) Qty: 10 0RF Follow up/Referrals: Allison Miller ARNP [Primary Care Provider] - Miscellaneous,DoctorMD [Non-Staff] - Discharge Health Status Multidrug resistant organism: No MDRO Diet/Activity/Treatments Diet: Low-sodium Liquid consistency: Normal/Thin Food texture: Regular Diet comment: 2L fluid restriction Special Rehabilitation Services Rehab type: Physical therapy and Occupational therapy Visit Report/Discharge Packet Stand Alone Forms: Patient Portal/API, Stroke Signs & Symptoms Discharge Data Primary Care Provider: Allison Miller Attending Provider: Marva Avalos VTE Deep Vein Thrombosis/Pulmonary Embolism Present on Admission: No
--- NOTE | 2022-03-19 14:16 | CM.DPNOTE ---
DC Note Initially, [facility] P [phone] accepted patient for admission today. BLS arranged through Ambulance for p/u of 1545, attempted earlier continuous pickling line pickler through [facility] and they could not accommodate. Updated RN team with continuous pickling line pickler time Met w patient to review plan he remains agreeable to SNF stay. Patient requests call to friend Ino. [place] this afternoon after speaking with ED Luna SWer that VA auth needed before patient discharged to SNF otherwise SNF would have no reimbursement Spoke w/ Pili Villa at [facility] P [phone] today to update on plan. Pili is covering for assigned APS worker Aggie Canela P [phone] According to latest phone conversation w/both ED Luna and [facility], patient is still clinically accepted, now awaiting VA auth before admission. Dr Love updated Plan: Discharge to [facility] once VA authorization is in place, expected to be w/in 24 hours. BLS has been rescheduled for 1400 continuous pickling line pickler tomorrow 2.11.30 ALISHA Chavez
--- NOTE | 2022-03-19 14:25 | CM.DPNOTE ---
Known contacts for patient: (to be provided to [facility] upon discharge) Ino Ruiz, friend P [phone] Popeye Adkins Juan Diego, friend P [phone] Brad [facility] Hospital[facility] Dog Hair Clipper P [phone] APS: Pili Villa P [phone] and Aggie Canela P [phone] [place] Jose F Luna P [phone] ext [phone] Lauren Franklin [place] P [phone] [place] disease case manager rn (outpatient) HCS cloth winder machine operator Cari Davis [phone] ([email or web address]) [place], co-responder with the [employer] P [phone] [place] assigned antonietta Alberto P [phone], [facility] [employer] [facility] sheyla Wilder P [phone] JW
[2022-03-19 18:49] LABS: Hepatitis C Genoype 3 (.)
[2022-03-19 20:45] VITALS: BP 113/71; PULSE 84; RESP 18; TEMP 36.4; O2SAT 95
[2022-03-20] MEDS: PANTOPRAZOLE DR 20 MG TABLET PO (06:25)
[2022-03-20 08:00] VITALS: BP 117/69; PULSE 81; RESP 17; TEMP 36.7; O2SAT 94
[2022-03-20] MEDS: FUROSEMIDE 40 MG TABLET PO (10:00)
[2022-03-20] MEDS: OXYCODONE IR 5 MG TABLET PO (10:00)
--- NOTE | 2022-03-20 10:30 | P.DS_ITS ---
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 He was found to have a concerning liver lesion suspicious for HCC. During that hospitalization, it ws recommended he d/c to SNF. He adamantly refused. There were also discussions about d/c home w/hospice. He ultimately insisted on discharging home w/HH. He states he went home about a week ago and had friends and neighbors helping him. He states that they gathered a large group of people including the police, APS and 20 other people to come out to his home. He states he was forced to come to the ER. He c/o'd constipation in the ED and received lactulose and dulcolax w/good results. UTI was found and treatment was initiated. He has been in the ED for the past 2 days with attempts at discharge. SNF referrals have been made, he has participated in PT. He told the POLICYHOLDER INFORMATION CLERK he was receptive to placement. Unfortunately, due to it being a weekend, his Medicare/Medicaid status could not be verified and there was no POLICYHOLDER INFORMATION CLERK in the hospital today. Admission was recommended. Pt arrived to the floor and was c/o being very uncomfortable. Today he c/o'd abdominal pain. CT showed simple ascites. MRI has been recommended for further evaluation of the liver densities previously seen on imaging. His azul cath was leaking. He was noted to be tachypneic. He tells me he has a hx of colon cancer and reports that it has come back. He cannot provide additional detalis. He also states adamantly that he will not go to a SNF (reports he has been in 3 previously and he didn't get along w/them). He states he has been in an [facility] x 9 months in [place] at one point, and couldn't get along them. He denies being receptive to an AFH. He states he is able to go home as long as he gets a visiting nurse and says his dad did fine w/one. He has very little insight into his medical condition and poor performance status. Discharge Providers Provider Date of admission: 03/08/22 13:55 Discharge Date: 03/20/22 Primary care physician: MINGO Carl Consults: 03/06/22 13:32 Consult to POLICYHOLDER INFORMATION CLERK - Hadoop Java Developer Stat Comment: 03/06/22 18:42 Consult to POLICYHOLDER INFORMATION CLERK - Hadoop Java Developer Stat Comment: POLICYHOLDER INFORMATION CLERK Consult needed for:: Community Health Res Need Behavioral Health Assess 03/07/22 04:55 Consult to Physical Therapy Evaluate & Treat Comment: Physician Instructions: Evaluate and Treat Consult to Wound Care Stat Comment: Consulting Provider: [facility] 03/08/22 17:52 Consult to Dietitian, Adult Routine Comment: Reason For Exam: Severe PCM, chronic Consult to Discharge Planning Routine Comment: Consult to Occupational Therapy Evaluate & Treat Comment: Physician Instructions: Evaluate and treat Consult to Physical Therapy Evaluate & Treat Comment: Physician Instructions: Evaluate and Treat 03/08/22 18:06 Consult to POLICYHOLDER INFORMATION CLERK - Hadoop Java Developer Routine Comment: 03/08/22 18:23 Consult to POLICYHOLDER INFORMATION CLERK - Hadoop Java Developer Routine Comment: Discharge provider: Jules Madrigal DO Summary Hospital Course Discharge Diagnosis: 1. Cirrhosis 2. Possible liver mass 3. UTI 4. Protein calorie malnutrition, severe 5. Mild hepatic encephalopathy 6. History of colon cancer 7. Chronic weakness, lower extremity contractures 8. COVID positive, asymptomatic 9. Possible history of stroke, with left sided weakness Hospital Course: Mr. Paredes came in to the hospital with weakness, difficulty caring for himself at. He had a UTI which was treated. He was known to have cirrhosis, etiology is possibly alcoholic, he also was hepatitis C positive at this admission. He had Hep C genotyping sent and pending at discharge. He may benefit from treatment of this pending results. He had abdominal imaging with enchancement noted on CT scan, there was question of possible mass. He should have an MRI of his liver done as an outpatient. He had ascites, and paracentesis was attempted but there was not enough fluid to drain. He was started on lasix due to his abdominal distention. He had mild hepatic encephalopathy and was discharged with lactulose which he should take at least daily to prevent worsening confusion. He is discharged to SNF for PT and OT. Time Spent with Patient Time spent: Less than 30 minutes Exam Vital Signs (past 8 hours): - 03/20/22 08:00 Temperature 98.0 F Pulse Rate 81 Respiratory Rate 17 Blood Pressure 117/69 Pulse Oximetry 94 Oxygen Flow Rate 0 Oxygen Delivery Method Room Air Oxygen Flow Rate 0 Narrative Exam Narrative: GEN:?Cachectic elderly male, frail, alert CHEST:? Respiratory excursions symmetric, coarse but clear to auscultation bilaterally CV:? regular rate and rhythm, no murmurs, rubs, gallops ABD: soft non tender. NEURO:? Alert and oriented x3, grossly intact with slightly slurred speech Objective Labs 03/19/22 05:22 03/19/22 05:22 Labs: Laboratory Results - last 24 hr 03/15/22 05:50 Hepatitis C Genotype 3 Ref Lab Notation Comment [facility] Social History household members: none Smoking Status: Former smoker alcohol intake: former Discharge Plan Discharge Plan Patient Disposition: SNF I certify the postop hospital mcfp care is medically necessary on a continuing basis for any conditions for which he/ she received care during this hospitalization.: Yes The receiving facility has agreed to accept transfer and provide medical treatment.: Yes Discharge orders & Medications Prescriptions: New furosemide 40 mg Tablet 40 mg PO DAILY Qty: 30 0RF docusate sodium 100 mg Capsule 100 mg PO BID Qty: 30 0RF lactulose 20 gram/30 mL Solution 20 gm PO DAILY Qty: 30 0RF oxycodone 5 mg Tablet 5 mg PO Q8H PRN (Reason: Pain, Moderate (4-6)) Qty: 10 0RF Follow up/Referrals: Allison Miller ARNP [Primary Care Provider] - Miscellaneous,Doctor, MD [Non-Staff] - Discharge Health Status Multidrug resistant organism: No MDRO Diet/Activity/Treatments Diet: Low-sodium Liquid consistency: Normal/Thin Food texture: Regular Diet comment: 2L fluid restriction Catheter: 2-way Azul Catheter comment: May leave azul in place Special Rehabilitation Services Rehab type: Physical therapy and Occupational therapy Visit Report/Discharge Packet Stand Alone Forms: Patient Portal/API, Stroke Signs & Symptoms Discharge Data Primary Care Provider: Allison Miller Attending Provider: Marva Avalos VTE Deep Vein Thrombosis/Pulmonary Embolism Present on Admission: No
--- NOTE | 2022-03-20 15:03 | CM.DPNOTE ---
Addendum entered by ALISHA Licea 03/20/22 15:35: ADD: Updated LUDY Alejandre w/patient's DCP today, had to LM. KAYLA Original Note: DC Note Discharge to [facility] today. BLS transport pushed to 1500 Teresa from [facility] had availability to start patient's [facility] functional assessment this afternoon. Notified Crystal at [facility]. [place] NENA Velasquez, kindly agreed to assist with coordination of this discharge; most DC ppk had been completed yesterday in anticipation of DC to SNF Patient remains agreeable to plan. Plan: DC to [facility] SNF via BLS transport today (BLS transport due to COVID+ and has LE contractures) Attempting now to get patient's signatures on the [facility] consent forms before he leaves the building. If cannot obtain, will ask that Teresa email these documents to [facility] for signatures JW
--- NOTE | 2022-03-27 16:02 | PC.NURSE ---
Late entry: Vancomycin infusion initiated 03/08 at 2330 complete 0101.
== END 2022-03-20 16:26 ==
LOC: ED 03-07 09:04 → AC 03-07 11:38 → ED 03-07 18:06 → AC 03-09 08:07
PROVIDERS: Emergency Medicine; Internal Medicine; Student in an Organized Health Care Education/Training Program; Admitting Provider Family Medicine; Emergency Provider Emergency Medicine; PCP Registered Nurse; Referring Provider Emergency Medicine; Visit Provider Family Medicine
DX: N39.0 Urinary tract infection, site not specified (principal); B96.20 Unspecified Escherichia coli [E. coli] as the cause of diseases classified elsewhere; E43 Unspecified severe protein-calorie malnutrition; U07.1 COVID-19; K74.60 Unspecified cirrhosis of liver; R18.8 Other ascites; K76.82 Hepatic encephalopathy; R53.1 Weakness; F17.210 Nicotine dependence, cigarettes, uncomplicated
CPT/HCPCS: 36415; 71260; 74022; 74177; 80048; 80053; 80305; 80320; 81001; 82140; 82962; 83690; 83735; 85025; 85027; 85610; 85730; 87077; 87086; 87186; 87635; 93005; 93971; 96361; 96365; 96366; 96367; 96375; 97110; 97162; 97167; 97530; 97535; 99285; C9803; G0378; J0290; J0696; J1650; J1940; Q9967